=== PATIENT | male | born 1940 | race Caucasian/White ===

== ENCOUNTER 2018-04-01 15:32 | Outpatient (REF) | payer MEDICARE, OTHER, SELFPAY ==
[2018-04-01 19:31] LABS: Anion Gap 11.8 mmol/L (3-11); CO2 23.2 mmol/L (21.0-32.0); Chloride 108 mmol/L (98-107); Potassium 4.2 mmol/L (3.5-5.1); Sodium 143 mmol/L (136-145)
[2018-04-01 20:18] LABS: BUN 21 mg/dL (7-18); CREATININE 1.66 mg/dL (0.70-1.30); Calcium 8.5 mg/dL (8.5-10.1); Estimated GFR 40.48 (mL/min/1.73m2); Glucose 121 mg/dL (70-100); NT-proBNP 1569 pg/mL
== END 2018-04-01 15:52 ==
LOC: NCHCN 15:32
PROVIDERS: PCP Internal Medicine; Visit Provider Family Medicine
DX: I50.9 Heart failure, unspecified (principal); R05 Cough
CPT/HCPCS: 80048; 83880

== ENCOUNTER 2018-04-01 16:03 | Outpatient (CLI) | payer MEDICARE, OTHER, SELFPAY ==
--- NOTE | 2018-04-01 15:11 | DI.RAD_ITS ---
SYMPTOMS/DIAGNOSIS: COUGH, R05 PA AND LATERAL CHEST: Comparison is made with March,. The heart is enlarged, unchanged. The aorta is mildly tortuous. The lungs appear clear. No infiltrate, effusion or pulmonary edema is seen. Surgical clips are seen in the right upper quadrant. There are prominent osteophytes in the thoracic spine. IMPRESSION: Cardiomegaly. No acute abnormality.
== END 2018-04-01 16:23 ==
PROVIDERS: PCP Internal Medicine; Visit Provider Family Medicine
DX: R05 Cough (principal); I51.7 Cardiomegaly
CPT/HCPCS: 71046

== ENCOUNTER 2019-01-27 15:22 | Outpatient (CLI) | payer MEDICARE, OTHER, SELFPAY ==
--- NOTE | 2019-01-27 16:02 | PFT_ITS ---
PULMONARY FUNCTION TEST REPORT DATE OF SERVICE: January 27, 2019 REQUESTING PROVIDER: Tiera Phillip M.D. Spirometry shows no evidence of obstructive disease; no bronchodilator response. Lung volumes show mild restriction. Diffusion capacity mildly reduced, which is normal when corrected to alveolar volume, though it is somewhat suboptimal patient effort. Airways resistance normal. IMPRESSION: Suboptimal patient effort for spirometry. Lung volume measurements are consistent with mild restriction. This is associated with mild diffusion defect, though the diffusion capacity maneuver was also suboptimal. Therefore clinical correlation recommended. BEATRIZ/marcos D/
[2019-01-27] MEDS: Inhaler, Assist Device 1 EACH MC (16:46)
[2019-01-27] MEDS: Albuterol HFA 18 GM 200 PUFF INH IH (16:47)
== END 2019-01-27 15:42 ==
PROVIDERS: Visit Provider Family Medicine
DX: R05 Cough (principal); R06.09 Other forms of dyspnea
CPT/HCPCS: 94060; 94150; 94726; 94729

== ENCOUNTER 2019-02-03 01:16 | Outpatient (CLI) | payer MEDICARE, OTHER, SELFPAY ==
--- NOTE | 2019-02-03 12:00 | DI.CT_ITS ---
SYMPTOM/DIAGNOSIS: CHRONIC COUGH, R05 CHEST CT: CT scan of the chest was performed following the uneventful administration of intravenous contrast material. The visualized thyroid gland is unremarkable. There is atherosclerosis of the thoracic aorta but no aneurysm or dissection is seen. The heart is enlarged. No significant pericardial effusion is seen. Coronary artery calcifications are present. No thoracic adenopathy, pleural effusion or pneumothorax is identified. The tracheal air shadow is unremarkable. No pulmonary masses are seen. Mild apparent peripheral interstitial fibrotic changes are seen. No focal consolidating infiltrates are identified. Upper abdominal images show the patient is status post cholecystectomy. There is a small hiatal hernia. 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 IMPRESSION: 1. Cardiomegaly. 2. Findings most suggestive of pulmonary fibrosis. No acute pulmonary process. 3. No evidence of a thoracic mass or metastatic disease. 4. Cardiomegaly.
[2019-02-03 12:39] LABS: Estimated GFR 36.77 (mL/min/1.73m2)
[2019-02-03] MEDS: Omnipaque 350 MG/ML 100 ML BTL IJ (13:07)
== END 2019-02-03 01:36 ==
PROVIDERS: PCP Family Medicine; Visit Provider Family Medicine
DX: R05 Cough (principal); I51.7 Cardiomegaly; J84.10 Pulmonary fibrosis, unspecified; Z13.29 Encounter for screening for other suspected endocrine disorder
CPT/HCPCS: 71260; 82565; J3490

== ENCOUNTER 2019-02-13 16:54 | Outpatient (REF) | payer MEDICARE, OTHER, SELFPAY ==
[2019-02-13 16:06] LABS: Anion Gap 13.2 mmol/L (3-11); BUN 21 mg/dL (7-18); CO2 21.8 mmol/L (21.0-32.0); CREATININE 1.65 mg/dL (0.70-1.30); Calcium 8.6 mg/dL (8.5-10.1); Chloride 107 mmol/L (98-107); Estimated GFR 40.65 (mL/min/1.73m2); Glucose 115 mg/dL (70-100); Potassium 4.2 mmol/L (3.5-5.1); Sodium 142 mmol/L (136-145)
== END 2019-02-13 17:14 ==
LOC: NCHCN 16:54
PROVIDERS: PCP Family Medicine; Visit Provider Family Medicine
DX: N18.3 Chronic kidney disease, stage 3 (moderate) (principal)
CPT/HCPCS: 80048

== ENCOUNTER 2020-04-04 13:58 | Outpatient (REF) | payer MEDICARE, OTHER, SELFPAY ==
[2020-04-04 19:35] LABS: HCT 41.5 % (40.0-50.0); HGB 13.7 g/dL (13.5-17.5); MCH 33.7 pg (27.0-33.0); MCV 102.2 fL (80-95); MPV 10.5 fL (8.0-11.0); Platelet Count 232 10^3/uL (130-400); RBC 4.06 10^6/uL (4.36-5.78); RDW 13.1 % (11.8-14.1); RDW-SD 49.7 fL; WBC 5.34 10^3/uL (4.4-10.8)
[2020-04-04 19:40] LABS: ALT 22 U/L (16-63); AST 29 U/L (15-37); Albumin 3.3 g/dL (3.4-5.0); Alkaline Phosphatase 72 U/L (46-116); Anion Gap 12.1 mmol/L (3-11); BUN 16 mg/dL (7-18); Bilirubin, Total 1.4 mg/dL (0.2-1.0); CO2 22.9 mmol/L (21.0-32.0); CREATININE 1.42 mg/dL (0.70-1.30); Calcium 8.5 mg/dL (8.5-10.1); Chloride 105 mmol/L (98-107); Estimated GFR 48.22 (mL/min/1.73m2); Glucose 116 mg/dL (74-106); Sodium 140 mmol/L (136-145); TSH (W/Ref FT4) 1.38 uIU/mL (0.36-3.74); Total Protein 6.2 g/dL (6.4-8.2)
[2020-04-04 21:08] LABS: Hemoglobin A1C 5.8 % (<5.7)
== END 2020-04-04 14:18 ==
LOC: NCHCN 13:58
PROVIDERS: PCP Family Medicine; Visit Provider Family Medicine
DX: R73.03 Prediabetes (principal); I48.91 Unspecified atrial fibrillation; I10 Essential (primary) hypertension
CPT/HCPCS: 80053; 85027; 83036; 84443

== ENCOUNTER 2020-04-08 10:32 | Outpatient (REF) | payer MEDICARE, OTHER, SELFPAY ==
[2020-04-08 19:35] LABS: Folate 10.5 ng/mL (8.6-20.0); Vitamin B12 413 pg/mL (193-986)
== END 2020-04-08 10:52 ==
LOC: NCHCN 10:32
PROVIDERS: PCP Family Medicine; Visit Provider Family Medicine
DX: R53.83 Other fatigue (principal); E53.9 Vitamin B deficiency, unspecified
CPT/HCPCS: 82607; 82746

== ENCOUNTER 2021-01-09 13:20 | Outpatient (REF) | payer MEDICARE, OTHER, SELFPAY ==
[2021-01-09 19:33] LABS: HCT 39.1 % (40.0-50.0); HGB 12.9 g/dL (13.5-17.5); MCV 103.2 fL (80-95); MPV 10.1 fL (8.0-11.0); Platelet Count 216 10^3/uL (130-400); RBC 3.79 10^6/uL (4.36-5.78); RDW 13.2 % (11.8-14.1); RDW-SD 50.4 fL; WBC 6.88 10^3/uL (4.4-10.8)
[2021-01-10 12:01] LABS: Vitamin B12 > 2000 pg/mL (193-986)
== END 2021-01-09 13:21 | disposition home or self-care (01) ==
LOC: LBN 13:20
PROVIDERS: PCP Family Medicine; Visit Provider Family Medicine
DX: E53.9 Vitamin B deficiency, unspecified (principal); R53.83 Other fatigue
CPT/HCPCS: 85027; 82607

== ENCOUNTER 2021-03-19 11:42 | Outpatient (REF) | payer MEDICARE, OTHER, SELFPAY ==
[2021-03-19 14:34] LABS: HCT 42.2 % (40.0-50.0); MCH 33.3 pg (27.0-33.0); MCHC 33.2 % (32.0-36.0); MCV 100.5 fL (80-95); MPV 10.3 fL (8.0-11.0); Platelet Count 232 10^3/uL (130-400); RDW 13.1 % (11.8-14.1); RDW-SD 48.7 fL; WBC 6.35 10^3/uL (4.4-10.8)
[2021-03-19 15:38] LABS: Iron 110 ug/dL (65-175); Total Iron Binding Capacity 246 ug/dL (250-450); Transferrin Sat 45 % (20-55)
[2021-03-19 15:49] LABS: Ferritin 192 ng/mL (26-388); Folate 6.8 ng/mL (8.6-20.0)
== END 2021-03-19 11:43 | disposition home or self-care (01) ==
LOC: NCHCN 11:42
PROVIDERS: PCP Family Medicine; Visit Provider Family Medicine
DX: D64.9 Anemia, unspecified (principal)
CPT/HCPCS: 85027; 82728; 82746; 83540; 83550

== ENCOUNTER 2021-04-17 14:56 | Outpatient (REF) | payer MEDICARE, OTHER, SELFPAY ==
[2021-04-17 19:11] LABS: ALT 24 U/L (16-63); AST 32 U/L (15-37); Albumin 3.8 g/dL (3.4-5.0); Alkaline Phosphatase 89 U/L (46-116); Anion Gap 13.3 mmol/L (3-11); BUN 16 mg/dL (7-18); Bilirubin, Total 1.2 mg/dL (0.2-1.0); CO2 24.7 mmol/L (21.0-32.0); CREATININE 1.4 mg/dL (0.70-1.30); Calcium 8.9 mg/dL (8.5-10.1); Calculated LDL 74 mg/dL (<100); Chloride 105 mmol/L (98-107); Cholesterol 137 mg/dL (<200); Estimated GFR 48.89 (mL/min/1.73m2); Folate > 20.0 ng/mL (8.6-20.0); Glucose 133 mg/dL (74-106); HDL Cholesterol 45 mg/dL (40-60); Potassium 4.4 mmol/L (3.5-5.1); Sodium 143 mmol/L (136-145); Total Protein 7.1 g/dL (6.4-8.2); Triglyceride 91 mg/dL (<150); Vitamin B12 > 2000 pg/mL (193-986)
[2021-04-17 19:14] LABS: HCT 43.3 % (40.0-50.0); HGB 13.9 g/dL (13.5-17.5); MCH 33.3 pg (27.0-33.0); MCHC 32.1 % (32.0-36.0); MCV 103.8 fL (80-95); MPV 10.5 fL (8.0-11.0); Platelet Count 244 10^3/uL (130-400); RBC 4.17 10^6/uL (4.36-5.78); RDW 13.6 % (11.8-14.1); RDW-SD 51.8 fL; WBC 8.52 10^3/uL (4.4-10.8)
[2021-04-17 19:29] LABS: NT-proBNP 1070 pg/mL (<300)
[2021-04-17 20:13] LABS: Hemoglobin A1C 5.9 % (<5.7)
== END 2021-04-17 14:57 | disposition home or self-care (01) ==
LOC: NCHCN 14:56
PROVIDERS: PCP Family Medicine; Visit Provider Family Medicine
DX: I10 Essential (primary) hypertension (principal); I50.32 Chronic diastolic (congestive) heart failure; E78.5 Hyperlipidemia, unspecified; N18.30 Chronic kidney disease, stage 3 unspecified; D53.1 Other megaloblastic anemias, not elsewhere classified
CPT/HCPCS: 80053; 80061; 85027; 82607; 82746; 83036; 83880

== ENCOUNTER 2022-04-13 13:22 | Outpatient (REF) | payer MEDICARE, OTHER, SELFPAY ==
[2022-04-13 15:41] LABS: Hemoglobin A1C 5.8 % (<5.7)
[2022-04-13 16:01] LABS: Anion Gap 10.7 mmol/L (3-11); BUN 15 mg/dL (7-18); CO2 22.3 mmol/L (21.0-32.0); CREATININE 1.4 mg/dL (0.70-1.30); Calcium 9.1 mg/dL (8.5-10.1); Chloride 106 mmol/L (98-107); Estimated GFR 50.81 (mL/min/1.73m2); Glucose 118 mg/dL (74-106); NT-proBNP 950 pg/mL (<300); Potassium 4.2 mmol/L (3.5-5.1); Sodium 139 mmol/L (136-145)
--- OUTSIDE RECORDS SUMMARY | 2022-04-14 13:30 | XMS_ITS | Encounter Summary ---
:1940 Author Organization [facility] Address [address] [place] [address] Care Team Providers Name Role Phone Tiera Phillip MD Primary Care Provider Reason for Visit Reason Comments Procedure Encounter Details Date Type Department Care Team Description 03/17[facility]20[facility] palm[facility] carcinoma Kelly Bridges MD (BCC) of skin of [address] [facility] [place] [address] [address] [address] including shoulder [phone] [facility] [place], [place] [address] Social History Tobacco Use Types Packs/Day Years Used Date Never Smoker Smokeless Tobacco: Never Used Alcohol Use Standard Drinks/Week Comments No 0 (1 standard drink = 0.6 oz pure alcoho l) Sex Assigned at Date Recorded Not on file documented as of this encounter Patient Instructions Patient InstructionsJoy Zendejas RN - 03/17/2022 4:00 PM EDT ED&C Wound Care Instructions Your treatment today: You have had an Electrodesiccation and Curettage (ED&C) of your skin, which is a method to destroy skin cancer. This wound will heal without stitches. Allow 3-6 weeks for the wound to heal fully. If bleeding occurs, hold firm, constant pressure against the wound for 15-20 minutes (with no peeking). If bleeding continues, call the clinic or go to your local emergency department. Wound care instructions: Keep the bandage placed over the wound dry and intact for 24 hours. Afterwards, perform the following wound care daily: Wash your hands. Remove the bandage, clean the area with soap and water, and gently pat dry. Apply a small amount of Vaseline and cover with a Band-Aid. Repeat daily until the wound is healed fully. A small amount of yellow drainage is part of the normal healing process. The area might appear as a small depression with redness around the edge of the wound; this is normal. Please contact the clinicif you notice any of the following signs of infection: increased pain, tenderness, drainage, or redness that becomes hot or hard around the wound. Contact information: On weekdays (8 am to 5 pm), please call the clinic at [phone]. After 5 pm, and on weekends and holidays, please call the hospital at [phone] and ask for the Financial Retirement Plan Specialist Cold Rolling Machine Setter. documented in this encounter Progress Notes Blanca Feliciano MD - 03/17/2022 4:00 PM EDT Images from the original note were not included. DEPARTMENT OF DERMATOLOGY Medical Dermatology Clinic Provider: BLANCA FELICIANO MD Patient's preferred name Reinier Preferred contact method for results [x]Phone (Cell) []myD-H []Letter Detailed phone message OK? Yes Are there any other people with whom we may discuss your care? (Alexandra) Past Medical History Date, location, treatment Melanoma 08/2010??(outside path):??Right forearm,??melanoma??(s/p excision, negative SLNB) Dysplastic nevi No SCC 03/27/19: Right lateral canthus, SCC (s/p Mohs) 03/27/19: Right lateral eyebrow, SCC (s/p Mohs) BCC 07/04/12:??Right clavicle, BCC??(s/p ED&C) 04/14/16:??Left preauricular, nodular BCC??(s/p ED&C) 02/09/17:??Left nasal ala, nodular BCC??(s/p Mohs) 03/03/22: Right forearm, nodular BCC (s/p ED&C 03/17/22) AKs Numerous; s/p LN2 UV Exposure & Protection No Other relevant past medical history 02/17/12: Right forearm, HAK (LN2) ?? Xerosis Family History Details Melanoma No NMSC No Other relevant family history No Social History Occupation: Retired Served 26 years in the [employer] Marital status: [place] in [place] and [place] Pre-Procedure Questions Details Allergy to lidocaine, epinephrine, Dermabond, chlorhexidine, or adhesives No Bleeding disorder or blood thinners Yes: Xarelto Pacemaker, defibrillator, deep brain stimulator, cochlear implant No History of Present Illness: Reinier Ramirez is a 81 y.o. Patient returns to clinic today for treatment of a biopsy-proven nodular basal cell carcinoma on the right forearm. Last FSE 03/03/22 (waist-up exam) Medications: Reviewed in eD-H Allergies: Reviewed in eD-H Skin Examination: Focused skin examination of the right forearm was normal with the exception of the findings below. Assessment/Plan A. Biopsy-Proven BCC (nodular) - 0.7 cm healing biopsy site on the right forearm. - Reviewed pathology and ED&C procedure with patient. Rexford decision to proceed with ED&C today. - Patient denies allergies to lidocaine and epinephrine. - Patient denies having a pacemaker or defibrillator. Procedure: Destruction of lesion by electrodesiccation and curettage (ED&C) Location: As noted above. Discussed indications and expectations including risks and benefits. Verbal consent obtained. Skin prepped with alcohol. Local anesthesia with 1% xylocaine, 1/100,000 epinephrine. The entire lesion plus a small margin was treated. Post- curettage defect size: 1.5 cm. There were no complications; patient tolerated the procedure well. Wound dressed. Expectations (including discomfort management) and wound care reviewed. Other: ??? Reviewed and/or interpreted test results RTC: February 2023 for 1-yr FSE []Note routed to alumni secretary [x]Recall in scheduling system []Appointment scheduled at checkout Scribe attestation: Paradise Brar CMA and Joy Zendejas RN have performed the documentation for this encounter in the presence of and acting as a scribe for BLANCA FELICIANO MD. I performed the above scribed service and agree with the accuracy of the documentation in this encounter. Reviewed and signed by: BLANCA FELICIANO MD Dermatology [facility] documented in this encounter Plan of Treatment Not on filedocumented as of this encounter Visit Diagnoses Diagnosis Basal cell carcinoma (BCC) of skin of [facility] upper extremity including shoulder documented in this encounter Care Teams Meter And Regulator Shop Supervisor Relationship Specialty Start Date End Date Tiera Phillip MD PCP - General Family Medicine 02/09/19 [address] [place] [address] documented as of this encounter
--- OUTSIDE RECORDS SUMMARY | 2022-04-14 13:30 | XMS_ITS | Clinical Summary ---
:1940 Author Organization [facility] [place] [address] Care Team Providers Name Role Phone Tiera Phillip MD Primary Care Provider Allergies Active Allergy Reactions Severity Noted Date Comments Fpvjqkl-Acf-Qaq Reductase Inhibitors 12/2014 Swelling in joints Medications Medication Sig Dispensed Refills Start Date End Date Status finasteride (PROSCAR) Take 5 mg by mouth 0 Active 5 mg Tablet daily. furosemide (LASIX) 40 Take 10 mg by 0 Active mg Tablet mouth daily. potassium chloride Take 20 mEq by 0 Active (KLOR-CON) 20 mEq mouth daily. Packet triamcinolone Apply to affected 45 g 0 02/07/2019 Active (KENALOG) 0.1 % areas on underarms CreamIndications: 2x/day for 2 weeks Irritant contact then stop dermatitis, unspecified trigger Additional Information Patient not taking. Reported on 02/12/2020 atenolol (TENORMIN) 25 mg TAKE 1 TABLET DAILY 90 tablet 3 08/2018 Active TabletIndications: Chronic atrial fibrillation, Essential hypertension, Left ventricular hypertrophy simvastatin (ZOCOR) 10 mg TAKE 1 TABLET NIGHTLY 90 tablet 3 Active TabletIndications: ASCVD (arteriosclerotic cardiovascular disease) XARELTO 20 mg TabletIndications: TAKE 1 TABLET DAILY 90 tablet 3 04/19/2019 Active Chronic atrial fibrillation, Essential hypertension, Left ventricular hypertrophy Active Problems Problem Noted Date (HFpEF) heart failure with preserved ejection fraction 04/27/2019 Chronic cough 04/27/2019 Anemia of chronic renal failure, stage 3 (moderate) Rupture of right quadriceps tendon 04/14/2017 Rupture of left quadriceps tendon 04/14/2017 Primary osteoarthritis of both knees 04/14/2017 Chronic pain of both knees 04/14/2017 Possible ASCVD (arteriosclerotic cardiovascular diseas e) 04/07/2017 Overview: ?? Inferior wall motion abnormalities on echo's at [facility] 02/15/14 and 03/30/17 ?? Nuclear stress test at [facility] 10/26/16 showing normal perfusion ?? Kurta Edmund March 30, 2017 show ing normal left ventricular size, ejection fraction 60%, and wall motion abnormalities with inferior hypokinesia. ?? Regadenoson sestamibi [facility] April 22, 2017 showing normal perfusion; normal wall thickening MICK (obstructive sleep apnea) 02/19/2015 Morbid obesity 02/19/2015 Bilateral leg weakness 02/19/2015 Chronic atrial fibrillation 02/17/2014 Overview: ?? Diagnosed 11/2013, without symptoms du ring visit with pharmacist hospital, ?? Asymptomatic ?? [id number] score = 2 (age and HTN) Hypertension 02/17/2014 Diverticulosis 02/17/2014 Left ventricular hypertrophy 02/17/2014 Overview: -TTE 02/17/2014 shows eccentric left ventr icular enlargement (moderate LV dilation with LVEDD 6.3cm, normal LVEF 55%, no concentric LVH) AK (actinic keratosis) 02/01/2014 History of melanoma 04/28/2013 Resolved Problems Problem Noted Date Resolved Date Snoring 02/17/2014 02/19/2015 Encounters Date Type Specialty Care Team Description 03/17/2022 Office Visit Dermatology Sakshi Meek MD Basal cell carcinoma (BCC) of skin of righ t upper extremity inclu ding shoulder 03/03/2022 Office Visit Dermatology Sakshi Meek MD Neopl asm of unspecified behavior of bone, soft tissue, and skin; AK (actinic ker atosis); Kelly angioma; Xerosis of skin from Last 3 Months Social History Tobacco Use Types Packs/Day Years Used Date Never Smoker Smokeless Tobacco: Never Used Alcohol Use Standard Drinks/Week Comments No 0 (1 standard drink = 0.6 oz pure alcoho l) Sex Assigned at Date Recorded Not on file Last Filed Vital Signs Vital Sign Reading Time Taken Comments Blood Pressure 109/44 04/14/2019 10:41 AM EDT Pulse 76 04/14/2019 10:41 AM EDT Temperature - - Respiratory Rate 24 04/14/2019 10:41 AM EDT Oxygen Saturation 96% 04/14/2019 10:41 AM EDT Inhaled Oxygen Concentration - - Weight 122.5 kg (270 lb) 04/14/2019 10:41 AM EDT Height 180.3 cm (5' 11) 04/14/2019 10:41 AM EDT Body Mass Index 37.66 04/14/2019 10:41 AM EDT Plan of Treatment Health Maintenance Due Date Last Done Comments Covid-19 Vaccine (#1) 1945 Pneumoccocal Vaccine: 65+ (1 - PCV) 1946 Hepatitis C Screening 1959 Tdap adult 1960 Tetanus vaccine 1960 Zoster vaccine (1 of 2) 1991 Advance Directive 1996 Influenza (Flu) vaccine (1 of 1 - Influenza standard 03/19/2022 series) Procedures Procedure Name Priority Date/Time Associated Diagnosis Comme nts SPECIMEN TO Routine 03/03/2022 11:44 AM Neoplasm of Results for this PATHOLOGY EDT unspecified behavior procedu re are in of bone, soft the results tissue, and skin section. SURGICAL PATHOLOGY Routine 03/03/2022 11:38 AM Re sults for this REPORT EDT procedure are i n the results section. from Last 3 Months Results Specimen to Pathology (03/03/2022 11:44 AM EDT) Specimen Anatomical Collection Method Collection Time Receive d Time (Source) Location / / Volume Laterality AP Specimen 03/03/2022 11:44 03/03/2022 AM EDT 11:44 AM EDT Narrative [facility] - 03/03/2022 11:44 AM EDT Specimen requisition ordered. ??Separate Pathology report to follow Sakshi Meek MD PATHOLOGY/CYTOLOGY ORDERABLE S Performing Organization Address City/State/[place] [address] Surgical Pathology Report (03/03/2022 11:38 AM EDT) Component Value Ref Test Analysis Performed At [facility] Range Method Time Signature Surgical -[id number] ? Location: [facility] MIKE Report The signing pathologist has (i) examined the relevant preparation(s) for the [facility] specimen(s) and (ii) rendered or confirmed the diagnosis(es) . HOSPITAL LAB[facility]ORY . ?Surgic al Pathology DIAGNOSIS A. R ight forearm, skin shave biopsy: - ??Basal cell carcinoma, nodular type, transected Electronically signed by: ?Heidi SAUCEDO, Reinier Catalan Verified: ??03/05/2022 14:03 ??Dermatopathologist Performed at: ??-[facility] Dept. of Pathology, [place], [place] SPECIMEN(S) SUBMITTED A - right forearm, skin shave biopsy (1) CLINICAL INFORMATION Heme crusted plaque; SCC SPECIMEN PROCESSING A - Labeled/Fixative: Patient demographics, formalin. Quantity/Size: ??Single, 1.0 x 1.0 x 0.3 cm. Tissue Description: Shave of a pink-red, crusted skin plaque . Sections/Processing: Inked, trisected and entirely submitted in 1 cassette labele d A1. ??sns Specimen (Source) Anatomical Collection Method Collection Time Re ceived Time Location / / Volume Laterality 03/03/2022 11:38 AM EDT Sakshi Meek MD PATHOLOGY/CYTOLOGY ORDERABLE S Performing Organization Address City/State/ZIP Code [place] [address] [facility] [address] from Last 3 Months Insurance Payer Benefit Plan / Subscriber ID Effective Dates Phone Addre ss Type Group MEDICARE MEDICARE PART [id number] 2006-Prese [phone] [place] [phone] FOR FOR [id number] 2018-Prese [phone] [address] [place] [address] Care Teams Oral And Maxillofacial Surgeon Relationship Specialty Start Date End Date Tiera Phillip MD PCP - General Family Medicine 02/09/19 [address] [place] [address]
--- OUTSIDE RECORDS SUMMARY | 2022-04-14 13:30 | XMS_ITS | Encounter Summary ---
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 ey e canthus [address] [place] [facility] [id number] [facility] [phone] [place] [id number] Social History Tobacco Use Types Packs/Day Years Used Date Never Smoker Smokeless Tobacco: Never Used Alcohol Use Standard Drinks/Week Comments No 0 (1 standard drink = 0.6 oz pure alcoho l) Sex Assigned at Date Recorded Not on file documented as of this encounter Last Filed Vital Signs Vital Sign Reading Time Taken Comments Blood Pressure 117/77 04/07/2019 9:44 AM EDT Pulse 68 04/07/2019 9:44 AM EDT Temperature - - Respiratory Rate - - Oxygen Saturation - - Inhaled Oxygen Concentration - - Weight - - Height - - Body Mass Index - - documented in this encounter Patient Instructions Patient InstructionsToMariana nunez CMA - 04/07/2019 9:30 AM EDT Your staff surgeon today was [facility] Wong MD,PhD. Your wound(s) was repaired by [id number]-[id number] stitches called a primary repair. You do not need to come back for suture removal because only absorbablysutures were used today. If the absorbable sutures bother your skin or do not absorb after 2 weeks, you may call us to remove them for you. Instructions are as below. Please keep this as a reference: Wound Care For wounds closed with absorbable-only stitches: ??? Gently remove your initial bandage (after 48 hours from surgery) and begin wound care as below. ??? If your initial bandage only lasts 24 hours (for example, falls off sooner), this is okay. Resume your wound care and bandaging instructions as below. ??? Change your bandage once a day (and whenever it becomes wet or soaks through). DO WOUND CARE FORONE WEEK. ??? For bandage changes: o Wash hands with soap and water, or use gloves that you can purchase a local pharmacy or drug store. o Clean the surgical area with cotton-tipped swabs or gauze dipped in soapy water (recommend liquid soap in clean room temperature water). Do not scrub the area or put direct shower water pressure ontoyour wound. It is okay to allow soapy water to run over your wound in the shower. o If you cannot remove crusted areas, you may soak with wet gauze first for 15 to 20 minutes to helpsoften it o Pat the area dry with clean gauze or cotton swabs. Do not rub. o Use a cotton swab to apply a generous layer of petroleum jelly over the incision lines and any open-wound areas. o Cover with clean nonstick gauze or other nonstick dressing, such as Telfa. This may be purchased over the counter at a drug store. Secure with paper tape or bandage. Band-aids are okay, but typicallyhave more adhesive that can irritate the skin compared to paper tape. o Continue wound care daily until stitches are removed. o Discontinue wound care after 7 days. o Allow the absorbable stitches to heal. If the top stitches that are absorbable are irritating yourskin, you may call us to have them removed. Otherwise, they will be absorbed naturally in approximately 2 weeks. It may absorb as quickly as 4 days. After Surgery 1. Avoid tobacco, smoking/vapors, cigars, and cannabis (marijuana) for at least 3 weeks after your surgery. These prevent proper healing and lead to worse scarring. Cutting back on tobacco is helpful if you cannot abstain completely. 2. Do not drink alcohol for roughly 3 days as this can slow healing or cause bleeding. 3. Do not participate in athletic activities for 1 week, unless you were told a different timeline during your visit. Athletic activity is a relative term, but this is considered to be anything that could potentially raise your heartrate or blood pressure. Elevating your heart rate and blood pressure increases the risk of swelling, bleeding, wound opening, and it could lead to worse scarring. Walkingat a leisurely pace is fine for most people, but not if you are walking for the purpose of exercise.When in doubt, take it easy or call us. 4. Do not lift anything heavier than 10 pounds until your sutures are removed. 5. Some mechanical artist may need to be delayed or delegated such as vacuuming, mowing the lawn, snow shoveling, or caring for young children that need to be carried/lifted. Working any major muscle groups increases your heart rate and can increasing bleeding. 6. Avoid swimming, hot tubs, and direct water pressure for 3 weeks after surgery. You may shower, however, once your initial bandage comes off in 48 hours. 7. Avoid antibiotic ointments such as triple antibiotic creams. Stick with your wound care instructions, please. 8. Whenever possible, it is helpful to take photographs with your camera or cell phone of any problems or concerns you see with your wound. We often ask for photos when you call with questions. 9. Starting 2 months following surgery, you can begin firm massage to any areas of firm scar along your incision to soften the scar and reduce bumpiness. Do this 3 times per day, 3 minutes each time. Do not start massage before 2 months. 10. Your wound will appear almost completely healed soon after sutures are removed (about 1 week), but incisions can remain bright red for several weeks. Then the scarring and healing process continuesunder the skin for 6 months until to 2 years. The scar may become less red, less firm, and more subtle during this time; please note that the rate of improvement varies depending on the person. Most redness, discoloration, bumpiness resolves by 6 months, and most patients will look presentable within a few weeks after surgery. 11. Keep your follow-up appointments and make sure to continue to have your skin checked, as often as is recommended by your goods layer, for new skin cancers. This is once per year for most patients. 12. Your can expect your scar to be red for several weeks with gradual fading of the redness. Your scar will also be raised and lumpy until the dissolvable sutures under the skin get absorbed by your body which can take 3-4 months. The scar will flatten eventually. a. If you have a skin condition called rosacea, the redness can last long-term, or you can get an increased appearance of red vessels to the skin. The appearance of vessels slightly improves, but tendsto respond well to laser treatments. 13. Occasionally, about 20% of the time on the face, the stitches under the skin can spit out of the incision to the surface. It can start out looking like a pimple or blemish directly on your incision. Sometimes you can feel something poking through the incision. it can look also minic a small areaof infection, so please let us know before you go to another provider for antibiotics. This means that the suture may need to be trimmed or removed when you return for your wound check. This typically occurs a few weeks after surgery if it does occur. 14. To optimize your scar, and best cosmetic result, please avoid direct sunlight to your incision for the first 6 months following surgery. UV ray exposure to your incision may cause the redness to last longer, or to cause permanent darkening of your scar. You can avoid sun by covering your incision w ith a bandage when outdoors, wearing broad-rimmed hats, and wearing SPF 30 to 50 sunscreen (broad spectrum). 15. Sometimes after your sutures are removed, your incision may still be healing for 1 more week. Because of this, avoid make-up and sunscreen until approximately 2 weeks after surgery. You can begin sooner if your skin edges look completely sealed. 16. Any time you have skin surgery or any type of surgery, you can experience mild sensation loss (numbness) in the area of surgery. Massage starting at 8 weeks after surgery can help. 17. Swelling and bruising is common, and expected, especially if your surgery site was on the forehead, cheeks, temples, nose, or eyelids. . Sometimes it can be quite profound, where the eyelids swell shut, or getting black eyes. This is especially true if you are on blood thinners such as aspirin. Swelling and bruising will peak at about 48 hours after surgery. Bruising and swelling will graduallyresolve. You can use ice packs or a bag of frozen peas for 15-20 minutes, 20 minutes off, up to 3-4 times daily to areas of swelling on the face. Use caution not to put the icy item directly onto your incision, or directly in contact with your skin as this can damage skin. Avoid prolonged use more than 20 minutes. The best way to use ice packs is over the bandage, or using a light cloth/paper towel barrier between the ice pack and your skin. You can ice for as many days as needed until swelling has resolved. Eyelid and lip swelling is typically the last type of swelling to resolve. o Keep in mind that if you do not want to use a bandage at all due to difficulty, allergies, irritation of skin, cost, time, or inconvenience --- you can certainly avoid bandages altogether. However, itis imperative that you continue with topical petrolatum ointment or Aquaphor (plain, fragrance-free). This may need to be applied several times daily if it gets wiped off, washed off, or dries out. Things to purchase for wound care: -Nonstick gauze -A tube or tub of petrolatum jelly (fragrance-free, no dye, not lotion) -paper tape -cotton swabs -gloves (optional) -Dial or other antibacterial liquid soap If you have specific questions or instructions, it can be written/typed by your nurse or doctor here: Antibiotics: If you were given antibiotic prescription, it is important to start them the evening of your surgerydate. However, most patients do not need antibiotics after surgery. For pain: Most patients of different ages do not require pain medications. If you do feel soreness, throbbing or sharp pains, start by taking over the counter extra strength acetaminophen (up to 3000 mg in a 24 hour period). Generally, we like you to avoid NSAIDS (non-steroid anti-inflammatory drugs such as ibuprofen) for the first 48 hours after surgery as this can increase risk of bleeding. However, if acetaminophen is not helping with pain, you can alternate acetaminophen with iburpofen or other NSAID. Icepacks over your bandage without getting your bandage wet can also help with pain and swelling. Frozen peas work well as ice packs. THIS IS AN EXAMPLE OF A PAIN TREATMENT SCHEDULE: 1) You can take 500 mg acetaminophen one tablet by mouth at 6:00pm. This is over the counter. 2) You can take 400 mg of ibuprofen two hours later, at 8:00 pm, or other NSAID such as naproxen, aslong as it does not interact with your other medications and your other doctors have not told you toavoid this. This is over the counter. Check to see how many milligrams (mg) each of your ibuprofen tablets are. Most of the time, ibuprofen comes in 200 mg tablets, so 400 mg would mean taking two of these tablets or capsules. 3) You can take 500 mg of acetaminophen at 10:00 pm. Keep track of your total acetaminophen in a 24 hour period as your maximum should be 3000 mg total in a 24 hour period of this medication. 4) At midnight, you can take another 400 mg of ibuprofen. 5) you can continue on this schedule over the next 2 days, making sure to keep tabs of your total acetaminophen. If you are still in pain after trying the above, please call us. When to call your surgeon: ??? Fever of 100.4 degrees Fahrenheit or higher ??? Bleeding not controlled with direct firm pressure to your wound. Bleeding is most common in the first 48 hours. ??? Pain that is worsening and not relieved by over the counter medications such as acetaminophen (up to 3000 mg in a 24 hour period) ??? Wound reopening after stitching ??? Pus or bad odor from your wound ??? Worsening redness and warmth around your wound ??? If you think your surgery site is infected, please call us before seeking care or antibiotics from other providers ??? Please call us before seeking care in an emergency room or primary care. ??? If you do call, please leave your full name, phone number, date of , date of surgery, and medical record number if you have it. If after hours, please call the dinkey engine operator or [phone] and ask for the goods layer on-call. If you have any non-urgent questions or concerns, please feel free to call my office or contact me through our patient portal, [facility], at [email or web address] How to contact us during business hours Dermatology at [facility]: Mohs scheduling or Mohs follow-up appointments: [phone] documented in this encounter Progress Notes [facility] Wong MD - 04/07/2019 9:30 AM EDT Images from the original note were not included. Summary of Procedure(s): Site: right lateral eyebrow Tumor Type: Squamous Cell Carcinoma Stages to clear tumor: 1 Summary of Procedure(s): Site: right lateral canthus Tumor Type: Squamous Cell Carcinoma Stages to clear tumor: 1 Repair: transposition flap Images: The patient was asked to call with any issues and is aware that I am available 08/02 should questionsarise. Mohs consultation and preoperative note (H&P) Patient Name: Reinier Ramirez Age: 78 y.o. Date of : 1940 Today's Date: 04/07/2019 REFERRING PROVIDER: Sakshi Meek CC: Mohs micrographic surgery for treatment of a cutaneous tumor HPI: Reinier Ramirez is a 78 y.o. 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 Biopsy-proven invasive squamous cell carcinoma, moderately differentiated located on the right lateral canthus. The dermatologic preoperative information sheet was reviewed with pertinent positive and negative as below. DERMATOLOGIC PRE-OPERATIVE EVALUATION AND REVIEW OF SYSTEMS History of Mohs surgery? yes Pacemaker/Defibrillator? no Joint replacement or other implantable devices (e.g. Cochlear implant)? If yes then when? no Do you take a blood thinner? Yes Other: Xarelto History of organ transplant? no History of artificial valve or stroke? no History of liver disease or bleeding disorder? no Do you have any medical problems that may affect your upcoming surgery? no Do you have any concerns regarding your upcoming surgery? no We ask patients to discontinue Fish oil/Multivitamin/Vit E/?? supplements and natural medicines not prescribed by a physician 1 week prior to surgery. SOCIAL HISTORY: Makes Own Decisions Yes Hearing aid or other devices: No Relevant travel history or future plans: [place], [place] Tobacco use (amount per day, type of tobacco): no Do you have any physical limitations that may affect your surgery?: yes, wheelchair ALLERGIES: Allergies reviewed MEDICATIONS: Medications reviewed VITAL SIGNS: BP 117/77 (BP Location (NBP): Left arm, Patient Position: Sitting, BP Cuff Sizes: Large Adult (32-43cm)) Pulse 68 PHYSICAL EXAMINATION: General: patient is awake, alert, oriented and in no acute distress. Skin: Focused examination of surgical site(s) performed which shows an erythematous scar corresponding with recent biopsy site with surrounding erythema. PHYSICIAN REVIEW OF REPORTS, RECORDS, IMAGES: 1) The accompanying pathology report(s) associated with aforementioned biopsy slide(s) were/was alsoreviewed. Assessment: Reinier Ramirez is a 78 y.o. male presenting for: 1. Biopsy-proven squamous cell carcinoma, invasive, well-differentiated located on the right lateraleyebrow. 2. Biopsy-proven squamous cell carcinoma, invasive, moderately-differentiated located on the right lateral canthus. Plan: 1. Findings from the biopsy report, my independent review of the histopathology from the biopsy slides, today's clinical exam, and other pertinent details were reviewed with patient today. All questions were answered. 2. Discussed treatment options based on the above findings. We recommended Mohs micrographic surgeryfor treatment of this tumor. Mohs micrographic surgery was indicated due to patient, site and/or tumor characteristics (see operative report for specific indication). 3. We discussed risks, benefits, and alternative treatment options to the Mohs micrographic surgery procedure and pertinent information including but not limited to the following: ?? Risks include bleeding, infection, scar, recurrence, incomplete tumor removal or inability to cure with surgery alone if the tumor features are more aggressive than the initial pathology indicates. Occasionally, additional adjuvant treatments may be recommended. Additional risks include large wound, prolonged wound and healing, pain, swelling, bruising, increased appearance of vessels or worseningerythema of baseline skin; more rarely risks include damage to underlying structures such as nerves,cartilage, or muscle which could lead to temporary or permanent loss of sensation or motor function. ?? Benefit is precise tumor removal ?? If reconstruction is performed, it is specific to the patient and defect. ?? Discussed that the shape, size, depth of the wound is often not known until the tumor is cleared and thus the reconstruction options are sometimes not known until after tumor clearance. Occasionally, referrals to other providers may be recommended for reconstruction based on patient preference and need. ?? Reviewed the pros and cons of common reconstructions used for this tumor type, size, and location, and that reconstruction may lead to change in appearance. ?? Natural history of scar was discussed, including that the scar will continue to mature for 1-2 years. Recommended avoidance of special ointments or scar creams, and avoidance of direct sun exposure to the scar for optimal recovery. ?? Reviewed that there are some aspects of cosmesis that are dependent on patient's characteristics such as age, skin laxity/texture factors, inflammatory skin diseases such as rosacea, prior surgery/radiation, degree of actinic damage, smoking status, strength of the patient's immune system, diligentwound care, medications, and genetics. ?? Having Mohs surgery may lead to physical limitations for optimal healing, such as restricted physical activity and heavy lifting. 4. The nature of sun-induced photo-aging and skin cancers was discussed. Recommended sun avoidance when possible, especially peak hours of sun 10 am to 2pm, protective clothing such as wide-brimmed hats and long-sleeved clothing, and the use of SPF broad-spectrum sunscreen SPF 50 or higher. 5. Signs and symptoms of skin cancer reviewed. Patient to report any new, changing, or symptomatic lesions and follow up with his or her goods layer or other skin provider. 6. Discussed avoiding direct sun exposure to scars for best cosmetic result. Mason Wong MD PhD Mohs Micrographic Surgery and Dermatologic Oncology Section of Dermatology, Department of Surgery [facility] Wong MD - 04/07/2019 9:30 AM EDT Mohs micrographic Surgery Operative Report Patient name: Reinier Ramirez : 1940 Date: 04/07/2019 Staff Surgeon: Mason Wong MD PhD Nursing/Mri Supervisor(s): Yen Barahona LPN, Mariana Pandey CMA, Shameka Treviño LPN, Bettye Lincoln MA Panel Sewer (s): Kimberley Aguero, Lia Dos Santos Pre-operative diagnosis: Squamous Cell Carcinoma, invasive/ well differentiated Post-operative diagnosis: Squamous Cell Carcinoma, invasive/ well differentiated Location/Site: right lateral eyebrow Procedure: Mohs micrographic surgery Indication(s) for Mohs micrographic surgery: Anatomic location for tissue conservation Stages: 1 Preoperative size of tumor: 1.0 x 0.8 cm Stage I The nature and purpose of the procedure, associated risks, possible consequences and complications,and alternative forms of treatment were explained in detail. We reviewed the possible repairs based on the clinical appearance of tumor but discussed that often the repair options may not be known until the tumor has regine extirpated. Informed consent and permission to take photographs were obtained. The site was confirmed with the patient/authorized outside energy sales representatives/referring physician and/or a photograph form time of biopsy. A pre-operative time-out (procedural pause) was conducted with no unresolved d iscrepancies noted. Local anesthesia was obtained with 1% lidocaine with 1:100,000 epinephrine. The surgical site was prepped and draped in the usual sterile manner. With all visible gross tumor completely excised, the borders of the tumor and 2-3 mm margins were excised as a complete layer. Hemostasis was achieved by electrocoagulation. The excised tissue was oriented and divided into 2 sections, chromacoded, and submitted for frozen sections. The patient tolerated the procedure well and without complications. On microscopic evaluation of the frozen sections, no residual tumor was identified on the deep or outer border of the sections. The final size of the defect after complete tumor removal was 1.5 x 1.0 cm, extending to level of subcutaneous tissue. Mohs micrographic Surgery Operative Report Patient name: Reinier Ramirez : 1940 Date: 04/07/2019 Staff Surgeon: Mason Wong MD PhD Nursing/Mri Supervisor(s): Shreya Greene LPN, Odette Malone CMA, Ellen Blue RN, KarthikDoctors Medical CenterOpal WEEKS, Mariana Pandey CMA, Shameka Treviño LPN, Bettye Lincoln [facility] Panel Sewer (s): Lia Beckett Pre-operative diagnosis: Squamous Cell Carcinoma,invasive / moderately differentiated Post-operative diagnosis: Squamous Cell Carcinoma, invasive / moderately differentiated Location/Site: right lateral canthus Procedure: Mohs micrographic surgery Indication(s) for Mohs micrographic surgery: Anatomic location for tissue conservation Stages: 1 Preoperative size of tumor: 0.8 x 0.6 cm Stage I The nature and purpose of the procedure, associated risks, possible consequences and complications,and alternative forms of treatment were explained in detail. We reviewed the possible repairs based on the clinical appearance of tumor but discussed that often the repair options may not be known until the tumor has regine extirpated. Informed consent and permission to take photographs were obtained. The site was confirmed with the patient/authorized outside energy sales representatives/referring physician and/or a photograph form time of biopsy. A pre-operative time-out (procedural pause) was conducted with no unresolved d iscrepancies noted. Local anesthesia was obtained with 1% lidocaine with 1:100,000 epinephrine. The surgical site was prepped and draped in the usual sterile manner. With all visible gross tumor completely excised, the borders of the tumor and 2-3 mm margins were excised as a complete layer. Hemostasis was achieved by electrocoagulation. The excised tissue was oriented and divided into 2 sections, chromacoded, and submitted for frozen sections. The patient tolerated the procedure well and without complications. On microscopic evaluation of the frozen sections, no residual tumor was identified on the deep or outer border of the sections. The final size of the defect after complete tumor removal was 1.8 x 1.5 cm, extending to level of subcutaneous tissue. Repair Report (Flap) Patient name: Reinier Ramirez Staff Surgeon: Mason Wong MD PhD Production Expediter(s): same as above Hand Lens Polisher: Dr. Krystina Jackson MD Date: 04/07/2019 Clinical Diagnosis: skin and soft tissue defect status post Mohs micrographic surgery Location/Site: Right lateral eyebrow / right lateral canthus Indication: repair of wound with scientology of anatomy/function Defect size to be repaired: 1.5 X 1.0 cm, 1.8 X 1.5 cm Procedure: transposition flap repair Final flap size: 4 x 3 cm 2 Procedure Details: Due to the size and location of the defect resulting from the complete removal of the tumor, the postoperative risk of hemorrhage, infection, and the possibility of serious deformity from scarring, and in order to restore proper function and prevent loss of function, the defect was closed with an advancement flap. The nature and purpose of the procedure, associated risks, possible consequences, complications andalternative methods of treatment were explained to the patient in detail. An informed consent was obtained. Local anesthesia was obtained with a solution of 1-% lidocaine with 1:100,000 epinephrine. The surgical site was prepped and draped in the usual sterile manner. Any beveled edges of the defect were repaired with a scalpel blade. The flap was created by making incisions along right lateral canthus. The flap and the wound edges were undermined, and hemostasis was obtained with electrocoagulation. The flap was tranposed onto the defect. The skin edges were closed using 4.0 Monocryl, 5.0 Monocryl dermal/subcutaneous sutures and 5-0 fast absorbing gut skin sutures. Final flap size: 4x3 cm2. Estimated blood loss: Minimal. Complications: None. Wound care: Routine. Follow up as needed. The patient was discharged in good condition. Total local anesthesia with 1% lidocaine with 1:100,000 epinephrine used: 6 cc Total local with 0.25% bupivacaine with 1:100,000 epinephrine used: 3 cc Mason Wong MD PhD [facility] and Dermatologic Oncology Section of Dermatology, Department of Surgery documented in this encounter Plan of Treatment Not on filedocumented as of this encounter Visit Diagnoses Diagnosis Squamous cell carcinoma of skin of eyebr ow Squamous cell carcinoma of skin of other and unspecified parts of face Squamous cell cancer of skin of right ey e canthus documented in this encounter Care Teams Continuity Reader Relationship Specialty Start Date End Date Tiera Phillip MD PCP - General Family Medicine 02/09/19 [address] [place] [address] documented as of this encounter
--- OUTSIDE RECORDS SUMMARY | 2022-04-14 13:30 | XMS_ITS | Encounter Summary ---
:1940 Author Organization [facility] Address [facility] [place] [address] Care Team Providers Name Role Phone Tiera Phillip MD Primary Care Provider Encounter Details Date Type Department Care Team Description 02/23/2019 Office Visit Cardiology at [facility] Alexis Shook, Chronic atrial fibrillation; [facility] Left ventricular hypertrophy; Drive [facility] [place] (dyspnea on exertion); [place], [place] Pulmonary cystic fibrosis [address] CARDIOLOGY DEPT. [phone] [place], [place] [address] Social History Tobacco Use Types Packs/Day Years Used Date Never Smoker Smokeless Tobacco: Never Used Alcohol Use Standard Drinks/Week Comments No 0 (1 standard drink = 0.6 oz pure alcoho l) Sex Assigned at Date Recorded Not on file documented as of this encounter Last Filed Vital Signs Vital Sign Reading Time Taken Comments Blood Pressure 110/66 02/23/2019 10:40 AM EDT Pulse 70 02/23/2019 10:40 AM EDT Temperature - - Respiratory Rate - - Oxygen Saturation 96% 02/23/2019 10:40 AM EDT Inhaled Oxygen Concentration - - Weight 122.5 kg (270 lb) 02/23/2019 10:40 AM EDT Height 180.3 cm (5' 11) 02/23/2019 10:40 AM EDT Body Mass Index 37.66 02/23/2019 10:40 AM EDT documented in this encounter Progress Notes Alexis Shook MD - 02/23/2019 11:20 AM EDT Images from the original note were not included. [facility] [place] [address] CARDIOLOGY OUTPATIENT FOLLOW-UP NOTE Reinier Ramirez [id number] PCP: Tiera Phillip MD 02/23/2019 PRIMARY CARE PROVIDER: Tiera Phillip MD PROBLEM LIST: Patient Active Problem List Diagnosis ??? Rupture of right quadriceps tendon ??? Rupture of left quadriceps tendon ??? Primary osteoarthritis of both knees ??? Chronic pain of both knees ??? Possible ASCVD (arteriosclerotic cardiovascular disease) ?? Inferior wall motion abnormalities on echo's at [facility] 02/15/14 and 03/30/17 ?? Nuclear stress test at [facility] 10/26/16 showing normal perfusion ?? Cardia Edmund March 30, 2017 showing normal left ventricular size, ejection fraction 60%, andwall motion abnormalities with inferior hypokinesia. ?? Regadenoson sestamibi [facility] April 22, 2017 showing normal perfusion; normal wall thickening ??? MICK (obstructive sleep apnea) ??? Morbid obesity ??? Bilateral leg weakness ??? Chronic atrial fibrillation ?? Diagnosed 11/2013, without symptoms during visit with non emergency services ambulance driver, ?? Asymptomatic ?? [id number] score = 2 (age and HTN) ??? Hypertension ??? Diverticulosis ??? Left ventricular hypertrophy -TTE 02/17/2014 shows eccentric left ventricular enlargement (moderate LV dilation with LVEDD 6.3cm, normal LVEF 55%, no concentric LVH) ??? AK (actinic keratosis) ??? History of melanoma MEDICATIONS: Current Outpatient Medications Medication Sig Dispense Refill ??? triamcinolone (KENALOG) 0.1 % Cream Apply to affected areas on underarms 2x/day for 2 weeks thenstop 45 g 0 ??? losartan (COZAAR) 25 mg Tablet Take 1 tablet by mouth daily. 90 tablet 3 ??? furosemide (LASIX) 40 mg Tablet Take 10 mg by mouth daily. ??? atenolol (TENORMIN) 25 mg Tablet Take 1 tablet by mouth daily. 90 tablet 3 ??? simvastatin (ZOCOR) 10 mg Tablet Take 1 tablet by mouth nightly. 90 tablet 3 ??? rivaroxaban (XARELTO) 20 mg Tablet Take 1 tablet by mouth daily. 90 tablet 3 ??? finasteride (PROSCAR) 5 mg Tablet Take 5 mg by mouth daily. ??? potassium chloride (KLOR-CON) 20 mEq Packet Take 20 mEq by mouth daily. No current facility-administered medications for this visit. SUBJECTIVE: This 78-year-old man comes for follow-up visit. He has suspected coronary artery diseaseon the basis of some wall motion abnormalities on an echocardiogram but has never undergone formal heart catheterization. He has other medical problems including obstructive sleep apnea, obesity, and chronic atrial fibrillation. He has a [id number] score of 3 (2 points for age and 1.4 hypertension). He is managed with Xarelto and atenolol. He comes for routine visit today and indicates that he is doing okay. He has had a cough for a few months which is dry and somewhat incessant. He has been evaluated with a chest x-ray, CT scan of the chest, and pulmonary function test. Reportedly his CAT scan showed some mild pulmonary fibrosis. Formal outpatient pulmonary evaluation is scheduled. He says that he is stable from a cardiac perspective. He reports no chest pain, palpitations, or syncope. ROS: CardioVascular Pre Appointment Symptom Review 02/23/2019 Angina (chest discomfort) Frequency: None Shortness of breath: Only with moderate or strenous activity Palpitations (skipped beats): No Leg swelling: Yes Dizziness/light headedness: No Loss of consciousness: No Difficulty lying flat (because of breathing): No Chills: No Fatigue: No Fever: No Unintended weight change: No Nosebleeds: No Difficulty swallowing: No Visual disturbances: No Frequent cough: No Wheezing: Yes Snoring: Yes Abdominal pain: No Diarrhea: No Blood in bowel movement: No Black, tarry bowel movement: No Nausea/vomiting: No Heat/cold intolerance: No Problems urinating: Yes Joint pains: Yes Muscle pain: Yes Rash: No Weakness/numbness: No Speech problems: No Easy bruising/bleeding: No Depression: No Anxiety: No Poor sleep: No OBJECTIVE: Vital Signs: BP 110/66 Pulse 70 Ht 180.3 cm (5' 11) Wt 122.5 kg (270 lb) SpO2 96% BMI 37.66 kg/m?? Physical Exam: On exam he appeared in good health and spirits. Vital signs as documented. Skin warm and dry and without overt rashes. Neck without JVD. Lungs clear. Heart exam notable for regular rhythm, normal sounds and absence of murmurs, rubs or gallops. Abdomen unremarkable and without evidence of organomegally, masses, or abdominal aortic enlargement. Extremities non-edematous. Twelve-lead EKG: This revealed atrial fibrillation with a low voltage QRS. He had no clear evidence of prior heart attacks. ASSESSMENT: He seems fairly stable from a cardiac perspective. He is tolerating anticoagulation without problems. His bigger issue is his dyspnea and the possibility of pulmonary fibrosis which is under evaluation. Regarding his cough, his PCP has recommended that he try discontinuing the losartan. Heis on a very low dose and this is probably not impacting his blood pressure particularly so I encouraged him to follow through on this recommendation. PLAN: 1. Reasonable to discontinue losartan as a trial to see if this helps his cough 2. Outpatient pulmonary evaluation as scheduled 3. Routine cardiology follow-up in 1 year documented in this encounter Plan of Treatment Not on filedocumented as of this encounter Procedures Procedure Name Priority Date/Time Associated Diagnosis Comme nts EKG 12-LEAD Routine 02/23/2019 10:45 AM Chronic atrial Result s for this EDT fibrillation procedure are in Left ventricular the results hypertrophy section. documented in this encounter Results EKG 12 Lead (02/23/2019 10:45 AM EDT) Component Value Ref Range Test Analysis Performed Pathologis t Method Time At Signature Ventricular rate 70 BPM MUSE SYSTEM Atrial Rate 60 BPM MUSE SYSTEM QRS Duration 80 ms MUSE SYSTEM Q-T Interval 404 ms MUSE SYSTEM QTC Calculated 436 ms MUSE SYSTEM (Bezet) Calculated R Dysart -29 degrees MUSE SYSTEM Calculated T Dysart -6 degrees MUSE SYSTEM INTERPRETATION Atrial fibrillation MUSE SYSTEM Low voltage QRS Inferior infarct (cited on or before 30-MAR-2017) Abnormal ECG When compared with ECG of 23-FEB-2018 09:57, No significant change was found Confirmed by MD Shook Jon ([id number]) on 02/23/2019 4:26:37 PM Specimen Anatomical Collection Method Collection Time Receive d Time (Source) Location / / Volume Laterality 02/23/2019 10:45 02/23/2019 4:26 AM EDT PM EDT Alexis Shook MD ECG ORDERABLES Performing Organization Address City/State/ZIP Code Phon e Number MUSE SYSTEM documented in this encounter Visit Diagnoses Diagnosis Chronic atrial fibrillation Atrial fibrillation Left ventricular hypertrophy Cardiomegaly [place] (dyspnea on exertion) Other dyspnea and respiratory abnormalit y 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
--- OUTSIDE RECORDS SUMMARY | 2022-04-14 13:30 | XMS_ITS | Encounter Summary ---
:1940 Author Organization [facility] Address [address] [place] [address] Care Team Providers Name Role Phone Tiera Phillip MD Primary Care Provider Reason for Visit Reason Comments Skin Cancer Examination Encounter Details Date Type Department Care Team Description 02/12/2021 Office Visit Dermatology at [facility] tinic keratoses; Kelly Bridges MD Seborrheic keratoses; [address] [facility] [place] [place] History of melanoma; [place] [address] History of nonmelanoma skin cancer [phone] [facility] [place], [place] [address] Social History Tobacco Use Types Packs/Day Years Used Date Never Smoker Smokeless Tobacco: Never Used Alcohol Use Standard Drinks/Week Comments No 0 (1 standard drink = 0.6 oz pure alcoho l) Sex Assigned at Date Recorded Not on file documented as of this encounter Progress Notes Blanca Meek MD - 02/12/2021 11:30 AM EDT Images from the original note were not included. DEPARTMENT OF DERMATOLOGY Medical Dermatology Clinic Provider: BLANCA MEEK MD Preferred name Reinier Preferred contact method for results [x] Phone (cell) [] MyD-H [] Letter Permission to leave detailed message Yes Permission to discuss care with Alexandra Past Medical History Date, location, treatment Melanoma 08/2010 (outside path): Right forearm, melanoma (excision, negative SLNB) DN N SCC 09/09/19: Right lateral canthus, SCC (Mohs) 03/27/19: Right lateral eyebrow, SCC (Mohs) BCC 07/04/12: Right clavicle, BCC (ED&C) 04/14/16: Left preauricular, nBCC (ED&C) 02/09/17: Left nasal ala, nBCC (Mohs) AK Numerous, LN2 UV exposure & protection N Other relevant past medical history 02/17/12: Right forearm, HAK (LN2) ?? Xerosis Family History Details Melanoma N NMSC N Other relevant family history N Social History - Served 26 years in [employer] - - [place] in [place] and [place] Pre-Procedure Screening Details Allergy to lidocaine, epinephrine, Dermabond, chlorhexidine, or adhesives: N Bleeding disorder or blood thinners: Yes, Xarelto Pacemaker, defibrillator, deep brain stimulator N History of Present Illness: Reinier Ramirez is a 80 y.o. established patient who returns to the clinic today for a full skin examination with the following concerns: - Lesions on the chest that noticed in the past couple of months. The lesions are asymptomatic. Last FSE: 02/12/2020 Last visit at [facility] Derm: 02/12/2020 Last visit with this provider: 02/12/2020 Medications: Reviewed in eD-H Allergies: Reviewed in eD-H Skin Examination: Waist-up skin examination: Patient was asked to disrobe to the level of their comfort. Patient elected to remain clothed below the waist. Examination of the scalp, hair, face, ears, neck, back, chest, abdomen, and upper extremities was normal with the exception of the findings below. Assessment/Plan: A. Actinic Keratoses, some Hypertrophic - Ill-defined gritty papules on the left dorsal hand x 3, left forearm x 3, right forearm x 2, right dorsal hand x 2, chest x 1, right cheek x 2, right alevism x 3, left mid helical rim x 1. - Explained premalignant potential of these lesions. - Discussed treatment with cryotherapy. Patient elects to proceed with cryotherapy today. - Instructed patient to return to clinic for re-evaluation if lesion(s) does not resolve as expectedwith this treatment. Procedure: Destruction of lesion(s) with cryotherapy (LN2). Location(s): As noted above. Number: [id number] Discussed procedure and expectations, including risks and benefits. Verbal consent obtained. Treatedwith LN2. There were no complications; Patient tolerated the procedure well. Post-procedure expectations and wound care reviewed. B. Seborrheic Keratoses - Stuck on, waxy papules on the trunk and upper extremities. - Discussed benign nature of lesions and provided reassurance. No treatment necessary at this time. C. History of Melanoma and NMSC - Well-healed scars per skin history. - No evidence of recurrence; will continue to monitor. Other: - N/A RTC: 1 year for waist-up exam [] Note routed to typing secretary [x] Recall placed in scheduling system [] Appointment scheduled before exiting Vera Wu and Paradise Brar CMA have performed the documentation for this encounter in the presence of and acting as scribes for BLANCA EMEK MD. I performed the above scribed service and agree with the accuracy of the documentation in this encounter. Reviewed and signed by: BLANCA MEEK MD Dermatology [facility] documented in this encounter Plan of Treatment Not on filedocumented as of this encounter Visit Diagnoses Diagnosis Actinic keratoses Actinic keratosis Seborrheic keratoses History of melanoma Personal history of malignant melanoma o f skin History of nonmelanoma skin cancer Personal history of other malignant neop lasm of skin documented in this encounter Care Teams Tax Agent Relationship Specialty Start Date End Date Tiera Phillip MD PCP - General Family Medicine 02/09/19 [address] [place] [address] documented as of this encounter
--- OUTSIDE RECORDS SUMMARY | 2022-04-14 13:30 | XMS_ITS | Encounter Summary ---
:1940 Author Organization [facility] [place] [address] Care Team Providers Name Role Phone Tiera Phillip MD Primary Care Provider Reason for Visit Reason Onset Date Comments Results 04/21/2019 CT & PFT Encounter Details Date Type Department Care Team Description 04/21/2019 Telephone Pulmonology at [facility] Stephen, Hipolito (CT & PFT) [facility] [place] [address] RN [phone] Social History Tobacco Use Types Packs/Day Years Used Date Never Smoker Smokeless Tobacco: Never Used Alcohol Use Standard Drinks/Week Comments No 0 (1 standard drink = 0.6 oz pure alcoho l) Sex Assigned at Date Recorded Not on file documented as of this encounter Miscellaneous Notes Telephone Encounter - Roger Mitchell RN - 04/24/2019 3:30 PM EDT Rec'd secondary call from patient and , seeking to get call back with results. They would also like to discuss if they should consult with another gullet slitter when they are in [place], and what should be done in the patient's plan of care. They would also like to know if there is anything that could be done about his cough. Telephone Encounter - Roger Mitchell RN - 04/21/2019 5:34 PM EDT Rec'd call from patient, seeking to get results from Dr. Griffith of PFT and CT dated 04/17/2019 documented in this encounter Plan of Treatment Not on filedocumented as of this encounter Visit Diagnoses Not on filedocumented in this encounter Care Teams Lock Corner Machine Operator Relationship Specialty Start Date End Date Tiera Phillip MD PCP - General Family Medicine 02/09/[address] [facility] [address] [place] [address] documented as of this encounter
--- OUTSIDE RECORDS SUMMARY | 2022-04-14 13:30 | XMS_ITS | Encounter Summary ---
:1940 Author Organization [facility] [place] [address] Care Team Providers Name Role Phone Tiera Phillip MD Primary Care Provider Reason for Visit Reason Comments Medication Refill Encounter Details Date Type Department Care Team Description 04/18/2019 Refill Cardiology at [facility] Alexis Shook MD Medication Refill [facility] [place] [place] [address] CARDIOLOGY DEPT. [phone] [place], [place] [address] (Wo rk) Social History Tobacco Use Types Packs/Day Years Used Date Never Smoker Smokeless Tobacco: Never Used Alcohol Use Standard Drinks/Week Comments No 0 (1 standard drink = 0.6 oz pure alcoho l) Sex Assigned at Date Recorded Not on file documented as of this encounter Plan of Treatment Not on filedocumented as of this encounter Visit Diagnoses Diagnosis Chronic atrial fibrillation Atrial fibrillation Essential hypertension Unspecified essential hypertension Left ventricular hypertrophy Cardiomegaly Possible ASCVD (arteriosclerotic cardiov ascular disease) Unspecified cardiovascular disease documented in this encounter Care Teams Java Software Developer Relationship Specialty Start Date End Date Tiera Phillip MD PCP - General Family Medicine 02/09/19 [address] [place], [place] [id number] documented as of this encounter
--- OUTSIDE RECORDS SUMMARY | 2022-04-14 13:30 | XMS_ITS | Encounter Summary ---
:1940 Author Organization [facility] [place] [address] Care Team Providers Name Role Phone Tiera Phillip MD Primary Care Provider Reason for Visit Reason Comments Follow-up Focused Exam Encounter Details Date Type Department Care Team Description 03/27[facility]2019 [facility] of uncertain Kelly TMD behavior [address] [place] [address] [facility] [place], [place] [address] Social History Tobacco Use Types Packs/Day Years Used Date Never Smoker Smokeless Tobacco: Never Used Alcohol Use Standard Drinks/Week Comments No 0 (1 standard drink = 0.6 oz pure alcoho l) Sex Assigned at Date Recorded Not on file documented as of this encounter Patient Instructions Patient InstructionsElena Everett LPN - 03/27/2019 11:30 AM EDT Treatment and Wound Care Instructions Your treatment today: You have had a shave biopsy of your skin, which is a removal of tissue for examination under a microscope. This wound will heal without stitches. Allow 3-6 weeks for the wound to heal. If bleeding occurs, hold firm pressure against the wound for 15 minutes. If bleeding continues, calls the office or go to your local emergency room. Please allow 1-2 weeks for the biopsy results to return. Your physician or nurse will contact you with the results by phone or letter; follow-up will be discussed at that time. Wound Care Instructions: You will need to keep the dressing placed over the wound dry and intact for 24 hours. Afterwards, perform the following wound care daily: ?? Wash your hands before changing the dressing. ?? Remove the bandage and clean the area with mild soap and water, then gently pat the area dry. ?? Apply a small amount of Vaseline to the area, then cover the wound with a band-aid. Change your dressing daily until the wound is fully healed. ?? A small amount of yellow drainage is part of normal healing. The area might appear as a small depression with redness around the edge of the wound. This is normal. ?? Please contact the office you you notice any of the following signs of infection: increased tenderness, pain, drainage, or redness that becomes hot or hard around the wound. If you have further questions or concerns, please call the office at [phone]. If it is after 5PM, or a holiday or weekend, please call [phone] and ask for the Water Manager on-call. documented in this encounter Progress Notes Elena Everett LPN - 03/27/2019 11:30 AM EDT Images from the original note were not included. DERMATOLOGY ESTABLISHED PATIENT CLINIC NOTE Date of service: 03/27/2019 Reinier Ramirez : 1940 Provider: Sakshi Meek MD Chief Complaint Patient presents with ??? Follow-up Focused Exam SKIN HISTORY: 08/2010 (outside path) Right forearm, excision: Melanoma - s/p WLE, negative SNLB ?? 02/17/2012 Right forearm, shave biopsy: Hyperplastic actinic keratosis with dermal fibrosis. Comment: The dermal changes may represent prior treatment effect. ?? 07/04/2012 Right clavicle, shave biopsy: BCC - s/p ED&C 07/22/12 ?? 04/14/2016 Left preauricular: BCC, nodular type, transected - s/p ED&C 04/28/16 ?? 02/09/2017 Left nasal ala, shave biopsy: BCC, nodular and infiltrative (micronodular) type, present at the peripheral edge and base of the specimen. - s/p Mohs 04/27/17 ? Other: - Actinic keratoses - s/p LN2 - Seborrheic keratoses - Xerosis - Kelly angiomas - Nevi ?? Family Skin History: Skin cancer: No known Skin disease: No known ?? 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 in [place], [place] Allergy to Lidocaine or Epinephrine? No Pacemaker or Defibrillator? No On Xarelto Preferred name: Reinier Preferred method of contact for results: Cell Phone OK to leave detailed message including biopsy results?: Yes Are there any other people with whom we may discuss your care with? , Alexandra Preferred Pharmacy? [facility] Reinier Ramirez is a 78 y.o. year old male, established patient last seen by me on 02/07/19. Here today for a follow up of a hypertrophic actinic keratosis that was treated with cryotherapy, located onthe right lateral eyelid. Patient reports the area is still present. Denies any itching, bleeding orpain. MEDS: Current Outpatient Medications Medication Sig Dispense Refill ??? triamcinolone (KENALOG) 0.1 % Cream Apply to affected areas on underarms 2x/day for 2 weeks thenstop 45 g 0 ??? losartan (COZAAR) 25 mg Tablet Take 1 tablet by mouth daily. 90 tablet 3 ??? potassium chloride (KLOR-CON) 20 mEq Packet Take 20 mEq by mouth daily. ??? furosemide (LASIX) 40 mg Tablet Take [...] Tablet Take 5 mg by mouth daily. No current facility-administered medications for this visit. ADR: Allergies Allergen Reactions ??? Fqpkbwd-Fkr-Uno Reductase Inhibitors Swelling in joints ROS General: feeling well Skin: denies other skin complaints EXAM General: NAD, pleasant, cooperative Skin: a focused exam was performed to the right lateral eyebrow and the right lateral canthus. Significant skin findings: A. Right Lateral Eyebrow: 8 mm flesh colored papule, dome shaped with central crust [Figure 1, Specimen A,] B. Right Lateral Canthus: 8 mm flesh colored papule, dome shaped with central crust [Figure 1, Specimen B] Figure 1. A Right Lateral Eyebrow, B Right lateral canthus Photo(s) taken and charted with patient's verbal consent. ASSESSMENT/PLAN: A. SCC (KA type) vs BCC - Combined decision to perform a skin shave biopsy today. Procedure: Skin biopsy by shave technique Location: Right Lateral Eyebrow Time: 12:00PM Discussed indications for procedure and expectations including risks and benefits. Verbal consent obtained. Skin prep with alcohol. Local anesthesia with 1% xylocaine, 1/100,000 epinephrine. A sample of the lesion was removed by shave technique to the level of the dermis and submitted to Pathology. Hemostasis obtained (AlCl and/or electrocautery). There were no complications; the pt. tolerated the procedure well. The wound was dressed. Post-procedure expectations, wound care and activity restrictions were reviewed. Follow-up based on pathology results. B. SCC (KA type) vs BCC - Combined decision to perform a skin shave biopsy today. Procedure: Skin biopsy by shave technique Location: Right Lateral Canthus Time: 12:00PM Discussed indications for procedure and expectations including risks and benefits. Verbal consent obtained. Skin prep with alcohol. Local anesthesia with 1% xylocaine, 1/100,000 epinephrine. A sample of the lesion was removed by shave technique to the level of the dermis and submitted to Pathology. Hemostasis obtained (AlCl and/or electrocautery). There were no complications; the pt. tolerated the procedure well. The wound was dressed. Post-procedure expectations, wound care and activity restrictions were reviewed. Follow-up based on pathology results. Follow up: as scheduled for a FSE on 02/12/2020, sooner if needed. Instructed to call with questionsor concerns. I am documenting this encounter acting as the scribe for and in the presence of Dr. Meek: ELENA EVERETT LPN I performed the above scribed service and agree with the accuracy of the documentation in this encounter. Sakshi Meek MD Claims Service Representative of Dermatology, Department of Surgery [facility] Sakshi Meek MD - 03/27/2019 11:30 AM EDT Li, Both biopsies show SCCs, recommend Mohs for both. Please notify patient and refer for Mohs. Elena Everett LPN - 03/27/2019 11:30 AM EDT Spoke with patient regarding his recent biopsy results from the right lateral eyebrow, and the rightlateral canthus. Per Dr. Meek: Both biopsies show SCCs, recommend Mohs for both. Patient verbalized understanding, reports he has had this procedure in the past, and is in agreement with this plan. He reports he is healing well from both biopsies, and denies any questions or concerns at this time. He does mentions he will be leaving town mid April, and would like this procedure done as soon as possible. Message routed to to schedule Mohs. ELENA EVERETT LPN Elena Everett LPN - 03/27/2019 11:30 AM EDT Mohs scheduled with Dr. Bal on 04/07/19. Elena Everett LPN - 03/27/2019 11:30 AM EDT Mohs performed to both SCC (right lateral eyebrow, and the right lateral canthus) by Dr. Bal on 04/07/19. ELENA EVERETT LPN documented in this encounter Plan of Treatment Not on filedocumented as of this encounter Procedures Procedure Name Priority Date/Time Associated Diagnosis Comme nts SPECIMEN TO Routine 03/27/2019 1:16 PM Neoplasm of Results f or this PATHOLOGY EDT uncertain behavior procedure are in the results section. SURGICAL PATHOLOGY Routine 03/27/2019 12:00 PM Re sults for this REPORT EDT procedure are i n the results section. documented in this encounter Results Specimen to Pathology (03/27/2019 1:16 PM EDT) Specimen Anatomical Collection Method Collection Time Receive d Time (Source) Location / / Volume Laterality AP Specimen 03/27/2019 1:16 PM 9 5:08 EDT PM EDT Narrative [facility] - 03/27/2019 5:08 PM EDT Specimen requisition ordered. ??Separate Pathology report to follow Resulting Agency Comment Spec In Lab Sakshi Meek MD PATHOLOGY/CYTOLOGY ORDERABLE S Performing Organization Address City/State/[place] [address] Surgical Pathology Report (03/27/2019 12:00 PM EDT) Component Value Ref Test Analysis Performed At [facility] gist Range Method Time Signature Surgical [id number] ? Location: [facility] Report The signing pathologist has (i) examined the relevant preparation(s) for the [facility] specimen(s) and (ii) rendered or confirmed the diagnosis(es) . HOSPITAL LAB[facility]ORY . ?Surgic al Pathology DIAGNOSIS A. Skin, right lateral eyebrow, shave biopsy: - Invasive squamous cell car cinoma, well-differentiated, present at the peripheral and deep specimen edges B. Skin, right lateral canthus, shave biopsy: - ??Invasive squamous cell c arcinoma, moderately differentiated, present at the peripheral and deep specimen edges Electronically signed by: ??Heidi SAUCEDO, Reinier Catalan Verified: ??03/30/2019 ?Dermatopathologist Performed at: ??-[facility]. [facility], [place], [place] CLINICAL INFORMATION Specimen Submitted: A - Skin, right lateral eyebrow, shave biopsy (1) B - Skin, right lateral canthus, shave biopsy (1) Clinical History and Diagnosis: 8mm flesh colored papule, do me-shaped with central crust; SCC (KA type) versus BCC x2 SPECIMEN PROCESSING A - Labeled/Fixative: A right lateral eyebrow, formalin. Quantity/Size: ??Single, 1.0 x 0.6 x 0.2 cm. Tissue Description: Shave of a light pink to centrally stallworth-white and crusted papule. Sections/Processing: Inked, quadrisected and entirely submitted in 1 cassette lab eled A1. B - Labeled/Fixative: B right lateral canthus, formalin. Quantity/Size: ??Single, 0.7 x 0.6 x 0.2 cm. Tissue Description: Shave of a slightly firm, stallworth-white to centrally stallworth-brown and crusted papule. Sections/Processing: Inked, trisected and entirely submitted in 1 cassette labele d B1. ??apb Specimen (Source) Anatomical Collection Method Collection Time Re ceived Time Location / / Volume Laterality 03/27/2019 12:00 PM EDT Sakshi Meek MD PATHOLOGY/CYTOLOGY ORDERABLE S Performing Organization Address City/State/[place] [address] [facility] documented in this encounter Visit Diagnoses Diagnosis Neoplasm of uncertain behavior Neoplasm of uncertain behavior, site uns pecified documented in this encounter Care Teams Senior Service Aide Relationship Specialty Start Date End Date Tiera Phillip MD PCP - General Family Medicine 02/09/19 [address] [place] [address] documented as of this encounter
--- OUTSIDE RECORDS SUMMARY | 2022-04-14 13:30 | XMS_ITS | Encounter Summary ---
:1940 [address] Organization [facility] [place] [address] Care Team Providers Name Role Phone Tiera Phillip MD Primary Care Provider Reason for Referral Diagnostic Test (Routine) - Closed Specialty Diagnoses / Procedures Referred By Contact Refer red To Contact Radiology Diagnoses COTTON (dyspnea on exertion) Jeevan Griffith MD [facility] Rad Ct Scan Procedures CT Chest wo Contrast (Generic) [facility] [place] [address] [place] [address] Referral ID Status Reason Start Date Expiration Date Visits V isits Requested Authorized [id number] Closed Specialty 04/14/2019 04/13/2020 1 1 Service Requested Reason for Visit Reason Comments Referral Cough Consultation (Routine) - Specialty Diagnoses / Procedures Referred By Contact Refer red To Contact Pulmonology Diagnoses Cough Chronic diastolic (congestive) heart failure CHRONIC COUGH, DIASTOLIC HEART FAILURE Tiera Phillip MD [facility] Pulmonology [address] [place] [address] [id number] Referral ID Status Reason Start Date Expiration Date Visits V isits Requested Authorized [id number] Consult, Test 02/06/2019 05/09/2019 6 [facility] PCP Updated and/or Approved Encounter Details Date Type Department Care Team Description 04/14/2019 Office Visit Pulmonology at [facility] Jeevan Griffith DOE (dyspnea on [facility] MD exertion) [place] [address] PULMONARY MEDICI [place], [place] [address] Social History Tobacco Use Types [...] Mass Index 37.66 04/14/2019 10:41 AM EDT documented in this encounter Progress Notes Jeevan Griffith MD - 04/14/2019 10:00 AM EDT Images from the original note were not included. SECTION OF PULMONARY AND CRITICAL CARE?? Pulmonary [place] [address] Outpatient New Consultation Consulted by Tiera Phillip MD to evaluate this patient for chronic cough and dyspnea. I have personally interviewed and examined the patient on 04/27/2019, and reviewed the patient's radiographic studies and laboratory data. HPI: In brief, Reinier Ramirez is a 79 y.o. male with hx of cough, occasionally productive (usually after eating), also has coughing spells in the morning (dry). Sleeps in a room with a lot of mold (?)for about a year. Started on Lasix about a year ago for dyspnea, which helped somewhat. Carries diagnosis of diastolic heart failure. Hx of paroxysmal atrial fib, on anticoagulation. No hx of heartburn. He had a chest CT in [facility], the images of which are not available but the report notes mildpulmonary fibrosis. He had pulmonary function studies as well the interpretation of which was mild restriction (primary data not available). He song in [place], and underwent a cardiac evaluation there, with an unrevealing stress test, and echocardiogram showing borderline PAH as well as LVH and diastolic dysfunction. He had been referred for cardiac rehab in [place] but it is not clear that he completed this. He has never smoked. 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 No asbestosis exposure. No silica exposure. No birds. No constitutional symptoms. PAST MEDICAL HISTORY: Patient Active Problem List Diagnosis Code ??? History of melanoma Z85.820 ??? AK (actinic keratosis) L57.0 ??? Chronic atrial fibrillation I48.2 ??? Hypertension I10 ??? Diverticulosis K57.90 ??? Left ventricular hypertrophy I51.7 ??? MICK (obstructive sleep apnea) G47.33 ??? Morbid obesity E66.01 ??? Bilateral leg weakness R29.898 ??? Possible ASCVD (arteriosclerotic cardiovascular disease) I25.10 ??? Rupture of right quadriceps tendon S76.111A ??? Rupture of left quadriceps tendon S76.112A ??? Primary osteoarthritis of both knees M17.0 ??? Chronic pain of both knees M25.561, M25.562, G89.29 ??? (HFpEF) heart failure with preserved ejection fraction I50.30 ??? Chronic cough R05 ??? Anemia of chronic renal failure, stage 3 (moderate) N18.3, D63.1 Past Surgical History: Procedure Laterality Date ??? CHOLECYSTECTOMY ??? REVISION COLOSTOMY Previously reversed, 3 months after placement MEDICATIONS: Current Outpatient Medications Medication Sig Dispense Refill ??? triamcinolone (KENALOG) 0.1 % Cream Apply to affected areas on underarms 2x/day for 2 weeks thenstop 45 g 0 ??? furosemide (LASIX) 40 mg Tablet Take 10 mg by mouth daily. ??? finasteride (PROSCAR) 5 mg Tablet Take 5 mg by mouth daily. ??? atenolol (TENORMIN) 25 mg Tablet TAKE 1 TABLET DAILY 90 tablet 3 ??? simvastatin (ZOCOR) 10 mg Tablet TAKE 1 TABLET NIGHTLY 90 tablet 3 ??? XARELTO 20 mg Tablet TAKE 1 TABLET DAILY 90 tablet 3 ??? potassium chloride (KLOR-CON) 20 mEq Packet Take 20 mEq by mouth daily. No current facility-administered medications for this visit. ALLERGIES: Xycfvzq-gth-dlw reductase inhibitors FAMILY HISTORY: No FH of pulmonary fibrosis. Otherwise noncontributory. SOCIAL HISTORY: Social History Socioeconomic History ??? Marital status: Single Spouse name: Not on file ??? Number of children: Not on file ??? Years of education: Not on file ??? Highest education level: Not on file Occupational History ??? 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 Financial resource strain: Not on file ??? Food insecurity: Worry: Not on file Inability: Not on file ??? Transportation needs: Medical: Not on file Non-medical: Not on file Tobacco Use ??? Smoking status: Never Smoker ??? Smokeless tobacco: Never Used Substance and Sexual Activity ??? Alcohol use: No ??? Drug use: No ??? Sexual activity: Not on file Lifestyle ??? Physical activity: Days per week: Not on file Minutes per session: Not on file ??? Stress: Not on file Relationships ??? Social connections: Talks on phone: Not on file Gets together: Not on file Attends taoist service: Not on file Active member of club or organization: Not on file Attends meetings of clubs or organizations: Not on file Relationship status: Not on file ??? Intimate partner violence: Fear of current or ex partner: Not on file Emotionally abused: Not on file Physically abused: Not on file Forced sexual activity: Not on file Other Topics Concern ??? 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 Lives with his long-time girlfriend. Splits his time between [place], [place] and [place]. No pets. Review of Systems: Per HPI. Otherwise negative x 12. PHYSICAL EXAM Last value Range last 24 hrs Temperature Temp: -- Heart Rate Heart Rate: 76 Heart Rate: -- Blood Pressure BP: 109/44 BP: -- Respiratory Rate Resp: 24 Resp: -- SpO2 SpO2: 96 % SpO2: -- Overweight 79 y.o. male in wheelchair in [facility]. HEENT-NC/AT; unremarkable Neck-supple without masses or, nodes Chest- faint rales at bases bilaterally Heart-irreg rate and rhythm with faint systolic flow murmer Abdomen-benign without organomegaly or tenderness Extremities-no cyanosis, clubbing; 2-3+ edema Skin-multiple AK on both arms Musculoskeletal-pain on active movement of knees Neurologic-Nonfocal Lymphatics-unremarkable I have personally reviewed the PFTs, and my interpretation is as follows: FVC of 2.64 L (71% of predicted), FEV1 of 2.12 (76% of predicted), FEV1/FVC of 80%. Diffusing capacity of 73% of predicted. Normal inspiratory and expiratory mouth pressures. These studies show very slight decrement in his vital capacity consistent with mild restriction, with diffusing capacity within normal limits. No evidence of respiratory muscle weakness. I have personally reviewed the radiographic studies and my interpretation is as follows: CT of chestreveals cardiomegaly and minimal lower lobe dependent atelectasis without any evidence of reticulation or other signs of fibrosis. Lab results notable for pro-BNP of 1671. IMPRESSION: In summary, this is a 79 y.o. male with dyspnea and cough of uncertain etiology, though the cough is usually nonproductive except after he eats, suggesting the possibility of occult aspiration. This might be worthy of a modified barium swallow, but certainly not urgently. His very mild restriction on pulmonary function is likely due to his body habitus as there is no evidence on high-resolution CT scan of any interstitial/fibrotic lung disease. 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 Routine blood work shows his creatinine to be elevated but unchanged since 2013, and otherwise unremarkable except aimee elevated pro-BNP. I did suggest that the statistical likelihood of having silent reflux is high, and he might benefit empirically from elevation of the head of his bed (slightly, such as a brick under each head post). He may have an element of atypical bronchospasm but I did not immediately suggestan empiric bronchodilator since I would probably be inclined to see whether his symptoms improve with slightly more diuresis. I do not know what exactly to make of the moldy room in which he sleeps (in [place]) but if this were playing any role I would expect his symptoms to improve significantly when he goes to [place], in the next month. I would gladly see him back when he returns (and urged that he get medical records from his doctors in [place] for review in the spring). Greater than 50 min of this 60 minute visit was spent in face to face discussion with the patient and his regarding the curious and complex nature of the problems described above. documented in this encounter Plan of Treatment Not on filedocumented as of this encounter Results Pulmonary Function Testing (04/17/2019 11:59 PM EDT) Narrative Omar Egan MD - 04/17/2019 11:5 9 PM EDT Omar Egan MD ? 04/18/2019 ??4:00 PM A. SPIROMETRY Reveals a mild (79-60%) reduction in the FVC and a normal FEV1/FVC ratio. B. DIFFUSING CAPACITY: Is within normal limits. C. PULSE OXIMETRY: Resting oxyhemoglobin saturation is norm al. Resting oximetry was assessed while the patient was breathing room air. D. FINAL IMPRESSION: The normal DLCO in conjunction with RVD suggests that a ??Process not involving the lung parenchyma(chest wall/pleural disease or muscle weakness) is present. Jeevan Holt MD PFT ORDERABLES CT Chest wo Contrast (Generic) (04/17/2019 12:26 PM EDT) Anatomical Region Laterality Modality Chest Computed Tomography Specimen (Source) Anatomical Location Collection Method / Collectio n Time Received Time / Laterality Volume Impressions 04/17/2019 3:41 PM EDT 1. ??No evidence of fibrosing interstitial lung disorder or other significant pulmonary findings. 2. ??Cardiomegaly, similar to prior ches t radiograph. 3. ??Severe coronary artery calcificatio n. 4. ??Mild cortical thinning of the image d portions of the kidneys. Preliminary report signed by: Brandy Isaacs at 04/17/2019 3:29 PM I have personally reviewed the image(s) and the residents interpretation and agree with the findings, Marybel hoff 04/17/2019 3:41 PM Thank you for letting us participate in the care of this patient. For questions regarding this report, please contact e number below. ? Electronically signed by: Marybel Joiner [facility] ([phone]), at 04/17/2019 3:41 PM Narrative 04/17/2019 3:41 PM EDT EXAMINATION: CT CHEST WO CONTRAST (GENERIC) CLINICAL HISTORY: Cough, dyspnea, ?fibro tic disease TECHNIQUE: 3.75mm thick axial contiguous sections were obtained through the chest via helical acquisition without in travenous contrast administration. Thin-section reconstructions as well as coronal and sagittal reformatted images were generated. COMPARISON: Chest radiograph dated 2017 FINDINGS: Pulmonary parenchyma: Minimal bibasilar dependent atelectasis. No coarse reticulation, subpleural groundglass opa city, or cystic/honeycomb change. Airways: The central airways are patent. Pleura: No pleural effusion. Lymph nodes:No enlarged lymph nodes. Heart, pericardium, and great vessels: T he heart is enlarged, similar to prior chest radiograph. Severe coronary artery calcifications. No thoracic aortic aneurysm. No pericardial effusion. Other mediastinal structures: No signifi cant findings. Lower neck: No significant findings. Upper abdomen: Small hiatal hernia. Stat us post cholecystectomy. Bilateral renal cortical thinning of the imaged portions of the kidney. Body wall soft tissues: No significant f indings. Skeletal structures: No significant find ings. Procedure Note Marybel Joiner MD - 04/17/2019Formatt ing of this note might be different from the original. EXAMINATION: CT CHEST WO CONTRAST (GENER IC) CLINICAL HISTORY: Cough, dyspnea, ?fibro tic disease TECHNIQUE: 3.75mm thick axial contiguous sections were obtained through the chest via helical acquisition without in travenous contrast administration. Thin-section reconstructions as well as coronal and sagittal reformatted images were generated. COMPARISON: Chest radiograph dated 2017 FINDINGS: Pulmonary parenchyma: Minimal bibasilar dependent atelectasis. No coarse reticulation, subpleural groundglass opa city, or cystic/honeycomb change. Airways: The central airways are patent. Pleura: No pleural effusion. Lymph nodes:No enlarged lymph nodes. Heart, pericardium, and great vessels: T he heart is enlarged, similar to prior chest radiograph. Severe coronary artery calcifications. No thoracic aortic aneurysm. No pericardial effusion. Other mediastinal structures: No signifi cant findings. Lower neck: No significant findings. Upper abdomen: Small hiatal hernia. Stat us post cholecystectomy. Bilateral renal cortical thinning of the imaged portions of the kidney. Body wall soft tissues: No significant f indings. Skeletal structures: No significant find ings. IMPRESSION 1. No evidence of fibrosing interstitial lung disorder or other significant pulmonary findings. 2. Cardiomegaly, similar to prior chest radiograph. 3. Severe coronary artery calcification. 4. Mild cortical thinning of the imaged portions of the kidneys. Preliminary report signed by: Brandy Isaacs at 04/17/2019 3:29 PM I have personally reviewed the image(s) and the residents interpretation and agree with the findings, Marybel hoff 04/17/2019 3:41 PM Thank you for letting us participate in the care of this patient. For questions regarding this report, please contact e number below. Electronically signed by: Marybel Joiner [facility] ([phone]), at 04/17/2019 3:41 PM Jeevan Holt MD IMG CT ORDERABLES documented in this encounter Visit Diagnoses Diagnosis COTTON (dyspnea on exertion) Other dyspnea and respiratory abnormalit y COTTON (dyspnea on exertion) Other dyspnea and respiratory abnormalit y COTTON (dyspnea on exertion) Other dyspnea and respiratory abnormalit y documented in this encounter Care Teams Engineering Design Manager Relationship Specialty Start Date End Date Tiera Phillip MD PCP - General Family Medicine 02/09/19 [address] [place] [address] documented as of this encounter
--- OUTSIDE RECORDS SUMMARY | 2022-04-14 13:30 | XMS_ITS | Encounter Summary ---
:1940 Author Organization [facility] Address [facility] [place] [address] Care Team Providers Name Role Phone Tiera Phillip MD Primary Care Provider Reason for Visit Reason Comments Skin Cancer Examination Encounter Details Date Type Department Care Team Description 02/12/2020 [facility] Kelly Bridges MD SK (seborrheic keratosis); [address] [facility] History of melanoma; [place] [address] [address] [address] History of basal cell carcinoma [phone] [facility] [place], [place] [address] Social History Tobacco Use Types Packs/Day Years Used Date Never Smoker Smokeless Tobacco: Never Used Alcohol Use Standard Drinks/Week Comments No 0 (1 standard drink = 0.6 oz pure alcoho l) Sex Assigned at Date Recorded Not on file documented as of this encounter Patient Instructions [facility] Instructions[facility] - 02/12/2020 11:30 AM EDT Actinic Keratoses Diagnosis: You have been diagnosed today with an actinic keratosis. These dry, scaly patches are considered theearliest stage in the development of skin cancer. A significant percentage of actinic keratoses develop into squamous cell carcinoma skin cancer; estimates range from 10-20% over a 10-year period. Because of this risk, actinic keratoses are usually treated. Treatment: You were treated today with liquid nitrogen. This is the most common treatment for actinic keratoses. Liquid nitrogen is extremely cold and freezes the surface of the skin, causing the lesion to flake off. This treatment can be uncomfortable but discomfort should subside after a couple of hours. The area treated will look red and irritated, and it may blister up or turn dark, then fall off. This is normal. Wound care: You do not need any special treatment for the area, but you may find cold compresses and/or a light application of Vaseline soothing. For best results, do not rub or pick at the healing lesion. Expected healing time is 3-4 weeks. Please contact the clinic if the lesion has not fully resolved after 6 weeks. Prevention: Long-term exposure to the sun is the single most significant cause of actinic keratoses, so the bestdefense against them is a comprehensive sun protection program. This includes wearing protective clothing and a wide-brimmed hat, avoiding the sun at midday when ultraviolet rays are strongest, stayingin the shade as much as possible, and wearing a broad-spectrum sunscreen with a sun protection factor (SPF) of at least 30. Contact information: On weekdays (8am to 5pm), please call the clinic at [phone]. After 5pm, and on weekends and holidays, please call the hospital at [phone] and ask for the Bunch Maker Hand Meter Readers Supervisor. documented in this encounter Progress Notes Sakshi Meek MD - 02/12/2020 11:30 AM EDT DERMATOLOGY ESTABLISHED PATIENT CLINIC NOTE Date of Service: 02/12/2020 Reinier Ramirez : 1940 Provider: Sakshi Meek MD Chief Complaint Patient presents with ??? Skin Cancer Examination SKIN HX Personal History Y/N Date, location, treatment Melanoma Yes 08/2010 (outside path): Right forearm, melanoma (excision, negative SLNB) DN No SCC Yes 03/27/19: Right lateral canthus, SCC (Mohs) 03/27/19: Right lateral eyebrow, SCC (Mohs) BCC Yes 07/04/12: Right clavicle, BCC (ED&C) 04/14/16: Left preauricular, nBCC (ED&C) 02/09/17: Left nasal ala, nBCC (Mohs) AK or field cancerization therapy Yes Numerous; LN2 Immunosuppression or malignancy No Blistering sunburns or tanning bed use No Other (i.e., eczema, psoriasis) Yes 02/17/12: Right forearm, HAK (LN2) Xerosis Relevant social history Served 26 years in [employer] in [place] and [place] Family History Y/N Parents, siblings, children Melanoma No NMSC No Other No Patient Preferences Preferred name Reinier Preferred contact method [] Home [x] Cell [] myD-H [] Other: Permission to leave detailed message including results [x] Yes [] No Permission to discuss care with (Alexandra) Preferred pharmacy [facility] in [place], [place], or [facility] Procedure Screening Questions Y/N Allergies to lidocaine or epinephrine No Blood thinners Yes: Xarelto Pacemaker or defibrillator No HPI Reinier Ramirez is a 79 y.o. male, established patient last seen by me on 03/27/2019. Here today for a 1-year full skin exam with the following concerns: - Lesions on face and right AC fossa; describes all as asymptomatic Last FSE: 02/07/19 MEDS Current Outpatient Medications Medication Sig Dispense Refill ??? atenolol (TENORMIN) 25 mg Tablet TAKE 1 TABLET DAILY 90 tablet 3 ??? simvastatin (ZOCOR) 10 mg Tablet TAKE 1 TABLET NIGHTLY 90 tablet 3 ??? XARELTO 20 mg Tablet TAKE 1 TABLET DAILY 90 tablet 3 ??? triamcinolone (KENALOG) 0.1 % Cream Apply to affected areas on underarms 2x/day for 2 weeks thenstop 45 g 0 ??? potassium chloride (KLOR-CON) 20 mEq Packet Take 20 mEq by mouth daily. ??? furosemide (LASIX) 40 mg Tablet Take 10 mg by mouth daily. ??? finasteride (PROSCAR) 5 mg Tablet Take 5 mg by mouth daily. No current facility-administered medications for this visit. ADR Allergies Allergen Reactions ??? Yzuhscp-Qif-Swa Reductase Inhibitors Swelling in joints ROS General: Feeling well Skin: Denies other skin complaints EXAM General: NAD, pleasant, cooperative Skin: Patient was asked to undress to the level of his comfort. Verbalized that the provider will not examine areas covered by underwear/mucous membranes. Patient's decision was to keep underwear on and have the following examined: skin of the scalp, hair, face, ears, neck, chest, abdomen, back, axillae, upper and lower extremities, hands, and feet. Areas of face under mask examined (COVID-19): [x] Yes [] No Significant Skin Findings: A. Right lateral eyebrow x 1, right yarsani x 1, left lateral eyebrow x 1, left cheek x 1, left jawline x 1, right chest x 1, central chest x 1, right dorsal hand and right forearm x 3, left dorsal handand left forearm x 5: 0.2-0.3 cm scaly irregular pink papules. [Total: 15] B. Trunk and extremities (including the right AC fossa): Brown papules/plaques with waxy stuck-on appearance. C. Well-healed hypopigmented scars per skin history. ASSESSMENT/PLAN A. Actinic Keratoses - Explained etiology, natural history and premalignant potential of these lesions. - Discussed treatment with cryotherapy, including the risks and benefits. - Patient elects to proceed with cryotherapy today. Procedure: Destruction of lesions with cryotherapy (LN2). Locations: As noted above. Number: 15 Discussed procedure and expectations, including risks (especially hypopigmentation) and benefits. Verbal consent obtained. Frozen with LN2, 15-30 second thaw time, twice. There were no complications; patient tolerated the procedure well. Post-procedure expectations and wound care reviewed. - Instructed patient to return to clinic for re-evaluation if lesions do not resolve with this treatment. B. Seborrheic Keratoses - Etiology discussed. - Patient reassured that benign in nature. C. H/O Melanoma, BCC - NER, will continue to monitor. Follow Up: RTC in 6 months (# of AKs) for: [x] FSE [] Follow up [x] Reminder placed in system [] Appointment scheduled before exiting Note initiated by: OPAL Carrington I am documenting this encounter acting as the scribe for and in the presence of Dr. Meek: Phyllis Bridges I performed the above scribed service and agree with the accuracy of the documentation in this encounter. Sakshi Meek MD Gang Knife Fish Chopper of Dermatology Department of Dermatology [facility] cc: Tiera Phillip MD documented in this encounter Plan of Treatment Not on filedocumented as of this encounter Visit Diagnoses Diagnosis AK (actinic keratosis) Actinic keratosis SK (seborrheic keratosis) Other seborrheic keratosis History of melanoma Personal history of malignant melanoma o f skin History of basal cell carcinoma Personal history of other malignant neop lasm of skin documented in this encounter Care Teams Executive Administrative Assistant Relationship Specialty Start Date End Date Tiera Phillip MD PCP - General Family Medicine 02/09/19 [address] [place] [address] documented as of this encounter
--- OUTSIDE RECORDS SUMMARY | 2022-04-14 13:30 | XMS_ITS | Encounter Summary ---
:1940 Author Organization [facility] Address [facility] [place] [address] Care Team Providers Name Role Phone Tiera Phillip MD Primary Care Provider Reason for Visit Reason Comments Skin Cancer Examination Encounter Details Date Type Department Care Team Description 03/03/2022 Office Visit Dermatology at [facility] oplasm of unspecified behavior of bone, soft tissue, and skin; Kelly Bridges MD AK (actinic keratosis); [address] [facility] Kelly angioma; [place] [address] Xerosis of skin [phone] [facility] [place], [place] [address] Social History Tobacco Use Types Packs/Day Years Used Date Never Smoker Smokeless Tobacco: Never Used Alcohol Use Standard Drinks/Week Comments No 0 (1 standard drink = 0.6 oz pure alcoho l) Sex Assigned at Date Recorded Not on file documented as of this encounter Progress Notes Blanca Meek MD - 03/03/2022 11:15 AM EDT Images from the original note were not included. DEPARTMENT OF DERMATOLOGY Medical Dermatology Clinic Provider: BLANCA MEEK MD Preferred name Reinier Preferred contact method for results [x]? Phone (cell) []? MyD-H []? Letter Permission to leave detailed message Yes Permission to discuss care with , Alexandra ?? 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 Xerosis Family History Details Melanoma N NMSC N Other relevant family history N Social History - Served 26 years in [place] in [place] and [place] ?? Pre-Procedure Screening Details Allergy to lidocaine, epinephrine, Dermabond, chlorhexidine, or adhesives: N Bleeding disorder or blood thinners: Yes, Xarelto Pacemaker, defibrillator, deep brain stimulator N History of Present Illness: Reinier Abhinav Ramirez is a 81 y.o. Patient returns to clinic today for a waistup skin exam with the following concerns: - Lesion on the right arm that has been present for a while. Last visit at Dermatology: 02/12/2021 Last visit with this provider: 02/12/2021 Medications: Reviewed in eD-H Allergies: Reviewed in eD-H Skin Examination: Waist-up skin examination: Patient was asked to disrobe to the level of their comfort. Patient elected to remain clothed below the waist. Examination of the scalp, hair, face, ears, neck, back, chest, abdomen, and upper extremities was normal with the exception of the findings below. Assessment/Plan A. SCC vs Other- heme crusted plaque on the right forearm (Figure 1). - Recommended a skin biopsy to confirm/clarify the nature of the skin lesion. After discussion of potential risks (scarring, bleeding, infection) and recurrence, patient agreed to proceed. - Patient denies known allergies to lidocaine. Procedure: Skin shave biopsy Location: right forearm Time of procedure: 11:28 AM Discussed indications for procedure and expectations including risks and benefits. Verbal consent obtained. Time out performed. Skin prepped with alcohol. Local anesthesia with 0.5% xylocaine. A sampleof the lesion was removed by shave technique to the level of the dermis and submitted to Pathology. H emostasis obtained (AlCl). There were no complications; patient tolerated the procedure well. Wound dressed. Post-procedure expectations, wound care and activity restrictions reviewed. - Follow-up based on pathology results. B. Actinic Keratoses - Ill-defined gritty papules on the right dorsal hand, left cheek x3, right cheek x3, left forearm/dorsal hand x7, right forearm x7. - Explained premalignant potential of these lesions. - Discussed treatment with cryotherapy. Patient elects to proceed with cryotherapy today. - Instructed patient to return to clinic for re-evaluation if lesion(s) does not resolve as expectedwith this treatment. Procedure: Destruction of lesion(s) with cryotherapy (LN2). Location(s): As noted above. Number: 20 Discussed procedure and expectations, including risks and benefits. Verbal consent obtained. Treatedwith LN2. There were no complications; Patient tolerated the procedure well. Post-procedure expectations and wound care reviewed. C. Hypertrophic Actinic keratosis - Hyperkeratotic papule on the right dorsal hand - Explained premalignant potential of these lesions. - Discussed treatment with cryotherapy. Patient elects to proceed with cryotherapy today. - Instructed patient to return to clinic for re-evaluation if lesion(s) does not resolve as expectedwith this treatment. Procedure: Destruction of lesion(s) with cryotherapy (LN2). Location(s): As noted above. Number: 1 Discussed procedure and expectations, including risks and benefits. Verbal consent obtained. Treatedwith LN2. There were no complications; Patient tolerated the procedure well. Post-procedure expectations and wound care reviewed. D. Kelly Angiomas - Multiple bright red, well-demarcated papules on the trunk and extremities. - Discussed benign nature of lesions and provided reassurance. No treatment necessary at this time. E. Xerosis - Diffuse xerosis on the back - Recommended applying a bland moisturizer (such as CeraVe cream) daily immediately after bathing. Figure 1 Photo(s) taken and charted with patient's verbal consent. Other: ??? N/A RTC: Pending pathology otherwise, 1 year for FSE []Note routed to typing secretary [x]Recall placed in scheduling system []Appointment scheduled at checkout Scribe attestation: Kay Hayes and Paradise Brar CMA have performed the documentation for this encounter in the presence of and acting as a scribe for BLANCA MEEK MD. I performed the above scribed service and agree with the accuracy of the documentation in this encounter. Reviewed and signed by: BLANCA MEEK MD Dermatology [facility] Blanca Meek MD - 03/03/2022 11:15 AM EDT CD, The biopsy shows BCC. I recommend ED&C. Please notify the patient, review the procedure, and schedule office visit for ED&C. Thank you, DTB Joy Zendejas RN - 03/03/2022 11:15 AM EDT I was unable to reach the patient to review his biopsy results and Dr. Meek's recommended treatment plan. I left a message on his cell phone instructing him to return my call at his convenience at [phone] between the hours of 8AM- 5PM. I noted in my message that this is not urgent. Site: Right forearm Result: BCC, nodular Plan: ED&C Joy Zendejas RN - 03/03/2022 11:15 AM EDT Patient returned my call to review the following biopsy results and Dr. Meek's recommended treatment plan: Site: Right forearm Result: BCC, nodular Plan: ED&C Patient says he is familiar with this diagnosis and procedure, and agreed to proceed. I encouraged him to contact the clinic with questions. He denies problems or concerns since the biopsy and is healing well. Note routed to typing secretary to schedule. documented in this encounter Plan of Treatment [...] in this encounter Results Specimen to Pathology (03/03/2022 11:44 AM EDT) Specimen Anatomical Collection Method Collection Time Receive d Time (Source) Location / / Volume Laterality AP Specimen 03/03/2022 11:44 03/03/2022 AM EDT 11:44 AM EDT Narrative [facility] - 03/03/2022 11:44 AM EDT Specimen requisition ordered. ??Separate Pathology report to follow Blanca Meek MD PATHOLOGY/CYTOLOGY ORDERABLE S Performing Organization Address City/State/[place] [address] [facility] [address] Surgical Pathology Report (03/03/2022 11:38 AM EDT) Component Value Ref Test Analysis Performed At [facility] Range Method Time Signature Surgical [id number] ? Location: [facility] Report The signing pathologist has (i) examined the relevant preparation(s) for the [facility] specimen(s) and (ii) rendered or confirmed the diagnosis(es) . HOSPITAL LAB[facility] . ?Surgic al Pathology DIAGNOSIS A. R ight forearm, skin shave biopsy: - ??Basal cell carcinoma, nodular type, transected Electronically signed by: ?Heidi SAUCEDO, Reinier Catalan Verified: ??03/05/2022 14:03 ??Dermatopathologist Performed at: ??-[facility] Dept. of Pathology, [place], [place] SPECIMEN(S) SUBMITTED A - right forearm, [...] / Volume Laterality 03/03/2022 11:38 AM EDT Blanca Meek MD PATHOLOGY/CYTOLOGY ORDERABLE S Performing Organization Address City/State/[place] [address] documented in this encounter Visit Diagnoses Diagnosis Neoplasm of unspecified behavior of bone , soft tissue, and skin AK (actinic keratosis) Actinic keratosis Kelly angioma Nevus, non-neoplastic Xerosis of skin Other specified disease of sebaceous gla nds documented in this encounter Care Teams Ruby Software Developer Relationship Specialty Start Date End Date Tiera Phillip MD PCP - General Family Medicine 02/09/19 [address] [place] [address] documented as of this encounter
--- OUTSIDE RECORDS SUMMARY | 2022-04-14 13:30 | XMS_ITS | Encounter Summary ---
:1940 Author Organization [facility] [place] [address] Care Team Providers Name Role Phone Tiera Phillip MD Primary Care Provider Reason for Visit Reason Onset Date Comments Pre Procedure Call 04/03/2019 Encounter Details Date Type Department Care Team Description 04/03/2019 Telephone Dermatology at [facility] Shameka Treviño P Procedure [address] FAMILY CASEWORKER [address] [place] [address] Social History Tobacco Use Types Packs/Day Years Used Date Never Smoker Smokeless Tobacco: Never Used Alcohol Use Standard Drinks/Week Comments No 0 (1 standard drink = 0.6 oz pure alcoho l) Sex Assigned at Date Recorded Not on file documented as of this encounter Miscellaneous Notes Telephone Encounter - Shameka Treviño LPN - 04/03/2019 2:24 PM EDT Mohs consultation and preoperative note (H&P) Patient Name: Reinier Ramirez Age: 78 y.o. Date of : 1940 Today's Date: 04/03/2019 REFERRING PROVIDER: No ref. provider found CC: Mohs micrographic surgery for treatment of [...] wheelchair ALLERGIES: Allergies reviewed MEDICATIONS: Medications reviewed documented in this encounter Plan of Treatment Not on filedocumented as of this encounter Visit Diagnoses Not on filedocumented in this encounter Care Teams International Sales Representative Relationship Specialty Start Date End Date Tiera Phillip MD PCP - General Family Medicine 02/09/19 [address] [place] [address] documented as of this encounter
--- OUTSIDE RECORDS SUMMARY | 2022-04-14 13:30 | XMS_ITS | Encounter Summary ---
:1940 Author Organization [facility] [place] [address] Care Team Providers Name Role Phone Tiera Phillip MD Primary Care Provider Encounter Details Date Type Department Care Team Description 03/31/2019 Telephone Dermatology at [facility] Sakshi Rojo MD [address] [facility] [place] [address] [facility] [phone] [place], [place] [address] (Wo rk) Social History Tobacco Use Types Packs/Day Years Used Date Never Smoker Smokeless Tobacco: Never Used Alcohol Use Standard Drinks/Week Comments No 0 (1 standard drink = 0.6 oz pure alcoho l) Sex Assigned at Date Recorded Not on file documented as of this encounter Miscellaneous Notes Telephone Encounter - Elena Everett LPN - 03/31/2019 11:35 AM EDT I returned this patient's phone call and discussed his recent biopsy results. See recent result note. ELENA EVERETT LPN Telephone Encounter - Paradise Limon - 03/31/2019 10:39 AM EDT Patient requested call back at [phone] (returning Mariel's call). documented in this encounter Plan of Treatment Not on filedocumented as of this encounter Visit Diagnoses Not on filedocumented in this encounter Care Teams Environmental Aid Relationship Specialty Start Date End Date Tiera Phillip MD PCP - General Family Medicine 02/09/[address] [place] [address] documented as of this encounter
--- OUTSIDE RECORDS SUMMARY | 2022-04-14 13:30 | XMS_ITS | Encounter Summary ---
:1940 Author Organization [facility] [place] [address] Care Team Providers Name Role Phone Tiera Phillip MD Primary Care Provider Reason for Referral Diagnostic Test (Routine) - Closed Specialty Diagnoses / Procedures Referred By Contact Refer red To Contact Radiology Diagnoses COTTON (dyspnea on exertion) Jeevan Griffith MD [facility] Rad Ct Scan Procedures CT Chest wo Contrast (Generic) [facility] [place] [address] [place] [address] Referral ID Status Reason Start Date Expiration Date Visits V isits Requested Authorized [id number] Closed Specialty 04/14/2019 04/13/2020 1 1 Service Requested Reason for Visit Diagnostic Test (Routine) - Closed Specialty Diagnoses / Procedures Referred By Contact Refer red To Contact Radiology Diagnoses COTTON (dyspnea on exertion) Jeevan Griffith MD [facility] Rad Ct Scan Procedures CT Chest wo Contrast (Generic) [place] [address] [place] [address] Referral ID Status Reason Start Date Expiration Date Visits V isits Requested Authorized [id number] Closed Specialty 04/14/2019 04/13/2020 1 1 Service Requested Encounter Details Date Type Department Care Team Description 04/17/[address] Scan at [facility] Jeevan Griffith YURY (dyspnea on One [facility] MD Yanet exertion) Drive [facility] [address] PULMONARY [phone] [place] [address] Social History Tobacco Use Types Packs/Day Years Used Date Never Smoker Smokeless Tobacco: Never Used Alcohol Use Standard Drinks/Week Comments No 0 (1 standard drink = 0.6 oz pure alcoho l) Sex Assigned at Date Recorded Not on file documented as of this encounter Medications at Time of Discharge Medication Sig Dispensed Refills Start Date End Date triamcinolone (KENALOG) Apply to affected 45 g 0 02/07 0.1 % CreamIndications: areas on underarms Irritant contact 2x/day for 2 weeks dermatitis, unspecified then stop trigger potassium chloride Take 20 mEq by mouth 0 (KLOR-CON) 20 mEq Packet daily. furosemide (LASIX) 40 mg Take 10 mg by mouth 0 Tablet daily. finasteride (PROSCAR) 5 Take 5 mg by mouth 0 mg Tablet daily. atenolol (TENORMIN) 25 mg Take 1 tablet by 90 tablet 3 02/201804/18/2019 TabletIndications: mouth daily. Chronic atrial fibrillation, Essential hypertension, Left ventricular hypertrophy simvastatin (ZOCOR) 10 mg Take 1 tablet by 90 tablet 3 02/201804/18/2019 Tablet mouth nightly. rivaroxaban (XARELTO) 20 Take 1 tablet by 90 tablet 3 02/2304/18/2019 mg TabletIndications: mouth daily. Chronic atrial fibrillation, Essential hypertension, Left ventricular hypertrophy documented as of this encounter Plan of Treatment Not on filedocumented as of this encounter Procedures Procedure Name Priority Date/Time Associated Diagnosis Comme nts CT CHEST WO Routine 04/17/2019 12:26 PM COTTON (dyspnea on Resul ts for this CONTRAST (GENERIC) EDT exertion) procedure are in the results section. documented in this encounter Results CT Chest wo Contrast (Generic) (04/17/2019 12:26 PM EDT) Anatomical Region Laterality Modality Chest Computed Tomography Specimen (Source) Anatomical Location Collection Method / Collectio n Time Received Time / Laterality Volume Impressions 04/17/2019 3:41 PM EDT 1. ??No evidence of fibrosing interstitial lung disorder or other significant pulmonary findings. 2. ??Cardiomegaly, similar to prior [facility] t radiograph. 3. ??Severe coronary artery calcificatio [...] number below. ? Electronically signed by: Marybel Joiner, [facility] ([phone]), at 04/17/2019 3:41 PM Narrative 04/17/2019 3:41 [...] this report, please contact e number below. Jeevan Holt MD IMG CT ORDERABLES documented in this encounter Visit Diagnoses Diagnosis COTTON (dyspnea on exertion) Other dyspnea and respiratory abnormalit y documented in this encounter Care Teams Property Controller Relationship Specialty Start Date End Date Tiera Phillip MD PCP - General Family Medicine 02/09/19 [address] [place] [address] documented as of this encounter
--- OUTSIDE RECORDS SUMMARY | 2022-04-14 13:30 | XMS_ITS | Encounter Summary ---
:1940 Author Organization [facility] [place] [address] Care Team Providers Name Role Phone Tiera Phillip MD Primary Care Provider Reason for Visit Reason Comments Medication Refill Encounter Details Date Type Department Care Team Description 03/31/2019 Refill Cardiology at [facility] Alexis Shook MD Medication Refill [facility] [place] [address] CARDIOLOGY DEPT. [phone] [place], [place] [address] (Wo rk) Social History Tobacco [...] on filedocumented in this encounter Care Teams Computational Mathematician Relationship Specialty Start Date End Date Tiera Phillip MD PCP - General Family Medicine 02/09/19 [address] [place], [place] [id number] documented as of this encounter
--- OUTSIDE RECORDS SUMMARY | 2022-04-14 13:30 | XMS_ITS | Encounter Summary ---
:1940 Author Organization [facility] [place] [address] Care Team Providers Name Role Phone Tiera Phillip MD Primary Care Provider Encounter Details Date Type Department Care Team Description 04/17/2019 Hospital Encounter Pulmonology at [facility] COTTON (dyspnea on One [facility] exertion) [place] [address] Social History Tobacco Use Types Packs/Day Years [...] ventricular hypertrophy documented as of this encounter Procedure Notes Omar Egan MD - 04/17/2019 11:59 PM EDTAssociated Order(s): PULMONARY FUNCTION TEST A. SPIROMETRY Reveals a mild (79-60%) reduction in the FVC and a normal FEV1/FVC ratio. B. DIFFUSING CAPACITY: Is within normal limits. C. PULSE OXIMETRY: Resting oxyhemoglobin saturation is normal. Resting oximetry was assessed while the patient was breathing room air. D. FINAL IMPRESSION: The normal DLCO in conjunction with RVD suggests that a Process not involving the lung parenchyma(chest wall/pleural disease or muscle weakness) is present. documented in this encounter Plan of Treatment Not on filedocumented as of this encounter Procedures Procedure Name Priority Date/Time Associated Diagnosis Comme nts PULMONARY FUNCTION Routine 04/17/2019 11:59 PM COTTON (dyspnea on Results for this TEST EDT exertion) procedure are i n the results section. documented in this encounter Results Pulmonary Function Testing (04/17/2019 [...] is present. Jeevan Holt MD PFT ORDERABLES documented in this encounter Visit Diagnoses Diagnosis COTTON (dyspnea on exertion) Other dyspnea and respiratory abnormalit y documented in this encounter Care Teams Warehouse Checker Relationship Specialty Start Date End Date Tiera Phillip MD PCP - General Family Medicine 02/09/19 [address] [place] [address] documented as of this encounter
--- OUTSIDE RECORDS SUMMARY | 2022-04-14 13:31 | XMS_ITS | Encounter Summary ---
:1940 Author Organization [facility] [place] [address] Care Team Providers Name Role Phone Kb Nguyen MD Primary Care Provider Encounter Details Date Type Department Care Team Description 02/08/2017 Telephone Cardiology at [facility] Cherelle Shields, [place] [address] Social History Tobacco Use Types Packs/Day Years Used Date Never Smoker Smokeless Tobacco: Never Used Alcohol Use Standard Drinks/Week Comments No 0 (1 standard drink = 0.6 oz pure alcoho l) Sex Assigned at Date Recorded Not on file documented as of this encounter Miscellaneous Notes Telephone Encounter - Cherelle Shields, RN - 02/08/2017 10:28 AM EDT Called pt. To ask that pt. Have labs drawn per ACEi protocol. Pt. Requested to schedule appt., recall in system for 11/2016, schedule line busy when attempted to transfer pt. Explained that scheduling would call pt. Pt. Will get labs drawn tomorrow at [facility] [address] Location and await call from schedulers. documented in this encounter Plan of Treatment Not on filedocumented as of this encounter Visit Diagnoses Not on filedocumented in this encounter Care Teams Metal Wire Technician Relationship Specialty Start Date End Date Kb Nguyen MD PCP - General 12/01/16 03/29/17 [place] [id number] documented as of this encounter
--- OUTSIDE RECORDS SUMMARY | 2022-04-14 13:31 | XMS_ITS | Encounter Summary ---
:1940 Author Organization [facility] [place] [address] Care Team Providers Name Role Phone Matt Duncan MD Primary Care Provider Encounter Details Date Type Department Care Team Description 04/21/2016 Telephone Dermatology at [facility] Sakshi Rojo MD [address] [facility] [place] [address] [facility] [phone] [place], [place] [address] (Wo rk) Social History Tobacco Use Types Packs/Day Years Used Date Never Smoker Smokeless Tobacco: Never Used Alcohol Use Standard Drinks/Week Comments No 0 (1 standard drink = 0.6 oz pure alcoho l) Sex Assigned at Date Recorded Not on file documented as of this encounter Miscellaneous Notes Telephone Encounter - Elena Everett LPN - 04/21/2016 4:35 PM EDT I returned this patient's phone call, and spoke with the patient as well as his who was on speaker phone. I advised the patient as well as his that I have found a Mohs surgeon that his Vision Mixer in [place] recommend. Patient's reports they are now going to [place] for 2 months (still leaving 05/02/16) before they leave for [place]. Patient asked why Dr. Meek could not perform the surgery, I told her Dr. Meek does not specialize in Mohs. Patient's seemed upset stating this should be your top priority of this patient having Mohs before they leave out of state nextweek. Patient's reports she is nervous due to his history of Melanoma. I assured her the BCC i s a common, local, slow growing skin cancer, which does not need to be excised as soon as possible. I told this patient's I will notify Dr. Meek of the change in location plans and will return her phone call with how Dr. Meek would like to proceed. I advised her that Dr. Meek is out of clinic today and this week, but as soon as I hear from her I will return this phone call as soon as possible. Patient and patient's verbalized understanding and is happy with this plan. ELENA EVERETT LPN documented in this encounter Plan of Treatment Not on filedocumented as of this encounter Visit Diagnoses Not on filedocumented in this encounter Care Teams Medical Radiation Therapist Relationship Specialty Start Date End Date Matt Duncan MD PCP - General 04/28/13 11/30/16 [facility] [[email or web address] [address] [place] [address] documented as of this encounter
--- OUTSIDE RECORDS SUMMARY | 2022-04-14 13:31 | XMS_ITS | Encounter Summary ---
:1940 Author Organization [facility] Address [facility] [place] [address] Care Team Providers Name Role Phone IsidroAaliyah CHRISTELLE Primary Care Provider Encounter Details Date Type Department Care Team Description 04/22/2017 Hospital Encounter Non-Invasive YURY Shook (dys pnea on exertion); Cardiology Lab Mallory Espinoza MD Abnormal echocardiogram [facility] [place] [address] [phone] Social History Tobacco Use Types Packs/Day Years Used Date Never Smoker Smokeless Tobacco: Never Used Alcohol Use Standard Drinks/Week Comments No 0 (1 standard drink = 0.6 oz pure alcoho l) Sex Assigned at Date Recorded Not on file documented as of this encounter Medications at Time of Discharge Medication Sig Dispensed Refills Start Date End Date finasteride (PROSCAR) Take 5 mg by mouth 0 5 mg Tablet daily. XARELTO 20 mg TAKE 1 TABLET DAILY 90 tablet 3 02/08/2017 TabletIndications: Chronic atrial fibrillation, Essential hypertension, Left ventricular hypertrophy atenolol (TENORMIN) 25 TAKE 1 TABLET DAILY FOR 90 tablet 3 02/08/2017 02/23/2018 mg TabletIndications: ATRIAL FIBRILLATION Chronic atrial fibrillation, Essential hypertension, Left ventricular hypertrophy simvastatin (ZOCOR) 10 TAKE 1 TABLET NIGHTLY 90 tablet 3 02/23/2018 mg Tablet losartan (COZAAR) 50 TAKE 1 TABLET DAILY 90 tablet 3 201602/23/2018 mg TabletIndications: Chronic atrial fibrillation, Essential hypertension, Left ventricular hypertrophy documented as of this encounter Plan of Treatment Not on filedocumented as of this encounter Procedures Procedure Name Priority Date/Time Associated Diagnosis Comme nts NUCLEAR PHARMACOLOGIC Routine 04/22/2017 11:35 AM COTTON (dyspnea on STRESS CARDIOLOGY EDT exertion) Abnormal echocardiogram documented in this encounter Results Nuclear Pharmacologic Stress Cardiology (04/22/2017 11:35 AM EDT) Anatomical Region Laterality Modality Other Specimen (Source) Anatomical Location Collection Method / Collectio n Time Received Time / Laterality Volume Narrative This result has an attachment that is no t available. Alexis Shook MD CARDIAC SERVICES ORDERABLES documented in this encounter Visit Diagnoses Diagnosis COTTON (dyspnea on exertion) Other dyspnea and respiratory abnormalit y Abnormal echocardiogram Nonspecific (abnormal) findings on radio logical and other examination of other intrathoracic organs documented in this encounter Care Teams Pot Sander Relationship Specialty Start Date End Date Aaliyah Felix APRN PCP - General Family Medicine 03/30/17 02/08/[address] [place] [address] [place] [address] documented as of this encounter
--- OUTSIDE RECORDS SUMMARY | 2022-04-14 13:31 | XMS_ITS | Encounter Summary ---
:1940 Author Organization [facility] [address] Care Team Providers Name Role Phone Aaliyah Felix APRN Primary Care Provider Reason for Visit Reason Comments Wound Check Encounter Details Date Type Department Care Team Description 05/24/2017 Clinical Support Dermatology at [place], Status post Mohs surgery; Road MD Visit for wound check [address] [facility] [address] [place], [place] [phone] [id number] Social History Tobacco Use Types Packs/Day Years Used Date Never Smoker Smokeless Tobacco: Never Used Alcohol Use Standard Drinks/Week Comments No 0 (1 standard drink = 0.6 oz pure alcoho l) Sex Assigned at Date Recorded Not on file documented as of this encounter Progress Notes Dennis Kidd MD - 05/24/2017 1:15 PM EST Dermatologic Surgery Post-Operative Wound Check Patient: Reinier Ramirez Today's Date: 05/24/2017 Date of : 1940 Chief complaint: [x] Wound check [] Suture removal History of Present Illness: HPI: Patient is a 77 y.o. male with history of basal cell carcinoma, left nasal ala, s/p Mohs on 04/27/17 repaired by transposition flap who is presenting for wound check and possible intralesional Kenalog injection. Exam: Very mild hypertrophy of the distal aspect of flap. Focal area healing by second intention on the alar crease. Plan: 1. Spitting suture removed in alar crease. 2. The area granulating needs to continue to granulate so surrounding skin de- epithelialized with curette today. Continue vaseline until completely healed in this focal area that is granulating. 3. The distal aspect of flap was injected 0.4 cc (of 5mg/cc kenalog) at one site. 4. Patient is unable to follow up due to travel. Instructed to follow up as needed, possibly Spring 2017. Dennis Kidd MD Mohs Micrographic Surgery and Dermatologic Oncology Section of Dermatology, Department of Surgery documented in this encounter Plan of Treatment Not on filedocumented as of this encounter Visit Diagnoses Diagnosis Status post Mohs surgery Other postprocedural status Visit for wound check Encounter for other specified aftercare documented in this encounter Care Teams Zookeeper Relationship Specialty Start Date End Date Aaliyah Felix APRN PCP - General Family Medicine 03/30/17 02/08/[address] [place] [place] [address] documented as of this encounter
--- OUTSIDE RECORDS SUMMARY | 2022-04-14 13:31 | XMS_ITS | Encounter Summary ---
:1940 Author Organization [place] [address] Care Team Providers Name Role Phone Roseline Felixh CHRISTELLE Primary Care Provider Reason for Referral Diagnostic Test (Routine) - Closed Specialty Diagnoses / Procedures Referred By Contact Refer red To Contact Cardiology Diagnoses Chronic atrial fibrillation Cardiomyopathy, unspecified type Alexis Shook MD [facility] Non-Inv Card Lab Procedures Echocardiogram Transthoracic(Leb) [facility] CARDIOLOGY DEPT. [place], [place] [id number] [place] [phone] Fax: Referral ID Status Reason Start Date Expiration Date Visits V isits Requested Authorized [id number] Closed Specialty 03/30/2017 03/30/2018 1 1 Service Requested Reason for Visit Diagnostic Test (Routine) - Closed Specialty Diagnoses / Procedures Referred By Contact Refer red To Contact Cardiology Diagnoses Chronic atrial fibrillation Cardiomyopathy, unspecified type Alexis Shook MD [facility] Non-Inv Card Lab Procedures Echocardiogram Transthoracic(Leb) [facility] CARDIOLOGY DEPT. [place], [place] [id number] [place] [phone] Fax: Referral ID Status Reason Start Date Expiration Date Visits V isits Requested Authorized [id number] Closed Specialty 03/30/2017 03/30/2018 1 1 Service Requested Encounter Details Date Type Department Care Team Description 03/30/2017 Hospital Encounter Non-Invasive Kater, Chronic atrial fibrillation; Cardiology Lab Mallory Espinoza MD Cardiomyopathy, unspecified type [facility] CARDIOLOGY [address] [place], [place] [address] [phone] Social History Tobacco Use Types Packs/Day Years [...] atrial fibrillation, Essential hypertension, Left ventricular hypertrophy aspirin 81 mg chewable Take 81 mg by mouth 0 04/12/2017 tablet daily. documented as of this encounter Plan of Treatment Not on filedocumented as of this encounter Procedures Procedure Name Priority Date/Time Associated Comments Diagnosis ECHOCARDIOGRAM Routine 03/30/2017 6:10 Chronic atrial Results for this TRANSTHORACIC(LEB) PM EDT fibrillation procedure are in Cardiomyopathy, the results unspecified type section. documented in this encounter Results ECHOCARDIOGRAM NO CHARGE (03/30/2017 6:10 PM EDT) Anatomical Region Laterality Modality Other Specimen (Source) Anatomical Location Collection Method / Collectio n Time Received Time / Laterality Volume 03/31/2017 Narrative 03/31/2017 3:41 PM EDT Procedure: ?Transthoracic Echocardiogram Patient: ?BALAJI ACOSTA La ? (Age): 1940(76y) Med Rec#: ? [id number] ?Sex: ?M ? Site Loc: ? [facility] ?Ht / Wt: ??179(cm)/117(kg) Pt. Loc: ?Echo Lab ?BSA: ?2.34 Study Date: ?? 03/30/2017 ?Pt. Type: Outpatient Tape: ? Referring: Alexis Shook Reading: Orlando Allen ([id number]) Healthcare Administrative Assistant: Diego Apple Diagnosis: *ICD-10-PCS Chronic atrial fibrillation (I48.2) Rhythm: ? A-Fib BP: ? 112/70 SUMMARY: 1. The left ventricle is not well visual ized. ??The left ventricle is probably normal in size. ??There is norm al global left ventricular systolic function. ??The quantitative le ft ventricular ejection fraction by biplane Mckinley's method is 60%. ??Th ere are left ventricular segmental wall motion abnormalities pres ent, as shown in the diagram below. ??Left sided filling pressure cou ld not be assessed by Doppler. 2. The right ventricle is probably jackeline l in size. ??Right ventricular global systolic function is normal. ??Th e estimated pulmonary artery systolic pressure is 26 mmHg. ?? 3. The left atrium is severely dilated. ??The right atrium is moderately dilated. 4. There is no hemodynamically significa nt valve disease. 5. See remainder of report for additiona l findings. 6. Compared to the prior study on 7/31/2 014, there are no significant changes aside from enlargement of both a tria. Findings ? : Study Quality: ? Technically limited Left Ventricle: ? The left ventricle is not well visualized. ?The left ventricle is probably nor mal in size. ?There is normal global left ventri cular systolic function. ?The quantitative left ventricular ejection fraction by biplane Mckinley's method is 60%. ?There are left ventricular segment al wall motion abnormalities present, as shown in the diagram below. ?Left sided filling pressure could not be assessed by Doppler. ?The ??basal inferior, basal infero septal, mid inferolateral, and ??mid inferior wall segments are hypokinetic ( score 2). ?Overall wallmotion score index is ??1.25 Left Atrium: ? The left atrium is se verely dilated.60 ml/m2 Right Ventricle: ? The right ventric le is probably normal in size. ?Right ventricular global systolic function is normal. ?The estimated pulmonary artery sys tolic pressure is 26 mmHg. Right Atrium: ? The right atrium is moderately dilated. Aortic Valve: ? The aortic valve is trileaflet. The leaflets are thin with normal excursion. There is no aorti c stenosis or regurgitation present. Mitral Valve: ? The mitral valve katerina flets are mildly thickened. ?There is trace mitral regurgitatio n present. Tricuspid Valve: ? The tricuspid carlos enrique ve appears normal in structure and function. ?There is mild (1+/4+) tricuspid re gurgitation present. Pulmonic Valve: ? The pulmonic valve appears normal in structure and function. Pericardium: ? The pericardium appea rs normal and there is no evidence of a pericardial effusion. Aorta: ? The aortic root is normal i n size. ?The ascending aorta is normal in s ize. Pulmonary Artery: ? The main pulmona ry artery appears normal. Venous: ? The inferior vena cava is poorly visualized. Misc: ? There is no hemodynamically significant valve disease. ?See remainder of report for additi onal findings. ?Two-dimensional echo, spectral Dop pler and color Doppler performed. ?Definity contrast (one 1.5 ml vial )was used to enhance endocardial definition. Excess contrast was discarde d. Chambers 2D ?Value ?Units (Range) ? Ao root diameter (2D3 ?cm (2.1 - 3.6) ? Ascending Ao ?3.3 ?cm (2 - 3.5) ? Volumes/Mass ?Value ?Units (Range) ? LA ESV BP (A/L) inde60.5 ? ml/m2 ? LV ESV SP 4CH (MOD) 38.9 ? ml ? LV ESV SP 2CH (MOD) 43.2 ? ml ? LV EDV BP ? 103.7 ?ml ? LV ESV BP ? 41.2 ? ml ? LV EDV BP index ? 44.3 ? ml/m2 ? LV ESV BP index ? 17.6 ? ml/m2 ? BP EF (MOD) ? 60 ? % ? Diastolic/Systolic Function ?Value ?Units (Range) ? MV E-wave Vmax ?0.8 ?m/sec ? LV septal e' Vmax ?? 0.1 ?m/sec ? LV lateral e' Vmax ??0.1 ?m/sec ? LV average e' Vmax ??0.1 ?m/sec ? LV E:e' septal ratio11.3 ? ratio ? LV E:e' lateral rati7.9 ?ratio ? LV average E:e' rati9.9 ?ratio ? Tricuspid Valve ?Value ?Units (Range) ? TR Vmax ? 2.1 ?m/sec ? TR peak gradient ?18.3 ? mmHg ? RAP ? 8 ?mmHg ? RVSP ?26 ? mmHg ? Wall Motion: Segment Name ?Rest ? Base-Anteroseptal ?? Normal ? Base-Anterior ? Normal ? Base-Anterolateral ??Normal ? Base-Posterolateral Normal ? Base-Inferior ? Hypokinetic ? Base-Inferoseptal ?? Hypokinetic ? Mid-Anteroseptal ?Normal ? Mid-Anterior ?Normal ? Mid-Anterolateral ?? Normal ? Mid-Posterolateral ??Hypokinetic ? Mid-Inferior ?Hypokinetic ? Mid-Inferoseptal ?Normal ? [place]-Septal ? Normal ? [place]-Anterior ? Normal ? [place]-Lateral ?Normal ? [place]-Inferior ? Normal ? [place]-Tip ?Normal ? This report has been electronically sign ed by: _ Orlando Allen MD ? 03/31/2017 15:40:58 Images reviewed and interpretation verif ied [facility] Cardiac Ultrasound Laboratory Procedure Note Orlando Allen MD - 03/31/2017Form atting of this note might be different from the original. Procedure: Transthoracic Echocardiogram Patient: BALAJI CARLISLE(Age): [birth year](76y) Med Rec#: [id number] Sex: M Site Loc: [facility] Ht / Wt: 179(cm)/117(kg) Pt. Loc: Echo Lab BSA: 2.34 Study Date: 03/30/2017 Pt. Type: Outpati ent Tape: Referring: Alexis Shook Reading: Orlando Allen ([id number]) Healthcare Administrative Assistant: Diego Apple Diagnosis: *ICD-10-PCS Chronic atrial fibrillation (I48.2) Rhythm: A-Fib BP: 112/70 SUMMARY: 1. The left ventricle is not well visual ized. The left ventricle is probably normal in size. There is normal global left ventricular systolic function. The quantitative left ventricular ejection fraction by biplane Mckinley's method is 60%. Ther e are left ventricular segmental wall motion abnormalities pres ent, as shown in the diagram below. Left sided filling pressure could not be assessed by Doppler. 2. The right ventricle is probably jackeline l in size. Right ventricular global systolic function is normal. The estimated pulmonary artery systolic pressure is 26 mmHg. 3. The left atrium is severely dilated. The right atrium is moderately dilated. 4. There is no hemodynamically significa nt valve disease. 5. See remainder of report for additiona l findings. 6. Compared to the prior study on 014, there are no significant changes aside from enlargement of both a tria. Findings : Study Quality: Technically limited Left Ventricle: The left ventricle is no t well visualized. The left ventricle is probably normal i n size. There is normal global left ventricular systolic function. The quantitative left ventricular eject ion fraction by biplane Mckinley's method is 60%. There are left ventricular segmental wa ll motion abnormalities present, as shown in the diagram below. Left sided filling pressure could not b e assessed by Doppler. The basal inferior, basal inferoseptal, mid inferolateral, and mid inferior wall segments are hypokinetic ( score 2). Overall wallmotion score index is 1.25 Left Atrium: The left atrium is severely dilated.60 ml/m2 Right Ventricle: The right ventricle is probably normal in size. Right ventricular global systolic funct ion is normal. The estimated pulmonary artery systolic pressure is 26 mmHg. Right Atrium: The right atrium is modera tely dilated. Aortic Valve: The aortic valve is trilea flet. The leaflets are thin with normal excursion. There is no aorti c stenosis or regurgitation present. Mitral Valve: The mitral valve leaflets are mildly thickened. There is trace mitral regurgitation pre sent. Tricuspid Valve: The tricuspid valve makenzie ears normal in structure and function. There is mild (1+/4+) tricuspid regurgi tation present. Pulmonic Valve: The pulmonic valve appea rs normal in structure and function. Pericardium: The pericardium appears nor mal and there is no evidence of a pericardial effusion. Aorta: The aortic root is normal in size . The ascending aorta is normal in size. Pulmonary Artery: The main pulmonary art anastasiia appears normal. Venous: The inferior vena cava is poorly visualized. Misc: There is no hemodynamically signif icant valve disease. See remainder of report for additional findings. Two-dimensional echo, spectral Doppler and color Doppler performed. Definity contrast (one 1.5 ml vial)was used to enhance endocardial definition. Excess contrast was discarde d. Chambers 2D Value Units (Range) Ao root diameter (2D3 cm (2.1 - 3.6) Ascending Ao 3.3 cm (2 - 3.5) Volumes/Mass Value Units (Range) LA ESV BP (A/L) inde60.5 ml/m2 LV ESV SP 4CH (MOD) 38.9 ml LV ESV SP 2CH (MOD) 43.2 ml LV EDV BP 103.7 ml LV ESV BP 41.2 ml LV EDV BP index 44.3 ml/m2 LV ESV BP index 17.6 ml/m2 BP EF (MOD) 60 % Diastolic/Systolic Function Value Units (Range) MV E-wave Vmax 0.8 m/sec LV septal e' Vmax 0.1 m/sec LV lateral e' Vmax 0.1 m/sec LV average e' Vmax 0.1 m/sec LV E:e' septal ratio11.3 ratio LV E:e' lateral rati7.9 ratio LV average E:e' rati9.9 ratio Tricuspid Valve Value Units (Range) TR Vmax 2.1 m/sec TR peak gradient 18.3 mmHg RAP 8 mmHg RVSP 26 mmHg Wall Motion: Segment Name Rest Base-Anteroseptal Normal Base-Anterior Normal Base-Anterolateral Normal Base-Posterolateral Normal Base-Inferior Hypokinetic Base-Inferoseptal Hypokinetic Mid-Anteroseptal Normal Mid-Anterior Normal Mid-Anterolateral Normal Mid-Posterolateral Hypokinetic Mid-Inferior Hypokinetic Mid-Inferoseptal Normal [place]-Septal Normal [place]-Anterior Normal [place]-Lateral Normal [place]-Inferior Normal [place]-Tip Normal This report has been electronically sign ed by: _ Orlando Allen MD 03/31/2017 15:40: 58 Images reviewed and interpretation verif ied [facility] Cardiac Ultrasound Laboratory Alexis Shook MD ECHO ORDERABLES documented in this encounter Visit Diagnoses Diagnosis Chronic atrial fibrillation Atrial fibrillation Cardiomyopathy, unspecified type documented in this encounter Care Teams Patch Press Operator Relationship Specialty Start Date End Date Aaliyah Felix APRN PCP - General Family Medicine 03/30/17 02/08/19 [place] [address] documented as of this encounter
--- OUTSIDE RECORDS SUMMARY | 2022-04-14 13:31 | XMS_ITS | Encounter Summary ---
:1940 [place] [address] Care Team Providers Name Role Phone Aaliyah Felix APRN Primary Care Provider Reason for Visit Reason Onset Date Comments Medication Refill 05/25/2018 Encounter Details Date Type Department Care Team Description 05/25/2018 Refill Cardiology at [facility] Alexis Shook MD Medication Refill [facility] [place] [address] CARDIOLOGY DEPT. [phone] [place], [place] [address] (Wo rk) Social History Tobacco Use Types Packs/Day Years Used Date Never Smoker Smokeless Tobacco: Never Used Alcohol Use Standard Drinks/Week Comments No 0 (1 standard drink = 0.6 oz pure alcoho l) Sex Assigned at Date Recorded Not on file documented as of this encounter Plan of Treatment Not on filedocumented as of this encounter Visit Diagnoses Diagnosis Essential hypertension - Primary Unspecified essential hypertension Chronic atrial fibrillation Atrial fibrillation Left ventricular hypertrophy Cardiomegaly documented in this encounter Care Teams Bill Hiker Relationship Specialty Start Date End Date Aaliyah Felix APRN PCP - General Family Medicine 03/30/17 02/08/19 [place] [address] documented as of this encounter
--- OUTSIDE RECORDS SUMMARY | 2022-04-14 13:31 | XMS_ITS | Encounter Summary ---
:1940 Author Organization [facility] Address [address] [place] [address] Care Team Providers Name Role Phone KevinAaliyah soriano DATABASE DEVELOPMENT PROJECT MANAGER Primary Care Provider Reason for Visit Reason Comments Skin Check FSE Encounter Details Date Type Department Care Team Description 02[facility]07[facility] [place] [facility] Kelly Bridges MD Irritant contact dermatitis, unspecified trigger; [address] [facility] History of basal cell carcin gail; [place] [address] [address] [address] History of squamous cell carcinoma in si tu; [phone] [facility] History of [address] [place], [place] [address] Social History Tobacco Use Types Packs/Day Years Used Date Never Smoker Smokeless Tobacco: Never Used Alcohol Use Standard Drinks/Week Comments No 0 (1 standard drink = 0.6 oz pure alcoho l) Sex Assigned at Date Recorded Not on file documented as of this encounter Patient Instructions Patient InstructionsPlace, Phyllis Yu - 02/07/2019 9:30 AM EDT Actinic Keratoses Diagnosis: You have [...] to flake off. This treatment can be uncomfortable, but discomfort should subside after a couple [...] to 5pm), please call the clinic at [phone]. After 5pm, and on weekends and holidays, please call the hospital at [phone] and ask for the [employer] Paper Latcher. documented in this encounter Progress Notes Sakshi Meek MD - 02/07/2019 9:30 AM EDT DERMATOLOGY ESTABLISHED PATIENT CLINIC NOTE Date of service: 02/07/2019 Reinier Ramirez : 1940 Provider: Sakshi Meek MD Chief Complaint Patient presents with ??? Skin Check FSE SKIN HX: 08/2010 (outside path) Right forearm, excision: Melanoma - s/p WLE, negative SNLB 02/17/2012 Right forearm, shave biopsy: Hyperplastic actinic keratosis with dermal fibrosis. Comment: The dermal changes may represent prior treatment effect. 07/04/2012 Right clavicle, shave biopsy: BCC - s/p ED&C 07/22/12 04/14/2016 Left preauricular: BCC, nodular type, transected - s/p ED&C 04/28/16 02/09/2017 Left nasal ala, shave biopsy: BCC, nodular and infiltrative (micronodular) type, present at the peripheral edge and base of the specimen. - s/p Mohs 04/27/17 ? 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 male, established patient last seen by me on 04/05/18. Here today for a full skin exam (history of melanoma, NMSC). Denies any significant changes in health since last appointment. Concerned today about a non-healing, heme-crusted lesion on his right lateral brow, present for several weeks. Patient also notes a rash on the bilateral axillae, which he has not treated. MEDS: Current Outpatient Medications Medication Sig Dispense Refill ??? losartan (COZAAR) 25 mg Tablet Take [...] this visit. ADR: Allergies Allergen Reactions ??? Zyypjzr-Rnu-Mdg Reductase Inhibitors Swelling in joints ROS: General: feeling well Skin: denies other skin complaints EXAM: General: NAD, pleasant, cooperative Skin: Patient was asked to undress to the level of his comfort. Verbalized that the provider's preference is for the patient to remove all clothing and that the provider will not examine areas patient elects to keep covered. Patient's decision was to keep underwear on and have the following examined: skin of the scalp, hair, face, ears, neck, chest, abdomen, back, axillae, upper and lower extremities, hands, and feet. Buttocks and genitalia were not examined. Significant Skin Findings: A. Right lateral eyelid: 0.2-0.3cm hypertrophic scaly irregular pink papule. [Total: 1] B. Right orthodox x 1, right neck x 1, right forearm x 3, right dorsal hand x 4, left dorsal hand x 4,left forearm x 4, left helix x 2, left cheek x 4: 0.2-0.3cm scaly irregular pink papules. [Total: 23] C. Bilateral axillae: [place] mildly scaly patches. D. Well-healed hypopigmented scars as per skin history. ASSESSMENT/PLAN: A. Hypertrophic Actinic Keratosis - Explained etiology, natural history and premalignent potential of these lesions. - Discussed treatment with cryotherapy, including risks and benefits. - Patient elects to proceed with cryotherapy today. Procedure: Destruction of lesion(s) with cryotherapy. Number: 1 Location: as above Discussed procedure and expectations including risks (including risk of hypopigmentation) and benefits. Verbal consent obtained. Frozen with LN2, 15-30 second thaw time, TWICE. There were no complications; the patient tolerated the procedure well. Post-procedure expectations and wound care were reviewed. - Patient will RTC in 6 weeks for re-evaluation. Will plan to biopsy if lesion has not resolved. B. Actinic Keratoses - Explained etiology, natural history and premalignent potential of these lesions. - Discussed treatment with cryotherapy, including risks and benefits. - Patient elects to proceed with cryotherapy today. ?? Procedure: Destruction of lesions with cryotherapy (LN2). Location(s): As noted above. Number: 23 Discussed procedure and expectations, including risks (especially hypopigmentation) and benefits. Verbal consent obtained. Frozen with LN2, 15-30 second thaw time, twice. There were no complications; patient tolerated the procedure well. Post-procedure expectations and wound care reviewed. - Instructed patient to return to clinic for re-evaluation if lesions do not resolve with this treatment. C. Irritant Contact Dermatitis - Start Rx: triamcinolone 0.1% cream: Apply topically to affected areas on the axillae twice daily for up to 2 weeks. If rash recurs, use OTC hydrocortisone cream such as [id number]. D. H/O Melanoma, NMSC - NER; will continue to monitor. Follow up: RTC in 6 weeks for HAK (A above) follow up; sooner if needed. Appointment scheduled before exiting. Instructed patient to call with questions or concerns. I am documenting this encounter acting as the scribe for and in the presence of Dr. Meek: Phyllis Bridges and Joy Zendejas CMA I performed the above scribed service and agree with the accuracy of the documentation in this encounter. Sakshi Meek MD Physical Therapy Assistant of Dermatology Department of Surgery [facility] documented in this encounter Plan of Treatment Not on filedocumented as of this encounter Visit Diagnoses Diagnosis AK (actinic keratosis) Actinic keratosis Irritant contact dermatitis, unspecified trigger History of basal cell carcinoma Personal history of other malignant neop lasm of skin History of squamous cell carcinoma in si tu History of melanoma Personal history of malignant melanoma o f skin documented in this encounter Care Teams Relationship Management Lead Relationship Specialty Start Date End Date Aaliyah Felix APRN PCP - General Family Medicine 03/30/17 02/08/19 [facility] [place] [address] documented as of this encounter
--- OUTSIDE RECORDS SUMMARY | 2022-04-14 13:31 | XMS_ITS | Encounter Summary ---
:1940 Author Organization [facility] [place] [address] Care Team Providers Name Role Phone Aaliyah Felix APRN Primary Care Provider Encounter Details Date Type Department Care Team Description 04/12/2017 Telephone Cardiology at [facility] [place] [address] Social History Tobacco Use Types Packs/Day Years Used Date Never Smoker Smokeless Tobacco: Never Used Alcohol Use Standard Drinks/Week Comments No 0 (1 standard drink = 0.6 oz pure alcoho l) Sex Assigned at Date Recorded Not on file documented as of this encounter Miscellaneous Notes Telephone Encounter - Maki Whitlock - 04/12/2017 11:[address] Shook, I reached out to Mr. Ramirez regarding his nuclear test and follow up. I primarily spoke with his significant other, Alexandra. Reinier was present and identified himself with his date of . According to Alexandra, Reinier is going to Ortho today and should learn whether or not surgery will occur. If it is, she fears that the clinic date we were able to schedule with you is too far out. They will keep the date if it is appropriate, but ask for you to give verbal clearance if necessary. Pharmacological Nuclear Test 04-22-17 Dr. Shook follow up 05-04-17 Thank You, Maki documented in this encounter Plan of Treatment Not on filedocumented as of this encounter Visit Diagnoses Not on filedocumented in this encounter Care Teams Senior Software Systems Engineer Relationship Specialty Start Date End Date Aaliyah Felix APRN PCP - General Family Medicine 03/30/17 02/08/19 [address] [place] [address] documented as of this encounter
--- OUTSIDE RECORDS SUMMARY | 2022-04-14 13:31 | XMS_ITS | Encounter Summary ---
:1940 [place] [address] Care Team Providers Name Role Phone Kb Nguyen MD Primary Care Provider Reason for Visit Reason Comments Medication Refill Encounter Details Date Type Department Care Team Description 02/08/2017 Refill Cardiology at [facility] Alexis Shook MD Medication Refill [facility] [place] [address] CARDIOLOGY DEPT. [phone] [place], [place] [address] (Wo rk) Social History Tobacco Use Types Packs/Day Years Used Date Never Smoker Smokeless Tobacco: Never Used Alcohol Use Standard Drinks/Week Comments No 0 (1 standard drink = 0.6 oz pure alcoho l) Sex Assigned at Date Recorded Not on file documented as of this encounter Plan of Treatment Not on filedocumented as of this encounter Results (ABNORMAL) Basic Metabolic Panel (non-fasting) (03/30/2017 9:27 AM EDT) athologist Signature Glucose Lvl 134 65 - 199 [facility] mg/dL [facility] Comment: Diabetes: >=200 mg/dL plus symp toms BUN 26 (H) 10 - 20 mg/dL [facility] Creatinine 1.62 (H) 0.80 - 1.50 mg/dL [facility] Comment: Please note that the pediatric reference intervals supplied above were not validated at [facility]. Results from pediatri c patients should be interpreted in conjunction to the patient's age, height and muscle mass. Sodium 140 135 - 145 mmol/L [facility] Potassium 4.3 3.5 - 5.0 mmol/L [facility] Comment: Please note: ??Patients with WBC >100,00 0 may have falsely elevated Potassium levels. ??For accurate Potassium quantif ication in these patients send serum separator tube (gold top) for subsequent determinations. ??Contact the Clinical Chemistry Laboratory if there are any qu estions. Chloride 105 98 - 107 mmol/L [facility] CO2 21 (L) 22 - 31 mmol/L [facility] Anion Gap 14 5 - 15 mmol/L [facility] Calcium 9.0 8.5 - 10.5 mg/dL [facility] Estimated GFR 42 (L) >=60 [facility] Comment: This estimated GFR (eGFR) value was calc ulated using the MDRD equation which has been validated on patients between t he ages of 18 and 70. The MDRD should not be used to assess kidney function in patients < 18 years of age or in patients with extremes of body mass, or in patients with acute kidney failure. This value should be multiplied by 1.2 f or patients. For further information please copy and past e the following links into your internet browser. [email or web address] [email or web address] Specimen Anatomical Collection Method Collection Time Receive d Time (Source) Location / / Volume Laterality Blood specimen 03/30/2017 9:27 AM 017 9:34 (specimen) EDT AM EDT Resulting Agency Comment Spec In Lab Alexis Shook MD CHEMISTRY ORDERABLES Performing Organization Address City/State/[place] [address] documented in this encounter Visit Diagnoses Diagnosis Chronic atrial fibrillation Atrial fibrillation Essential hypertension Unspecified essential hypertension Left ventricular hypertrophy Cardiomegaly documented in this encounter Care Teams Music Publisher Relationship Specialty Start Date End Date Kb Nguyen MD PCP - General 12/01/16 03/29/17 [address] [place] [address] documented as of this encounter
--- OUTSIDE RECORDS SUMMARY | 2022-04-14 13:31 | XMS_ITS | Encounter Summary ---
:1940 Author Organization [facility] Address [facility] [place] [address] Care Team Providers Name Role Phone Aaliyah Felix APRN Primary Care Provider Encounter Details Date Type Department Care Team Description 05/06/2017 Office Visit Cardiology at [facility] Bouchra, Rigoberto ASCVD [facility] MD Alexis (arteriosclerotic [facility] cardiovascular disease) [place], [place] CENTER [address] CARDIOLOGY DEPT. [phone] [place] [id number] Social History Tobacco Use Types Packs/Day Years Used Date Never Smoker Smokeless Tobacco: Never Used Alcohol Use Standard Drinks/Week Comments No 0 (1 standard drink = 0.6 oz pure alcoho l) Sex Assigned at Date Recorded Not on file documented as of this encounter Last Filed Vital Signs Vital Sign Reading Time Taken Comments Blood Pressure 112/69 05/06/2017 8:02 AM EDT Pulse 64 05/06/2017 8:02 AM EDT Temperature - - Respiratory Rate - - Oxygen Saturation 95% 05/06/2017 8:02 AM EDT Inhaled Oxygen Concentration - - Weight 106.6 kg (235 lb) 05/06/2017 8:02 AM EDT Height 179.1 cm (5' 10.5) 05/06/2017 8:02 AM EDT Body Mass Index 33.24 05/06/2017 8:02 AM EDT documented in this encounter Progress Notes Alexis Shook MD - 05/06/2017 8:20 AM EDT Images from the original note were not included. [facility] [address] [place], [place] [address] CARDIOLOGY OUTPATIENT FOLLOW-UP NOTE Reinier Ramirez [id number] PCP: Aaliyah Felix APRN 05/06/2017 PRIMARY CARE PROVIDER: Aaliyah Felix APRN PROBLEM LIST: Patient Active Problem List Diagnosis ??? Rupture of right quadriceps tendon ??? Rupture of left quadriceps tendon ??? Primary osteoarthritis of both knees ??? Chronic pain of both knees ??? Possible ASCVD (arteriosclerotic cardiovascular disease) ?? Inferior wall motion abnormalities on echo's at [facility] 02/15/14 and 03/30/17 ?? Nuclear stress test at [place] [facility] 10/26/16 showing normal perfusion ?? Cardia Edmund March 30, 2017 showing normal left ventricular size, ejection fraction 60%, andwall motion abnormalities with inferior hypokinesia. ?? Regadenoson sestamibi [facility] April 22, 2017 showing normal perfusion; normal wall thickening ??? MICK (obstructive sleep apnea) ??? Morbid obesity ??? Bilateral leg weakness ??? Chronic atrial fibrillation ?? Diagnosed 11/2013, without symptoms during visit with teaching young, ?? Asymptomatic ?? [id number] score = 2 (age and HTN) ??? Hypertension ??? Diverticulosis ??? Left ventricular hypertrophy -TTE 02/17/2014 shows eccentric left ventricular enlargement (moderate LV dilation with LVEDD 6.3cm, normal LVEF 55%, no concentric LVH) ??? AK (actinic keratosis) ??? History of melanoma MEDICATIONS: Current Outpatient Prescriptions Medication Sig Dispense Refill ??? finasteride (PROSCAR) 5 mg Tablet Take 5 mg by mouth daily. ??? XARELTO 20 mg Tablet TAKE 1 TABLET DAILY 90 tablet 3 ??? atenolol (TENORMIN) 25 mg Tablet TAKE 1 TABLET DAILY FOR ATRIAL FIBRILLATION 90 tablet 3 ??? simvastatin (ZOCOR) 10 mg Tablet TAKE 1 TABLET NIGHTLY 90 tablet 3 ??? losartan (COZAAR) 50 mg Tablet TAKE 1 TABLET DAILY 90 tablet 3 No current facility-administered medications for this visit. SUBJECTIVE: 77-year-old man comes for follow-up visit. He has chronic atrial fibrillation. He has had some unexplained inferior hypokinesia on an echocardiogram including one associated with his last visit. He was contemplating some orthopedic surgery. Accordingly, I recommended a nuclear stress test to explore for underlying coronary artery disease. In fact, he has not had typical symptoms of any cardiac ischemia but the possibility of underlying coronary artery disease was nevertheless a concern. He comes today indicating that he continues to feel okay from the perspective of his heart. He has no awareness of his atrial fibrillation. He is reporting no bleeding problems. OBJECTIVE: Vital Signs: BP 112/69 Pulse 64 Ht 179.1 cm (5' 10.5) Wt (!) 106.6 kg (235 lb) SpO2 95% BMI 33.24 kg/m2 Physical Exam: On exam he appeared in no acute distress. He was somewhat slow moving. His vital signs are documented above. He had no JVD. His lungs were clear. His heart exam revealed an irregularly irregular rhythm at a controlled rate. He had no murmurs, rubs, or gallops. His abdomen was soft and nontender. Nuclear stress test: Performed April 22, 2017, this showed normal perfusion. ASSESSMENT: 1. Unexplained inferior hypokinesia on multiple echocardiograms 2. Chronic atrial fibrillation: He is doing well in this regard. PLAN: 1. Continue current medications 2. Cardiology follow-up upon his return from [place] next December documented in this encounter Plan of Treatment Not on filedocumented as of this encounter Visit Diagnoses Diagnosis Possible ASCVD (arteriosclerotic cardiov ascular disease) Unspecified cardiovascular disease documented in this encounter Care Teams Review Consultant Relationship Specialty Start Date End Date Aaliyah Felix APRN PCP - General Family Medicine 03/30/17 02/08/19 [place] [address] documented as of this encounter
--- OUTSIDE RECORDS SUMMARY | 2022-04-14 13:31 | XMS_ITS | Encounter Summary ---
:1940 Author Organization [facility] Address [address] [place] [address] Care Team Providers Name Role Phone Aaliyah Felix APRN Primary Care Provider Encounter Details Date Type Department Care Team Description 04/01/2018 Telephone Cardiology at [facility] Syed Garcia MD [facility] [place] [address] CARDIOLOGY DEPT [phone] [place], [place] [address] (Wo rk) Social History Tobacco Use Types Packs/Day Years Used Date Never Smoker Smokeless Tobacco: Never Used Alcohol Use Standard Drinks/Week Comments No 0 (1 standard drink = 0.6 oz pure alcoho l) Sex Assigned at Date Recorded Not on file documented as of this encounter Miscellaneous Notes Telephone Encounter - Syed Garcia - 04/01/2018 5:46 PM EDT Spoke with patient's . She states that he saw his PCP for a cough and phlegm production. They sent off labs and sent him for a CXR. They prescribed him furosemide. Patient's was calling to askif furosemide was contraindicated in a patient with atrial fibrillation. I informed her that we often have patients in atrial fibrillation who are on furosemide for volume overload. I could not commenton the need for lasix since I had no data on his condition, but stated there was certainly no contraindication to the lasix. Can we set him up for follow-up with Dr. Shook. Syed Garcia MD [employer] [id number] documented in this encounter Plan of Treatment Not on filedocumented as of this encounter Visit Diagnoses Not on filedocumented in this encounter Care Teams Risk Consultant Relationship Specialty Start Date End Date Aaliyah Felix APRN PCP - General Family Medicine 03/30/17 02/08/19 [place] [address] documented as of this encounter
--- OUTSIDE RECORDS SUMMARY | 2022-04-14 13:31 | XMS_ITS | Encounter Summary ---
:1940 Author Organization [facility] Address [facility] [address] [place] [address] Care Team Providers Name Role Phone Aaliyah Felix APRN Primary Care Provider Reason for Visit Reason Comments Follow-up AKs Encounter Details Date Type Department Care Team Description 04/05/2018 Office Visit Dermatology at Sakshi Jewell [place] (actinic keratosis); Kelly Bridges MD [place] (seborrheic keratosis); [address] [place] [address] [phone] [facility] [place], [place] [address] Social History Tobacco Use Types Packs/Day Years Used Date Never Smoker Smokeless Tobacco: Never Used Alcohol Use Standard Drinks/Week Comments No 0 (1 standard drink = 0.6 oz pure alcoho l) Sex Assigned at Date Recorded Not on file documented as of this encounter Progress Notes Sakshi Meek MD - 04/05/2018 11:15 AM EDT DERMATOLOGY ESTABLISHED PATIENT CLINIC NOTE Date of service: 04/05/2018 Reinier Ramirez : 1940 Provider: Sakshi Meek MD Chief Complaint Patient presents with ??? Follow-up AKs SKIN HISTORY: MELANOMA PATHOLOGY REPORT: 1. ??Melanoma-right forearm-2010, negative lymph nodes. - Pt brought path report from re-excision of lesion on right forearm, but no original biopsy: Moderately atypical junctional Melanocytic proliferation residual. No evidence of Melanoma Margins are free ? 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 04/14/2016-??left preauricular-BCC, NODULAR TYPE, transected -ED&C HPI Reinier Ramirez is a 77 y.o. year old male, established patient last seen by me on 02/18/2018. Here today for an AK follow up on his face and hands. Most of the thicker lesions have resolved. No tender papules. MEDS: Current Outpatient Prescriptions Medication Sig Dispense Refill ??? atenolol (TENORMIN) 25 mg Tablet Take 1 tablet by mouth daily. 90 tablet 3 ??? losartan (COZAAR) 50 mg Tablet Take 1 tablet by mouth [...] this visit. ADR: Allergies Allergen Reactions ??? Nphlpnl-Osi-Oww Reductase Inhibitors Swelling in joints ROS General: feeling well Skin: denies other skin complaints EXAM General: NAD, pleasant, cooperative Skin: Patient was asked to disrobe to the level of their comfort. Examination of skin from the waistup was performed. This includes examination of the skin of the face, ears, neck, chest, axillae, left and right upper extremities, hands, back, and abdomen. Significant skin findings: A. Right forehead x 1, left cheek x 1, right lateral brow x 2, right forearm x 1 , right dorsal handx 3: 0.2-0.3cm scaly irregular pink papules B. Trunk: Multiple 0.4-0.6cm brown papules with waxy, stuck-on appearance. Milia-like cysts, comedone-like openings and/or fissuring on dermoscopy. C. Right forearm: well healed scar s/p excision. No LAD ASSESSMENT/PLAN: A. Actinic Keratosis - I discussed this condition with the patient and explored therapeutic options. I recommended this be treated with LN2, patient is in agreement to this treatment plan. Instructed to call if areas do not resolve as expected or if problems arise. If lesions fail to resolve, further work-up may be needed. Procedure Note: Procedure: Destruction of lesion(s) with cryotherapy. Number: 8 Location: as above Discussed procedure and expectations including risks (including risk of hypopigmentation) and benefits. Verbal consent obtained. Frozen with LN2, 15-30 second thaw time, TWICE. There were no complications; the patient tolerated the procedure well. Post-procedure expectations and wound care were reviewed. B. Seborrheic Keratosis - Etiology discussed - Patient reassured lesions are benign in nature C. History of melanoma -??No cervical, supraclavicular or axillary lymphadenopathy noted. -??No evidence??of recurrence.?? -??Continue to monitor.?? He will follow up in [place] in 3 months, and again here in the summer Follow up: Summer 2018 for a full skin exam, sooner if needed. Instructed to call with questions or concerns. I am documenting this encounter acting as the scribe for and in the presence of Dr. Meek: ELENA EVERETT LPN and Mayuri Carpenter I performed the above scribed service and agree with the accuracy of the documentation in this encounter. Sakshi Meek MD Tube Knitter of Dermatology, Department of Surgery [facility] documented in this encounter Plan of Treatment Not on filedocumented as of this encounter Visit Diagnoses Diagnosis [place] (actinic keratosis) Actinic keratosis [place] (seborrheic keratosis) Other seborrheic keratosis History of melanoma Personal history of malignant melanoma o f skin documented in this encounter Care Teams Ski Patrol Relationship Specialty Start Date End Date Aaliyah Felix APRN PCP - General Family Medicine 03/30/17 02/08/19 [place] [id number] documented as of this encounter
--- OUTSIDE RECORDS SUMMARY | 2022-04-14 13:31 | XMS_ITS | Encounter Summary ---
:1940 Author Organization [facility] [place] [address] Care Team Providers Name Role Phone IsidroAaliyah CHRISTELLE Primary Care Provider Reason for Referral Diagnostic Test (Routine) - Closed Specialty Diagnoses / Procedures Referred By Contact Refer red To Contact Radiology Diagnoses COTTON (dyspnea on exertion) Abnormal echocardiogram Alexis Shook MD [facility] Rad Nuclear Med Procedures NM Myocardial Perfusion Scan Pharmacologic [facility] CARDIOLOGY DEPT. [place], [place] [id number] [place] [phone] Fax: Referral ID Status Reason Start Date Expiration Date Visits V isits Requested Authorized [id number] Closed Specialty 04/07/2017 04/07/2018 1 1 Service Requested Reason for Visit Diagnostic Test (Routine) - Closed Specialty Diagnoses / Procedures Referred By Contact Refer red To Contact Radiology Diagnoses COTTON (dyspnea on exertion) Abnormal echocardiogram Alexis Shook MD [facility] Rad Nuclear Med Procedures NM Myocardial Perfusion Scan Pharmacologic [facility] [place] [address] [place] [address] Fax: Referral ID Status Reason Start Date Expiration Date Visits V isits Requested Authorized [id number] Closed Specialty 04/07/2017 04/07/2018 1 1 Service Requested Encounter Details Date Type Department Care Team Description 04/22/2017 Hospital Encounter Nuclear Medicine at [facility] (dyspnea on exertion); Mallory Espinoza MD Abnormal echocardiogram [facility] [place] C[place]IOLOG[place] [address] DEPT. [phone] [place] [address] Social History Tobacco Use Types Packs/Day Years [...] Name Priority Date/Time Associated Diagnosis Comme nts NM PHARMACOLOGIC Routine 04/22/2017 12:50 COTTON (dyspnea on Resu lts for this STRESS AND REST PM EDT exertion) procedure are in MYOCARDIAL PERFUSION Abnormal the res ults echocardiogram section. documented in this encounter Results NM Myocardial Perfusion Scan Pharmacologic (04/22/2017 12:50 PM EDT) Anatomical Region Laterality Modality Nuclear Medicine Specimen (Source) Anatomical Location Collection Method / Collectio n Time Received Time / Laterality Volume Impressions 04/22/2017 4:21 PM EDT No ischemia or scar and normal LV function. I have personally reviewed the image(s) and the residents interpretation and agree with the findings, Tez Valentin at 04/22/2017 4:21 PM Narrative 04/22/2017 4:21 PM EDT EXAMINATION: NM MYOCARDIAL PERFUSION SCAN PHARMACOLOGIC CLINICAL HISTORY: Pre-op for orthopedic surgery; echo showing mid and basilar inferior hypokinesia; ? Cardiac ischemia TECHNIQUE: During rest, 8.2 mCi of techn etium-99m sestamibi was administered intravenously. Approximately 20 minutes later, SPECT images of the heart were obtained with reconstruction in the shor t, vertical long and horizontal long axis. The patient then received regadenoson in travenously at a dose of 0.4 mg. 20 seconds later, 25.8 mCi of technetium-99 m sestamibi was administered intravenously. Images of the heart were then again obtained with SPECT reconstruction. A low-dose CT scan was acquired for the purpose of attenuation correction COMPARISON: None FINDINGS: No fixed or reversible perfusion defects are present. Functional analysis: Myocardial function: There is normal wal l thickening and wall motion. Left ventricular ejection fraction: 59 % (normal greater than than 50%). Incidental CT findings: Coronary calcifi cations Procedure Note Tez Valentin MD - 04/22/2017Formatti ng of this note might be different from the original. EXAMINATION: NM MYOCARDIAL PERFUSION SCA N PHARMACOLOGIC CLINICAL HISTORY: Pre-op for orthopedic surgery; echo showing mid and basilar inferior hypokinesia; ? Cardiac ischemia TECHNIQUE: During rest, 8.2 mCi of techn etium-99m sestamibi was administered intravenously. Approximately 20 minutes later, SPECT images of the heart were obtained with reconstruction in the shor t, vertical long and horizontal long axis. The patient then received regadenoson in travenously at a dose of 0.4 mg. 20 seconds later, 25.8 mCi of technetium-99 m sestamibi was administered intravenously. Images of the heart were then again obtained with SPECT reconstruction. A low-dose CT scan was acquired for the purpose of attenuation correction COMPARISON: None FINDINGS: No fixed or reversible perfusion defects are present. Functional analysis: Myocardial function: There is normal wal l thickening and wall motion. Left ventricular ejection fraction: 59 % (normal greater than than 50%). Incidental CT findings: Coronary calcifi cations IMPRESSION No ischemia or scar and normal LV functi on. I have personally reviewed the image(s) and the residents interpretation and agree with the findings, Tez Valentin at 04/22/2017 4:21 PM Alexis Shook MD IMG NM ORDERABLES documented in this encounter Visit Diagnoses Diagnosis COTTON (dyspnea on exertion) Other dyspnea and respiratory abnormalit y Abnormal echocardiogram Nonspecific (abnormal) findings on radio logical and other examination of other intrathoracic organs documented in this encounter Administered Medications Inactive Administered Medications - up to 3 most recent administrations Medication Order MAR Action Action Date Dose Rate Site technetium (Tc-99m) sestamibi Given 04/22/2017 9:50 AM EDT 8.2 m Ci injection 8.2 mCi 8.2 mCi, Intravenous, ONCE PRN, 1 dose, Starting on Diane 04/22/17 at 0950, Until Diane 04/22/17 at 0950, Per Protocol, RACF, Routine documented in this encounter Care Teams Chiropractic Neurologist Relationship Specialty Start Date End Date Aaliyah Felix APRN PCP - General Family Medicine 03/30/17 02/08/19 [address] [facility] [place] [address] documented as of this encounter
--- OUTSIDE RECORDS SUMMARY | 2022-04-14 13:31 | XMS_ITS | Encounter Summary ---
:1940 Author Organization [facility] [place] [address] Care Team Providers Name Role Phone Kb Nguyen MD Primary Care Provider Encounter Details Date Type Department Care Team Description 03/01/2017 Hospital Encounter Radiology Library at [facility], Marry Noguera MD Pain [facility] [place] [address] [place] [address] [phone] (Wo rk) Social History Tobacco Use Types Packs/Day Years Used Date Never Smoker Smokeless Tobacco: Never Used Alcohol Use Standard Drinks/Week Comments No 0 (1 standard drink = 0.6 oz pure alcoho l) Sex Assigned at Date Recorded Not on file documented as of this encounter Medications at Time of Discharge Medication Sig Dispensed Refills Start Date End Date XARELTO 20 mg TAKE 1 TABLET DAILY [...] atrial fibrillation, Essential hypertension, Left ventricular hypertrophy meclizine (ANTIVERT) Take 25 mg by mouth 0 03/30/2017 25 mg Tablet daily. aspirin 81 mg chewable Take 81 mg by mouth 0 04/12/2017 tablet daily. documented as of this encounter Plan of Treatment Not on filedocumented as of this encounter Procedures Procedure Name Priority Date/Time Associated Diagnosis Comme nts FILM LIBRARY Routine 03/01/2017 12:00 AM Pain Results for this STORAGE ONLY DX EDT procedure ar e in KNEE the results section. documented in this encounter Results Film Library- Storage Only DX Knee (03/01/2017 12:00 AM EDT) Specimen (Source) Anatomical Location Collection Method / Collectio n Time Received Time / Laterality Volume Narrative [facility] - 03/02/2017 4:33 PM EDT This exam is for storage only and is aut o-finalizing. Bola Angeles MD IMG FILM LIBRARY ORDERABLES Performing Organization Address City/State/ZIP Code Phon e Number [place], [place] documented in this encounter Visit Diagnoses Diagnosis Pain Generalized pain documented in this encounter Care Teams Burlap Bag Sewer Relationship Specialty Start Date End Date Kb Nguyen MD PCP - General 12/01/16 03/29/[address] [place] [address] documented as of this encounter
--- OUTSIDE RECORDS SUMMARY | 2022-04-14 13:31 | XMS_ITS | Encounter Summary ---
:1940 Author Organization [facility] Address [facility] [place] [address] Care Team Providers Name Role Phone IsidroAaliyah CHRISTELLE Primary Care Provider Reason for Visit Reason Comments Skin Check Encounter Details Date Type Department Care Team Description 05/04/2017 Office Visit Dermatology at [facility] story of melanoma; Kelly Bridges MD History of basal cell carcinoma; [address] [place] History of squamous cell car cinoma in situ; [place] [address] [place] (actinic keratosis) [phone] [facility] [place], [place] [address] Social History Tobacco Use Types Packs/Day Years Used Date Never Smoker Smokeless Tobacco: Never Used Alcohol Use Standard Drinks/Week Comments No 0 (1 standard drink = 0.6 oz pure alcoho l) Sex Assigned at Date Recorded Not on file documented as of this encounter Patient Instructions Patient InstructionsElena Everett LPN - 05/04/2017 11:30 AM EDT Actinic Keratoses You have been diagnosed today with Actinic Keratosis (AK). These dry, scaly patches are considered the earliest stage in the development of skin cancer. In rare cases, an AK can progress to skin cancer. Because of this risk, AKs are usually treated. You were treated today with Liquid Nitrogen. This is the most common treatment for AKs. Liquid nitrogen is extremely cold, and freezes the surface of the skin, causing the lesion to flake off. Treatment with liquid nitrogen can be uncomfortable, but discomfort should subside after a couple of hours. The area treated will look red and irritated, and it may blister up or turn dark, then fall off. This is normal! You do not need any special treatment for the area, but you may find cold compresses and/or a light application of Vaseline soothing. For best results, do not rub or pick at the healing lesion. Expected healing time is 3-4 weeks. Please contact the Dermatology clinic at [phone] if the lesion has not fully resolved after 6 weeks. documented in this encounter Progress Notes Sakshi Meek MD - 05/04/2017 11:30 AM EDT DERMATOLOGY ESTABLISHED PATIENT CLINIC NOTE Date of service: 05/04/2017 Reinier Ramirez : 1940 Provider: Sakshi Meek MD Chief Complaint Patient presents with ??? Skin Check SKIN HISTORY: MELANOMA PATHOLOGY REPORT: 1. ??Melanoma-right forearm-2010, negative lymph nodes. - Pt brought path report from re-excision of lesion on right forearm, but no original biopsy: Moderately atypical junctional Melanocytic proliferation residual. No evidence of Melanoma Margins are free ? 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 04/14/2016- left preauricular-BCC, NODULAR TYPE, transected -ED&C 02/09/17 Skin, left nasal ala, shave biopsy: - Basal cell carcinoma, nodular and infiltrative (micronodular) type, present at the ??peripheral edge and base of the specimen -Mohs with Dr. Kidd on 04/27/17 HPI Reinier Ramirez is a 77 y.o. year old male, established patient last seen by me on 02/09/2017. Here today for a full skin examination. Tolerated Mohs well from on the left nasal ala. Patient reports a rough area on his left lateral neck, unsure when first noticed, asymptomatic. MEDS: Current Outpatient Prescriptions Medication Sig Dispense [...] 1 TABLET DAILY 90 tablet 3 ??? cefadroxil (DURICEF) 500 mg Capsule Take 1 capsule by mouth 2 times daily for 7 days. (Patient not taking: Reported on 05/04/2017) 14 capsule 0 No current facility-administered medications for this visit. ADR: Allergies Allergen Reactions ??? Tyodaro-Pky-Owy Reductase Inhibitors Swelling in joints ROS General: feeling well Skin: denies other skin complaints EXAM General: NAD, pleasant, cooperative Skin: A full skin examination was performed. This includes the head, neck, face and scalp including behind the ears, chest, abdomen, back, and axillae, as well as the arms, hands, palms, fingers, legs,feet, toes and soles. Buttocks and breasts were also examined with patient consent. Genitalia were not examined. Significant skin findings: A. Right forearm: well healed scar s/p excision. B. Left nasal ala, right clavicle and left preauricular: healing surgical site s/p Mohs and ED&C. C. Right forearm: well healed scar s/p biopsy. D. Left neck x1, right cheek x3, right cheondoism x1, left forearm x5, left dorsal hand x1, right dorsalhand x3, right forearm x4: 0.2-0.3cm scaly irregular pink papules. ASSESSMENT/PLAN: A. History of melanoma - No cervical, supraclavicular or axillary lymphadenopathy noted. - No evidence of recurrence. - Continue to monitor. B. History of BCC - s/p recent Mohs, suture removal planned for later today on ala, other sites show no evidence of recurrence. - Continue to monitor. C. History of SCC in situ - No evidence of recurrence. - Continue to monitor. D. Actinic keratosis - Discussed premalignent potential of these lesions. - Discussed that a surgical procedure would likely be needed if these were to progress to skin cancer. - Shared decision to proceed with LN2 treatment at this time: Procedure Note: Procedure: Destruction of lesions with cryotherapy. Number: 18 Location: as above Discussed procedure and expectations including risks (including risk of hypopigmentation) and benefits. Verbal consent obtained. Frozen with LN2, 15-30 second thaw time, TWICE. There were no complications; the patient tolerated the procedure well. Post-procedure expectations and wound care were reviewed. RTC in 6 months for a full skin exam, sooner if needed. Note sent to scheduling executive secretary to call and schedule patient. Instructed to call if problems arise. I am documenting this encounter acting as the scribe for and in the presence of Dr. Meek: ELENA EVERETT LPN and Mena Pack, Clinical Scribe I performed the above scribed service and agree with the accuracy of the documentation in this encounter. Sakshi Meek MD Linotype Operator of Dermatology, Department of Real Estate OfficerLinotype Operatorhospitality workers (Dermatopathology) [facility] documented in this encounter Plan of Treatment Not on filedocumented as of this encounter Visit Diagnoses Diagnosis History of melanoma Personal history of malignant melanoma o f skin History of basal cell carcinoma Personal history of other malignant neop lasm of skin History of squamous cell carcinoma [place] (actinic keratosis) Actinic keratosis documented in this encounter Care Teams Shipper Receiver Relationship Specialty Start Date End Date Aaliyah Felix APRN PCP - General Family Medicine 03/30/17 02/08/19 [place] [address] documented as of this encounter
--- OUTSIDE RECORDS SUMMARY | 2022-04-14 13:31 | XMS_ITS | Encounter Summary ---
:1940 [place] [address] Care Team Providers Name Role Phone Aaliyah Felix APRN Primary Care Provider Reason for Visit Reason Onset Date Comments Medication Refill 06/01/2018 Encounter Details Date Type Department Care Team Description 06/01/2018 Refill Cardiology at [facility] Alexis Shook MD Medication Refill [facility] [place] [address] CARDIOLOGY DEPT. [phone] [place], [place] [address] (Wo rk) Social History Tobacco [...] Cardiomegaly documented in this encounter Care Teams Brake Assembler Relationship Specialty Start Date End Date Aaliyah Felix APRN PCP - General Family Medicine 03/30/17 02/08/19 [place] [address] documented as of this encounter
--- OUTSIDE RECORDS SUMMARY | 2022-04-14 13:31 | XMS_ITS | Encounter Summary ---
:1940 Author Organization [facility] Address [address] [place] [address] Care Team Providers Name Role Phone Aaliyah Felix APRN Primary Care Provider Reason for Visit Reason Comments Bilateral Knee Pain Bilateral quad tendon repair s Consultation (Routine) - Closed Specialty Diagnoses / Procedures Referred By Contact Refer red To Contact Orthopaedics Diagnoses LEFT KNEE ? bilat quad tendon reconstructons Mason Mcconnell MD Moschetti, Wayne E, MD Procedures [address] [place], [place] [address] [place] [address] Phone: Fax: Referral ID Status Reason Start Date Expiration Date Visits V isits Requested Authorized [id number] Closed Consult, 03/09/2017 03/09/2018 1 1 Test & Treat Encounter Details Date Type Department Care Team Description 04/12/2017 Office Visit Orthopaedics at [facility] [place] Devan Leonard Quadriceps tendon rupture, l eft, initial encounter; [facility] MD Alayna Debility; [facility] Pain of left lower extremity ; [place] [address] [address] Rupture of right quadriceps tendon, sequ scott; [phone] ORTHOPAEDIC Rupture of left quadriceps tendon, sequela; SURGERY Primary osteoarthritis of both knees; [place], [place] Chronic pain of both knees; [id number] Bilateral leg weakness Social History Tobacco Use Types Packs/Day Years Used Date Never Smoker Smokeless Tobacco: Never Used Alcohol Use Standard Drinks/Week Comments No 0 (1 standard drink = 0.6 oz pure alcoho l) Sex Assigned at Date Recorded Not on file documented as of this encounter Last Filed Vital Signs Vital Sign Reading Time Taken Comments Blood Pressure 105/62 04/12/2017 2:07 PM EDT Pulse 89 04/12/2017 2:07 PM EDT Temperature - - Respiratory Rate - - Oxygen Saturation - - Inhaled Oxygen Concentration - - Weight 117 kg (258 lb) 04/12/2017 2:07 PM EDT verbal Height 179.1 cm (5' 10.5) 04/12/2017 2:07 PM EDT verba l Body Mass Index 36.5 04/12/2017 2:07 PM EDT documented in this encounter Progress Notes Devan Leonard MD - 04/12/2017 2:20 PM EDT Images from the original note were not included. Department of Orthopaedics Division of Adult Joint Reconstructive Surgery April 12, 2017 I had the pleasure of evaluating Reinier Ramirez in clinic in conjunction with one of my associate providers. In brief this pleasant 76-year-old gentleman has a complicated history in regards to his bilateral knees. He has had quadriceps ruptures bilaterally. Rm sometime in 2001. At that point he was treatedwith primary repair I believe in [place]. He then several years later re-ruptured and had them re-repaired. He recently saw Dr. Mcconnell in [facility] who discussed intervention with him and dueto the complexity of the patient's case he essentially referred the patient to me. The patient also has severe bilateral knee arthritis and is undergone injections in the past with limited relief. His predominant complaint is difficulty weightbearing and weakness. He uses a cane to ambulate. On the rig ht side his range of motion is about 10-120. He has a 10?? extensor lag and weakness with quad function. His left knee is markedly worse. He is approximately a 50?? extensor lag and can flex to 120. Hestates he fell about a month ago and since then the left is been much worse. He's got a large palpable defect on the superior pole of his patella. His x-rays demonstrate chronic changes consistent withhis quad tendon ruptures. On the left he's got patella Baha and tilting consistent with a quad rupture. We will lengthy discussion about the various treatment options. At this point he's failed to primary quad tendon repairs. I think the only viable option would be allograft reconstruction. Using calcaneus bone block with an Achilles tendon to try to reinforce the quad tendon likely through drill holes in the patella. I outlined the risks associated with infection using allograft tendon. I also explained I would not consider doing a total knee replacement at the same time to the higher risk of infection and potential stiffness due to the need for immobilization postoperatively. I would start on the left side due to the more limiting function of this knee and consider the right side depending on how the left side went. The patient like to think things over. I emphasized it probably makes sense todo this sooner than later because of continuing quad atrophy as the patient was contemplating going to [place] for the winter and potentially doing this sometime in the spring. I expressed concern thatif there is significant quad atrophy there may be nothing to attached the allograft tendon two. This point he would like to think things over and if he like to proceed with surgery he'll be in contact with my surgical instrument maker. All questions were answered Devan Leonard MD, MS Chief, Division of Adult Reconstructive [employer] of Orthopaedics Department of Orthopaedics [facility] [place] [id number] Socrates Roy PA - 04/12/2017 2:20 PM EDT Images from the original note were not included. Department of Orthopaedics Division of Adult Joint Reconstructive Surgery CHIEF COMPLAINT: Chief Complaint Patient presents with ??? Bilateral Knee Pain Bilateral quad tendon repairs ARTHROPLASTY HISTORY/PREVIOUS KNEE SURGERY: 1. Bilateral quad tendon repair 2001 [facility] 2. Bilateral re-repair quad tendon approximately 2012 [facility] Reinier was referred from Mason Mcconnell MD [address] [place] [address] I.D.: Reinier Ramirez is a 76 y.o. year old male being seen today to discuss his bilateral knee pain. he notes the left knee is more symptomatic. His history and physical exam were reviewed in detail. He states the knee has been symptomatic for years. The pain is predominantly global. There was inciting trauma/injury. He does not describe hip pain. He feels that his knee pain is keeping him from walking with our assistive devices and he is falling due to the legs giving out. Aggravating factors include getting up from a chair. Alleviating factors include avoiding painful activities. Reinier has pain at night.. He can weight bear on both legs and does use assistive devices. He has tried physical therapy. Previous treatments tried: - Injections into the joint: No - NSAIDs/Pain meds: medication not used - Brace treatment: No Mr. Ramirez denies fevers/chills/headache/chest pain/shortness of breath/abdominal pain/nausea or vomiting/weight changes He does not endorse a history of DVT/PE or clotting disorder. QUESTIONNAIRE RESPONSES: General Health, Prior Treatments, PreExisting Condition, Health Habits, About You 04/12/2017 PROMIS-10 General Health Good PROMIS-10 Quality of Life Excellent PROMIS-10 Physical Health Good PROMIS-10 Mental Health Excellent PROMIS-10 Social Activity Excellent PROMIS-10 Everyday Activities A little PROMIS-10 Pain 5 PROMIS-10 Fatigue Moderate PROMIS-10 Social Roles Excellent PROMIS-10 Anxious or Depressed Never PROMIS PHYSICAL SCORE (range 16-68) 37.4 PROMIS MENTAL SCORE (range 21-68) 67.6 Treatments Tried Walking aids (e.g.cane, walker) Prior Surgery quads 12 1999 [facility] Scores 50.01 TKA Grade 4 Alzheimers or dementia No Cirrohosis or liver disease No HIV/AIDS No Pain in more than one joint in legs Yes Back or neck pain Yes Heart attack No Heart failure No Unclog/bypass leg arteries No Stroke, blood clot, TIA No Asthma No Emphysema, chronic bronchities, or COPD No Stomach ulcers/peptic ulcer disease No Diabetes No Poor kidney function No Rheumatic condtions No Cancer Yes Cancer spread No Leukemia or polycythemia vera No Lymphoma No Weight (lbs) 235 Height (feet) 5 feet Height (Inches) 10 BMI 33.71 (Obese) Ever used tobacco products No Ever used alcoholic beverages No Live Alone No Marital situation Schooling More than 4 - year college Combined Household Income $15,000 to less than $20,000 # People Supported 2 Iranian, , No, not Iranian// Race White Health Literacy Extremely Currently working No Not working because: Retired Orthopeadics [facility] [place] Response 04/12/2017 KOOS JR Scores 50.01 Spine [facility] [place] Response 04/12/2017 KO[facility] JR Scores 50.01 ALLERGIES Allergies Allergen Reactions ??? Monjfne-Rkr-Sjd Reductase Inhibitors Swelling in joints Allergies to metals: no. SOCIAL HISTORY: reports that he has never smoked. He has never used smokeless tobacco. He reports that he does not drink alcohol or use illicit drugs. SIGNIFICANT MEDICAL COMORBIDITIES: Patient Active Problem List Diagnosis Code ??? [...] pain of both knees M25.561, M25.562, G89.29 VITALS: BP Readings from Last 1 Encounters: 04/12/17 105/62 Pulse Readings from Last 1 Encounters: 04/12/17 89 Height: 179.1 cm (5' 10.5) (verbal) Weight - Scale: (!) 117 kg (258 lb) (verbal) Body mass index is 36.5 kg/(m^2). PHYSICAL EXAM: Constitution: Reinier Ramirez sits in the clinic today alert, appears stated age and cooperative. Heis alert and oriented. I have made the following determinations: Knee Exam: Right Prior surgery on this joint: Yes Knee ROM: Extension:0 Flexion: 115 Alignment: 0-4 degrees Varus Stability: A/P Translation <5mm. Varus (lateral stability) <5mm Valgus (medial stability) <5mm Extension La degrees or greater Radiographic evidence of joint damage: [0= normal; 1=minimal ; 2= some osteophytes , some narrowing ; 3= moderate osteophytes, significant narrowing, mild deformity; 4= large osteophytes, marked narrowing, obvious deformity]: 4= large osteophytes, marked narrowing, obvious deformity Patella Tracking: Normal Skin Integrity: Normal Pulses Palpable: Right PT: Yes Right DP:Yes Motor/Sensory: Distal Motor: Normal Distal Sensory: Normal Quadriceps Strength: 4 Knee Effusion: 1+ Ecchymosis: none Patella: Patellar apprehension test: negative Patellar compression test: positive Tenderness: Palpable defect of the quad tendon I have made the following determinations: Knee Exam: Left Prior surgery on this joint: Yes Knee ROM: Extension:0 Flexion: 115 Alignment: 0-4 degrees Varus Stability: A/P Translation <5mm Varus (lateral stability) <5mm Valgus (medial stability) <5mm Extension La Radiographic evidence of joint damage: [0= normal; 1=minimal ; 2= some osteophytes , some narrowing ; 3= moderate osteophytes, significant narrowing, mild deformity; 4= large osteophytes, marked narrowing, obvious deformity]: 4= large osteophytes, marked narrowing, obvious deformity Patella Tracking: Normal Skin Integrity: Normal Pulses Palpable: Left PT:Yes Left DP:Yes Motor/Sensory: Distal Motor:Normal Distal Sensory: Normal Quadriceps Strength:4 Knee Effusion: 1+ Ecchymosis: none Patella: Patellar apprehension test: negative Patellar compression test: positive Tenderness: Palpable defect of the quad tendon IMAGING: X-rays of the bilateral knees demonstrate shows DJD changes, likely chronic. ASSESSMENT AND PLAN: Mr. Ramirez is a 76 y.o. year old male with severe osteoarthritis of his bilateral knees. With bilateral quad tendon ruptures chronic Questions solicited and answered. We reviewed the multiple treatment options available to him for this condition and the hurtful but non-harmful nature of arthritis and the chronic auad ruptures. Both operative and nonoperative optionswere discussed as well as the pure elective nature of each. I reviewed the concept of the arthritis ladder with its step-niño approach, rising in invasiveness based on either previous response or symptom severity/impact on lifestyle. Considering the apparent impact on his lifestyle and having explored non- operative treatment options, I indicated that in my opinion a quad tendon repair with a tendon graft would be a reasonable option to attempt to restore a more normal, pain-free level of function. I discussed how the procedure is performed and all of their questions were answered. I discussed the risks of the procedure and the potentially devastating consequences of complications. Mr. Ramirez expressed a desire to pursue total knee arthroplasty. Potential barriers to total joint arthroplasty: -BMI > 40: No -Active Tobacco use: No -Diabetes with hemoglobin A1C > 7.5: No Chronic anticoagulation for A fib He will seek out the needed medical clearance and undergo the needed testing to ensure medical suitability for the proposed surgical intervention. I will plan to meet him again in the weeks prior to ananticipated potential surgical date, to review his medical consult and testing, answer any and all questions, and formulate our definitive decisions regarding proceeding with surgery (or not) at that time only. Patient was seen and evaluate with PATY Alcala documented in this encounter Plan of Treatment Not on filedocumented as of this encounter Visit Diagnoses Diagnosis Rupture of right quadriceps tendon, sequ scott Debility Debility, unspecified Pain of left lower extremity Rupture of left quadriceps tendon, seque la Primary osteoarthritis of both knees Primary localized osteoarthrosis, lower leg Chronic pain of both knees Bilateral leg weakness Other musculoskeletal symptoms referable to limbs documented in this encounter Care Teams Dynamometer Repairer Relationship Specialty Start Date End Date Aaliyah Felix APRN PCP - General Family Medicine 03/30/17 02/08/19 [place] [address] documented as of this encounter
--- OUTSIDE RECORDS SUMMARY | 2022-04-14 13:31 | XMS_ITS | Encounter Summary ---
:1940 Author Organization [facility] [place] [address] Care Team Providers Name Role Phone Aaliyah Felix APRN Primary Care Provider Reason for Visit Reason Comments Basal Cell Carcinoma Encounter Details Date Type Department Care Team Description 04/27/2017 Procedure visit Dermatology at [facility], Dennis Y, Basal cell carcinoma Road MD of left ala nasi [address] [facility] [address] [place] [address] [phone] Social History Tobacco Use Types Packs/Day Years Used Date Never Smoker Smokeless Tobacco: Never Used Alcohol Use Standard Drinks/Week Comments No 0 (1 standard drink = 0.6 oz pure alcoho l) Sex Assigned at Date Recorded Not on file documented as of this encounter Last Filed Vital Signs Vital Sign Reading Time Taken Comments Blood Pressure 121/75 04/27/2017 7:59 AM EDT Pulse 74 04/27/2017 7:59 AM EDT Temperature - - Respiratory Rate - - Oxygen Saturation - - Inhaled Oxygen Concentration - - Weight - - Height - - Body Mass Index - - documented in this encounter Patient Instructions Patient InstructionsOdette Malone CMA - 04/27/2017 8:00 AM EDT General Post-Operative Instructions Do not drink alcohol or take any medications containing aspirin, ibuprofen, or Vitamin E for the first two days after surgery unless it has been prescribed by a physician. These may increase the changeof bleeding. Do not smoke for a minimum of 5 days after surgery. Do not get your bandage wet. Avoid public pools and hot tubs As a rule, no exercise is permitted for 7 days. Avoid heavy lifting or any activity that will pull or strain the wound for 3 weeks minimum. Certain surgeries will require longer periods off from exercise as instructed by your doctor. Potential Complications Pain: Most patients have little or no pain. If your wound hurts, apply an ice pack for 15 minutes out of every hour until bedtime. Ice compresses should be done OVER the pressure bandage. Do not apply ice directly on the skin. Ice should be placed in a plastic bag, then wrapped in a towel and applied to the bandaged wound. A bag of frozen peas wrapped in a towel also works well. If your wound still hurts, you can take Tylenol 500 mg every 4-6 hours. Increasing pain, or pain notrelieved by Tylenol, should be reported to our office. Infection: Infection is not common when the wound is well cared for. [place] drainage or slight yellow film on your bandage or open wound is normal and is not an infection. It is also normal for the edgesof the wound to be pink or red, but redness should not spread out beyond the wound edges. If you notice any of these signs of infections, please call the clinic. ??? Increased pain or swelling around the wound ??? Redness spreading out from the wound ??? Green, thick, or foul smelling wound drainage ??? Fever or chills Bleeding: It is normal to see a small amount of blood on the pressure bandage when you remove it. Ifblood leaks out of the bandage within the first 48 hours, hold firm pressure directly over the top of the bandage without removing it for 15 minutes. If bleeding does not stop, hold pressure for another 15 minutes. If bleeding continues, call our office immediately or go to your local urgent care or emergency room. If blood accumulates under the sutured area, this is called a hematoma. Your wound will become swollen and very hard to the touch. You may experience increasing amounts of pain. This requires attention, and our office should be notified. Swelling and Bruising: These side effects are fairly common, but usually resolve in 2-3 weeks. Areasof the mouth and eye can last longer. Swelling and bruising can be reduced by applying an ice pack over the dressing for 15 minutes out of every hour for the rest of the day of surgery. Swelling around the eyes and neck are normal if you have had surgery to the forehead, eye area, nose, or cheeks. In fact, one or both eyes may swell shut. Swelling will be worse in the morning and improve during the day. If your wound is on your face, head or neck: ??? Sleep with your head raised on 2 pillows to reduce swelling ??? Do no bend over with your head lower then the level of your heart. Bend at the knees and not thewaist. If your wound is on your arm or leg: ??? Keep your arm or leg raised above your heart as much as you can, such as putting your leg on a pillow then lying down, particularly for the first 48 hours. This will help prevent swelling and promote healing. Wounds on the arm or leg may heal more slowly than other areas. ??? Use compression stocking or minnie wrap if instructed to do so. Scarring: There is always some scarring from any wound. Some people may have thickened scars, but these often flatten out in 3-6 months. Occasionally injections are used to help flatten thick scars. Time improves most scars. Wound healing actually takes 1-2 years before it is completely finished. Cover-up makeup may be used after the wound is healed. Other questions or concerns? Please do not hesitate to contact us. During regular business hours youcan call the clinic at . After 5PM and on weekends, please call the hospital number and ask for the School Janitor operations intelligence superintendent. Wound Care for Sutured Wounds You should start wound care on . Keep your dressing clean and dry until then. Clean your wound once a day until the sutures are removed. Supplies you will need: ??? Clean cotton swabs (Q-tips) ??? Vaseline or white petrolatum ??? Non-stick gauze (telfa pads) or band aids ??? Tape Care of the Wound 1. Assemble all supplies prior to dressing change 2. Wash your hands well with soap and water 3. Take off the old dressing. If it sticks, wet the edges of the dressing with water, or remove it in the shower. 4. Re-wash hands 5. Shower once a day with the bandage off, or clean the area under running tap water. Lather gently with soap and water, then rinse and blot dry. 6. Apply Vaseline (white petrolatum) or Aquaphor in a thin layer over the suture line. You may use aclean cotton swab to apply the ointment, rolling the swab gently over the wound. 7. Cover with a non-stick gauze thick enough to absorb any drainage and protect the wound. Skin near the surgery site may appear and feel tight. This relaxes in time. A scar is strong at 30 days, but not mature for 12 or more months. Stitches below the skin will be absorbed by the body within 2-3 months. Sometimes a stitch works itsway up through the skin. This is not necessarily a problem. If you have any questions about this, please call. If you need any help or have any questions, please call our clinic at [phone]. After 5PM and on weekends, please call the hospital number and ask for the School Janitor operations intelligence superintendent. documented in this encounter Progress Notes Dennis Kidd MD - 04/27/2017 8:00 AM EDT Mohs consultation/preoperative note Patient Name: Reinier Ramirez Age: 77 y.o. Date of : 1940 REFERRING PROVIDER: Sakshi Meek CC: Mohs micrographic surgery for treatment of a cutaneous tumor HPI: Reinier Ramirez is a 77 y.o. male presenting for biopsy-proven basal cell carcinoma location on the left nasal ala. The dermatologic preoperative information sheet was reviewed with pertinent positive and negative as below. DERMATOLOGIC PRE-OPERATIVE EVALUATION AND REVIEW OF SYSTEMS (Check those that apply) Yes No Yes No [x] [] Prior skin cancer(s)? History of Melanoma, right forearm [] [x] Organ transplant (type/year)? [x] [] History of melanoma? [] [x] History of radiation to head/neck areas for skin cancer [x] [] Heart disease? Atrial fibrillation [] [x] Cardiac stents? [] [x] Valve replacement (which valves and year)? [] [x] Pacemaker? [] [x] Defibrillator? [] [x] Joint replacement or scheduled for one soon? [] [x] Hearing aids? [] [x] Cochlear, cosmetic, or other implants? [] [x] Hypertension (controlled/not controlled)? [] [x] Lung Disease/COPD/asthma? And If yes, do youhave difficulty lying flat due to breathing? [] [x] Dementia/stroke? [] [x] Liver disease? [] [x] Other cancers? [] [x] Hepatitis or HIV? [] [x] Diabetes? [] [x] Bleeding disorder? [] [x] History of reaction to suture or glue [] [x] Fibromyalgia or extreme sensitivity to pain? [] [x] Personal history of addiction to alcohol, drugs, or prescription medications? [] [x] Basal cell nevus syndrome (ie genetic syndromes that predispose to skin cancer) [x] [] Other: Diverticulitis BLOOD THINNERS: Xarelto Yes No [] [x] NSAIDS [] [x] Fish oil/Multivitamin/Vit E/?? supplements?? (discontinue 1 week before and after surgery) [] [x]???natural?? 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 spouse, children, fci/senior care)? Alexandra and four dogs Relevant travel history or future plans: [place] and [place], here in [place] from December-Apr Prior bed tanning use: No Does patient need any assistive devices: Walker Sunscreen use: Yes, doesn't go out in the sun Tobacco use (amount per day, type of tobacco. If no tobacco, former smoker?): Never Alcohol use (type and amount per day - daily, occasional, never): None Marital status: PAST MEDICAL HISTORY Past Medical History: Diagnosis Date ??? Diverticulitis ??? Diverticulosis ??? Hypertension ??? Knee joint disorder ??? Melanoma ??? Paroxysmal atrial fibrillation PAST SURGICAL HISTORY Past Surgical History: Procedure Laterality Date ??? CHOLECYSTECTOMY ??? REVISION COLOSTOMY Previously reversed, 3 months after placement ALLERGIES: Allergies Allergen Reactions ??? Ahvnixo-Xmf-Fvn Reductase Inhibitors Swelling in joints MEDICATIONS: Current Outpatient Prescriptions on File Prior to Visit Medication Sig Dispense Refill ??? finasteride (PROSCAR) [...] 90 tablet 3 No current facility-administered medications on file prior to visit. VITAL SIGNS: BP 121/75 (BP Location (NBP): Left arm, Patient Position: Sitting, BP Cuff Sizes: Adult (25-34 cm)) Pulse 74 PHYSICAL EXAMINATION: General: patient is awake, alert, oriented and in no acute distress. Skin: Located on the left nasal ala is an erythematous scar corresponding with recent biopsy site. PHYSICIAN REVIEW OF REPORTS, RECORDS, IMAGES: 1) Biopsy slide(s) was/were requested and reviewed today by the Mohs surgeon prior to surgery and I agree with diagnosis in the associated pathology report. 2) The accompanying pathology report(s) associated with aforementioned biopsy slide(s) were/was alsoreviewed. Assessment: Reinier Ramirez is a 77 y.o. male presenting for: 1. Biopsy-proven basal cell carcinoma located on the left nasal ala. Plan: 1. Findings from the biopsy report, my independent review of the histopathology from his biopsy slides, today's clinical exam, and other pertinent details were reviewed with patient today. All questions were answered. 2. Discussed treatment options based on the above findings. We recommended Mohs micrographic surgeryfor treatment of this tumor. Mohs micrographic surgery was indicated due to: [] Anatomic location where tissue conservation is critical [] Immunocompromised (HIV, organ transplant, hematologic malignancy such as CLL, or pharmacologic Immunosuppression) [] Genetic syndromes (basal cell nevus syndrome, xeroderma pigmentosum, other) [] Aggressive histopathology (For BCC: morpheaform/fibrosing/sclerosing, Infiltrating, Perineural, metatypical/keratotic, Micronodular) (For SCC: Sclerosing, Basosquamous, Small cell, Poorly or undifferentiated, Perineural/perivascular, Spindle cell, Pagetoid, KA type on central face, Single cell, Clear cell, Lymphoepithelial, Sarcomatoid, or Breslow depth 2 mm or more) [] Incomplete tumor extirpation from prior treatment (i.e. Positive margins) [] Tumor size > 2 cm [] Recurrence of tumor [] Ill-defined clinical borders [] History of radiation at the surgical site 3. We discussed risks, benefits, and alternative treatment options to the Mohs micrographic surgery procedure as below: ?? Risks include bleeding, infection, scar, recurrence, large wound, prolonged wound, pain, swelling, bruising, and more rarely damage to underlying structures such as nerves, cartilage, or muscle which could lead to temporary [...] sometimes not known until after tumor clearance. ?? Reviewed the pros and cons of common reconstructions used for this tumor type, size, and location, and that reconstruction may lead to change in appearance. ?? Reviewed that there are some aspects of cosmesis that are dependent on patient's characteristics such as age, skin laxity/texture factors, inflammatory skin diseases such as rosacea, prior surgery/radiation, degree of actinic damage, smoking status, strength of the patient's immune system, diligentwound care, medications, and genetics. 4. The nature of sun-induced photo-aging and [...] symptomatic lesions and follow up with his haunted history tour guide or other skin provider. 6. Discussed avoiding direct sun exposure to scars for best cosmetic result. Summary of Procedure(s): 1. Please see operative report for complete details. Briefly, the tumor cleared in 2 stage(s). The final defect was repaired by single staged transposition flap. Suture removal in 5-7 days. Dennis Kidd MD Mohs Micrographic Surgery and Dermatologic Oncology Section of Dermatology, Department of Surgery Dennis Kidd MD - 04/27/2017 8:00 AM EDT Mohs micrographic Surgery Operative Report Patient name: Reinier Ramirez : 1940 Date: 04/27/2017 Staff Surgeon: Dennis Kidd MD Nursing/Manager Treasury(s): Teresa Mcmullen, Shreya Greene, Alysha Quiroga Flame Channeler (s): Kimberley Augero Pre-operative diagnosis: Basal cell carcinoma, nodular and infiltrative Post-operative diagnosis: Basal cell carcinoma, nodular and infiltrative Location/Site: Left nasal ala Procedure: Mohs micrographic surgery Indication(s) for Mohs micrographic surgery: Anatomic location and histology Stages: 2 Preoperative size of tumor: 0.8 x 0.6 cm Final defect size: 1.1 x 1.3 cm Stage I The nature and purpose [...] The site was confirmed with the patient/authorized medical sales representative/referring physician and/or a photograph form time of biopsy. A pre-operative time-out (procedural pause) was conducted with no unresolved d iscrepancies noted. Local anesthesia was obtained with 0.5% lidocaine with 1:200,000 epinephrine. The surgical site was prepped and draped in the usual sterile manner. Clinically apparent tumor was removed by curette. With all visible gross tumor completely excised, the borders of the tumor and 2-3 mm margins were excised as a complete layer. Hemostasis was achieved by electrocoagulation. The excised tissue was oriented and divided into 2 sections, chromacoded, and submitted for frozen sections. The patient tolerated the procedure well and without complications. On microscopic evaluation of the frozen sections, residual tumor was identified as basal cell carcinoma, nodular and infilatrative on section A1 and A2. Stage II The surgical site was re-anesthetized with 0.5% lidocaine with 1:200,000 epinephrine, re-prepped and redraped in a sterile manner. The residual tumor was re-excised as a complete layer 2-3mm in thickness using the Mohs map to delineate area of residual tumor. Hemostasis was achieved with electrocoagul ation. The tissue was oriented and divided into 1 sections, chromacoded, and submitted for frozen sections. The patient tolerated the procedure well and without complications. On microscopic evaluation of the frozen sections, no residual tumor was identified on the deep or outer border of the sections. The final size of the defect after complete tumor removal was 1.1 x 1.3 cm, extending to muscle. Dennis Kidd MD Repair Report (Flap) Patient name: Reinier La Ashley Staff Surgeon: Dennis Kidd MD Tool Repair Technician(s): same as above Date: 04/27/2017 Clinical Diagnosis: skin and soft tissue defect status post Mohs micrographic surgery Location/Site: Left nasal ala Indication: repair of wound with religious of anatomy/function Defect size to be repaired: 1.1 x 1.3 cm Procedure: Transposition flap repair (tissue rearrangement) Final flap size: 6 x 3 cm 2 Procedure Details: Due [...] anesthesia was obtained with a solution of 0.5% lidocaine with 1:200,000 epinephrine. The surgical site was prepped and draped in the usual sterile manner. Any beveled edges of the defect were repaired with a scalpel blade. The flap was created by making incisions along left nasolabial fold and left nasal sidewall. The flap and the wound edges were undermined, and hemostasis was obtained with electrocoagulation. The flap was transposed onto the defect. The skin edges were closed using 4-0 Vicryl and 5-0 Monocryl subcutaneous sutures and 6-0 Prolene skin sutures. Final flap size: 6x3 cm2. Estimated blood loss: Minimal. Complications: None. Wound care: Routine. Follow up for suture removal in 7 days. The patient was discharged in good condition. Total anesthesia used today of 0.5% lidocaine with 1:200,000 epinephrine: 13 cc Preoperative Medications: None Post-operative medications: Duricef 500 mg by mouth twice daily x 7 days Dennis Kidd MD Mohs Micrographic Surgery and Dermatologic Oncology Section of Dermatology, Department of Surgery documented in this encounter Plan of Treatment Not on filedocumented as of this encounter Visit Diagnoses Diagnosis Basal cell carcinoma of left ala nasi Basal cell carcinoma of skin of other an d unspecified parts of face documented in this encounter Care Teams Real Estate Development Manager Relationship Specialty Start Date End Date Aaliyah Felix APRN PCP - General Family Medicine 03/30/17 02/08/19 [facility] [place] [id number] documented as of this encounter
--- OUTSIDE RECORDS SUMMARY | 2022-04-14 13:31 | XMS_ITS | Encounter Summary ---
:1940 Author Organization [facility] [place] [address] Care Team Providers Name Role Phone Tiera Phillip MD Primary Care Provider Encounter Details Date Type Department Care Team Description 02/21/2019 Orders Only Cardiology at [facility] Alexis Shook, Chronic atrial fibrillation (Primary Dx); [facility] Left [place] [address] CARDIOLOGY DEPT. [phone] [place], [place] [address] Social History Tobacco Use Types Packs/Day Years Used Date Never Smoker Smokeless Tobacco: Never Used Alcohol Use Standard Drinks/Week Comments No 0 (1 standard drink = 0.6 oz pure alcoho l) Sex Assigned at Date Recorded Not on file documented as of this encounter Plan of Treatment Not on filedocumented as of this encounter Results EKG 12 Lead (02/23/2019 10:45 AM EDT) Component Value Ref Range Test Analysis Performed Pathologis t Method Time At Signature Ventricular rate 70 BPM MUSE SYSTEM Atrial Rate 60 BPM MUSE SYSTEM QRS Duration 80 ms MUSE SYSTEM Q-T Interval 404 ms MUSE SYSTEM QTC Calculated 436 ms MUSE SYSTEM (Bezet) Calculated R Sheldon -29 degrees MUSE SYSTEM Calculated T [place] -6 degrees MUSE SYSTEM INTERPRETATION Atrial fibrillation [...] encounter Visit Diagnoses Diagnosis Chronic atrial fibrillation - Primary Atrial fibrillation Left ventricular hypertrophy Cardiomegaly documented in this encounter Care Teams Watchmaker Apprentice Relationship Specialty Start Date End Date Tiera Phillip MD PCP - General Family Medicine 02/09/19 Lary [address] [place] [address] documented as of this encounter
--- OUTSIDE RECORDS SUMMARY | 2022-04-14 13:31 | XMS_ITS | Encounter Summary ---
:1940 Author Organization [facility] [place] [address] Care Team Providers Name Role Phone KevinAaliyah soriano APRN Primary Care Provider Encounter Details Date Type Department Care Team Description 02/23/2018 Office Visit Cardiology at [facility] Alexis Shook, Chronic atrial fibrillation; [facility] Essential hypertension; [facility] [place] [address] CARDIOLOGY DEPT. [phone] [place], [place] [address] Social History Tobacco Use Types Packs/Day Years Used Date Never Smoker Smokeless Tobacco: Never Used Alcohol Use Standard Drinks/Week Comments No 0 (1 standard drink = 0.6 oz pure alcoho l) Sex Assigned at Date Recorded Not on file documented as of this encounter Last Filed Vital Signs Vital Sign Reading Time Taken Comments Blood Pressure 124/75 02/23/2018 10:01 AM EDT Pulse 70 02/23/2018 10:01 AM EDT irreg Temperature - - Respiratory Rate - - Oxygen Saturation 97% 02/23/2018 10:01 AM EDT Inhaled Oxygen Concentration - - Weight 117.5 kg (259 lb) 02/23/2018 10:01 AM EDT Height 180.3 cm (5' 11) 02/23/2018 10:01 AM EDT Body Mass Index 36.12 02/23/2018 10:01 AM EDT documented in this encounter Progress Notes Alexis Shook MD - 02/23/2018 10:20 AM EDT Images from the original note were not included. [facility] [address] [place], [place] [address] CARDIOLOGY OUTPATIENT FOLLOW-UP NOTE Reinier Ramirez [id number] PCP: Aaliyah Felix APRN 02/23/2018 PRIMARY CARE PROVIDER: Aaliyah Felix APRN PROBLEM LIST: Patient Active Problem List Diagnosis ??? Rupture of right quadriceps tendon ??? Rupture of left quadriceps tendon ??? Primary osteoarthritis of both knees ??? Chronic pain of both knees ??? Possible ASCVD (arteriosclerotic cardiovascular disease) ?? Inferior wall motion abnormalities on echo's at [facility] 02/15/14 and 03/30/17 ?? Nuclear stress test at [place] [facility] 10/26/16 showing normal perfusion ?? Cardia Edmund March 30, 2017 showing normal left ventricular size, ejection fraction 60%, andwall motion abnormalities with inferior hypokinesia. ?? Regadenoson sestamibi [facility] April 22, 2017 showing normal perfusion; normal wall thickening ??? MICK (obstructive sleep apnea) ??? Morbid obesity ??? Bilateral leg weakness ??? Chronic atrial fibrillation ?? Diagnosed 11/2013, without symptoms during visit with siebel consultant, ?? Asymptomatic ?? [id number] score = 2 (age and HTN) ??? [...] facility-administered medications for this visit. SUBJECTIVE: This 77-year-old man comes for follow-up visit. He has chronic atrial fibrillation whichis been present since November 2013 and essentially asymptomatic all along. He has an elevated QWCQK1Vctoylgae of 3 (not to points for age and 1 for hypertension). He is managed with Xarelto. He has suspected coronary artery disease on the basis of some inferior wall motion abnormalities on an echo 4 years ago but separate stress test both in [place] and at [facility] have shown normal perfusion. He also has obstructive sleep apnea which is currently untreated. He comes today indicating that he is doing reasonably well. He is having problems with knee pain. Surgery has been recommended but has been declined. He has no awareness of his heart rhythm. He has mild exertional dyspnea which his feels is gradually worsening. He is highly inactive. When in [place] he enjoys swimming but has even up [place] this [place]. He is free of chest pain, lightheadedness, or syncope. OBJECTIVE: Vital Signs: BP 124/75 Pulse 70 Comment: irreg Ht 180.3 cm (5' 11) Wt 117.5 kg (259 lb) SpO2 97% BMI 36.12 kg/m2 Physical Exam: His exam today is notable for flat neck veins, clear lungs, and an irregularly irregular rhythm. He has a trace to 1+ lower extremity edema. His abdomen is benign. ASSESSMENT: This elderly gentleman has chronic atrial fibrillation which remains asymptomatic. He istolerating anticoagulation. His dyspnea is likely multifactorial and I think there is a strong component of deconditioning given his reported fairly profound inactivity. We talked about this and I strongly urged him to get moving more and consider aquatic exercise other water related activity since heseems to be much easier for him. PLAN: 1. Best efforts at increasing activities 2. Continue current medications 3. Cardiology follow-up in 1 year documented in this encounter Plan of Treatment Not on filedocumented as of this encounter Procedures Procedure Name Priority Date/Time Associated Diagnosis Comme nts EKG 12-LEAD Routine 02/23/2018 9:57 AM Chronic atrial Results for this EDT fibrillation procedure are i n the results section. documented in this encounter Results EKG 12 Lead (02/23/2018 9:57 AM EDT) Component Value Ref Range Test Analysis Performed Pathologis t Method Time At Signature Ventricular rate 72 BPM MUSE SYSTEM Atrial Rate 32 BPM MUSE SYSTEM QRS Duration 76 ms MUSE SYSTEM Q-T Interval 408 ms MUSE SYSTEM QTC Calculated 446 ms MUSE SYSTEM (Bezet) Calculated R [place] -30 degrees MUSE SYSTEM Calculated T [place] -8 degrees MUSE SYSTEM INTERPRETATION Atrial fibrillation with pre mature ventricular or aberrantly conducted complexes MUSE SYSTEM Left axis deviation Inferior infarct , age undetermined Abnormal ECG When compared with ECG of 22-APR-2017 11:24, QRS axis Shifted left Criteria for Anteroseptal infarct are no longer Present Inferior infarct is now Present Nonspecific T wave abnormality now evident in Inferior leads Nonspecific T wave abnormality, worse in Anterior leads Confirmed by MD Bouchra, Alexis ([id number]) on 02/23/2018 5:33:00 PM Specimen Anatomical Collection Method Collection Time Receive d Time (Source) Location / / Volume Laterality 02/23/2018 9:57 AM 8 5:33 EDT PM EDT Alexis Shook MD ECG ORDERABLES Performing Organization Address City/State/ZIP Code Phon e Number MUSE SYSTEM documented in this encounter Visit Diagnoses Diagnosis Chronic atrial fibrillation Atrial fibrillation Essential hypertension Unspecified essential hypertension Left ventricular hypertrophy Cardiomegaly documented in this encounter Care Teams Childcare Administrator Relationship Specialty Start Date End Date Aaliyah Felix APRN PCP - General Family Medicine 03/30/17 02/08/19 [place] [address] documented as of this encounter
--- OUTSIDE RECORDS SUMMARY | 2022-04-14 13:31 | XMS_ITS | Encounter Summary ---
:1940 Author Organization [facility] [place] [address] Care Team Providers Name Role Phone Isidro Aaliyah CHRISTELLE Primary Care Provider Reason for Referral Diagnostic Test (Routine) - Closed Specialty Diagnoses / Procedures Referred By Contact Refer red To Contact Cardiology Diagnoses Chronic atrial fibrillation Cardiomyopathy, unspecified type Alexis Shook MD [facility] Non-Inv Card Lab Procedures Echocardiogram Transthoracic(Leb) [facility] [place] [address] [place] [address] Fax: Referral ID Status Reason Start Date Expiration Date Visits V isits Requested Authorized [id number] Closed Specialty 03/30/2017 03/30/2018 1 1 Service Requested Encounter Details Date Type Department Care Team Description 03/30/2017 Office Visit Cardiology at [facility] Alexis Shook, Chronic atrial fibrillation; [facility] Cardiomyopathy, [place] [address] CARDIOLOGY DEPT. [phone] [place], [place] [address] Social History Tobacco Use Types Packs/Day Years Used Date Never Smoker Smokeless Tobacco: Never Used Alcohol Use Standard Drinks/Week Comments No 0 (1 standard drink = 0.6 oz pure alcoho l) Sex Assigned at Date Recorded Not on file documented as of this encounter Last Filed Vital Signs Vital Sign Reading Time Taken Comments Blood Pressure 112/70 03/30/2017 10:41 AM EDT Pulse 68 03/30/2017 10:41 AM EDT Temperature - - Respiratory Rate - - Oxygen Saturation 96% 03/30/2017 10:41 AM EDT Inhaled Oxygen Concentration - - Weight 117 kg (258 lb) 03/30/2017 10:41 AM EDT Height 179.1 cm (5' 10.5) 03/30/2017 10:41 AM EDT Body Mass Index 36.5 03/30/2017 10:41 AM EDT documented in this encounter Patient Instructions Patient InstructionsAlexis Shook MD - 03/30/2017 11:20 AM EDT 1. Discontinue baby aspirin 2. Echocardiogram to be scheduled 3. Final recommendations regarding surgical clearance after echo results available 4. Routine follow-up in one year documented in this encounter Progress Notes Alexis Shook MD - 03/30/2017 11:20 AM EDT Images from the original note were not included. [facility] [place] [place] [address] CARDIOLOGY OUTPATIENT FOLLOW-UP NOTE Acosta Ramirez [id number] PCP: Aaliyah Felix APRN 03/30/2017 PRIMARY CARE PROVIDER: Aaliyah Felix APRN PROBLEM LIST: Patient Active Problem List Diagnosis ??? MICK (obstructive sleep apnea) ??? Morbid obesity ??? Bilateral leg weakness ??? Chronic atrial fibrillation ?? Diagnosed 11/2013, without symptoms during visit with stucco plasterer, ?? Asymptomatic ?? XATPQ9Madn score = 2 (age and HTN) ??? [...] 1 TABLET DAILY 90 tablet 3 ??? aspirin 81 mg chewable tablet Take 81 mg by mouth daily. No current facility-administered medications for this visit. SUBJECTIVE: This 76-year-old man comes for follow-up visit. He has chronic atrial fibrillation, hypertension, and bilateral leg weakness. He comes today indicating that he is relatively stable. He has ongoing leg issues and apparently has some problems with his left quadriceps tendon. He is being ronaldo mplated for surgery and has been referred to orthopedics at [facility]. He says he is reasonably stable from a cardiac perspective. He describes mild exertional dyspnea. He denies palpitations, lightheadedness, orthopnea, PND, or edema. He is on Xarelto and describes no bleeding problems. He remains free of chest pain and has no history of coronary artery disease although in the past has hada dilated left ventricle. A prior nuclear stress test showed no ischemia. OBJECTIVE: Vital Signs: BP 112/70 (BP Location (NBP): Left arm, Patient Position: Sitting, BP Cuff Sizes: Adult(25-34 cm)) Pulse 68 Ht 179.1 cm (5' 10.5) Wt (!) 117 kg (258 lb) SpO2 96% BMI 36.5 kg/m2 Physical Exam: On physical examination he appeared in no acute distress. His vital signs are summarized above. He had no JVD. His lungs were clear. His heart exam revealed an irregularly irregular rhythm at a controlled rate. He had no peripheral edema. ASSESSMENT: 1. Severe physical deconditioning 2. Chronic atrial fibrillation: This remains stable. He has no awareness of his heart rhythm and is tolerating anticoagulation. 3. Mild cardiomyopathy: He has shown a dilated left ventricle in the past. I recommended a follow-upechocardiogram which will happen today before formally clearing him for orthopedic surgery. PLAN: 1. Continue current medications 2. Okay to hold Xarelto for 2-3 days prior to orthopedic surgery if surgery happens 3. Echocardiogram today 4. Further recommendations following echocardiogram documented in this encounter Plan of Treatment Not on filedocumented as of this encounter Procedures Procedure Name Priority Date/Time Associated Diagnosis Comme nts EKG 12-LEAD Routine 03/30/2017 10:42 AM Chronic atrial Result s for this EDT fibrillation procedure are i n the results section. documented in this encounter Results ECHOCARDIOGRAM NO CHARGE (03/30/2017 6:10 PM EDT) Anatomical Region Laterality Modality Other Specimen (Source) Anatomical Location Collection Method / Collectio n Time Received Time / Laterality Volume 03/31/2017 Narrative 03/31/2017 3:41 PM EDT Procedure: ?Transthoracic Echocardiogram Patient: ?BALAJI ACOSTA La ? (Age): 1940(76y) Med Rec#: ? [id number] ?Sex: ?M ? Site Loc: ? [facility] ?Ht / Wt: ??179(cm)/117(kg) Pt. Loc: ?Echo Lab ?BSA: ?2.34 Study Date: ?? 03/30/2017 ?Pt. Type: Outpatient Tape: ? Referring: Alexis Shook Reading: Orlando Allen ([id number]) Surveyor Geodetic: Diego Apple Diagnosis: *ICD-10-PCS Chronic atrial fibrillation [...] ? Mid-Inferior ?Hypokinetic ? Mid-Inferoseptal ?Normal ? [place]-Septal ? Normal ? [place]-Anterior ? Normal ? [place]-Lateral ?Normal ? [place]-Inferior ? Normal ? [place]-Tip ?Normal ? This report has been electronically sign ed by: _ Orlando Allen MD ? 03/31/2017 15:40:58 Images reviewed and interpretation verif ied [facility] Cardiac Ultrasound Laboratory Procedure Note Orlando Allen MD - 03/31/2017Form atting of this note might be different from the original. Procedure: Transthoracic Echocardiogram Patient: BALAJI CARLISLE(Age): [birth year](76y) Med Rec#: [id number] Sex: M Site Loc: [facility] Ht / Wt: 179(cm)/117(kg) Pt. Loc: Echo Lab BSA: 2.34 Study Date: 03/30/2017 Pt. Type: Outpati ent Tape: Referring: Alexis Shook Reading: Orlando Allen ([id number]) Surveyor Geodetic: Diego Apple Diagnosis: *ICD-10-PCS Chronic atrial fibrillation [...] Normal Mid-Posterolateral Hypokinetic Mid-Inferior Hypokinetic Mid-Inferoseptal Normal [place]-Septal Normal [place]-Anterior Normal [place]-Lateral Normal [place]-Inferior Normal [place]-Tip Normal This report has been electronically sign ed by: _ Orlando Allen MD 03/31/2017 15:40: 58 Images reviewed and interpretation verif ied [facility] Cardiac Ultrasound Laboratory Alexis Shook MD ECHO ORDERABLES EKG 12 Lead (03/30/2017 10:42 AM EDT) Component Value Ref Range Test Analysis Performed Pathologis t Method Time At Signature Ventricular rate 69 BPM MUSE SYSTEM Atrial Rate 58 BPM MUSE SYSTEM QRS Duration 92 ms MUSE SYSTEM Q-T Interval 376 ms MUSE SYSTEM QTC Calculated 402 ms MUSE SYSTEM (Bezet) Calculated R [place] -38 degrees MUSE SYSTEM Calculated T [place] -35 degrees MUSE SYSTEM INTERPRETATION Atrial fibrillation MUSE SYSTEM Left axis deviation Inferior infarct (cited on or before 30-MAR-2017) Abnormal ECG When compared with ECG of 03-DEC-2015 11:00, Nonspecific T wave abnormality, worse in Anterolateral leads Confirmed by MD Alejandro, Orlando Garcia ([id number]) on 03/31/2017 1 0:17:37 AM Specimen Anatomical Collection Method Collection Time Receive d Time (Source) Location / / Volume Laterality 03/30/2017 10:42 03/31/2017 AM EDT 10:17 AM EDT Alexis Shook MD ECG ORDERABLES Performing Organization Address City/State/ZIP Code Phon e Number MUSE SYSTEM documented in this encounter Visit Diagnoses Diagnosis Chronic atrial fibrillation Atrial fibrillation Cardiomyopathy, unspecified type Chronic atrial fibrillation Atrial fibrillation Cardiomyopathy, unspecified type documented in this encounter Care Teams Back Shoe Operator Relationship Specialty Start Date End Date Aaliyah Felix APRN PCP - General Family Medicine 03/30/17 02/08/19 [place] [address] documented as of this encounter
--- OUTSIDE RECORDS SUMMARY | 2022-04-14 13:31 | XMS_ITS | Encounter Summary ---
:1940 Author Organization [place] [address] Care Team Providers Name Role Phone IsidroAaliyah CHRISTELLE Primary Care Provider Reason for Visit Diagnostic Test (Routine) - Closed Specialty Diagnoses / Procedures Referred By Contact Refer red To Contact Radiology Diagnoses COTTON (dyspnea on exertion) Abnormal echocardiogram Alexis Shook MD [facility] Rad Nuclear Med Procedures NM Myocardial Perfusion Scan Pharmacologic [facility] [place] [address] [place] [address] Fax: Referral ID Status Reason Start Date Expiration Date Visits V isits Requested Authorized [id number] Closed Specialty 04/07/2017 04/07/2018 1 1 Service Requested Encounter Details Date Type Department Care Team Description 04/22/2017 Hospital Encounter Nuclear Medicine at [facility]hin[facility] Shook on, Mallory Brooke [place] [address] CARDIOLOGY DEPT. [phone] [place], [place] [address] (Wo rk) Social History Tobacco [...] procedure are in MYOCARDIAL PERFUSION Abnormal the [facility] ults echocardiogram section. documented in this encounter [...] at 04/22/2017 4:21 PM Alexis Shook MD [facility] [place] ORDERABLES documented in this encounter Visit Diagnoses Not on filedocumented in this encounter Care Teams Electrical And Instrument Engineer Relationship Specialty Start Date End Date Aaliyah Felix APRN PCP - General Family Medicine 03/30/17 02/08/19 [place] [address] documented as of this encounter
--- OUTSIDE RECORDS SUMMARY | 2022-04-14 13:31 | XMS_ITS | Encounter Summary ---
:1940 Author Organization [facility] [address] [address] Care Team Providers Name Role Phone Kb Nguyen MD Primary Care Provider Reason for Visit Reason Comments Skin Check Encounter Details Date Type Department Care Team Description 02/09/2017 Office Visit Dermatology at [facility] story of basal cell cancer; Kelly Bridges MD History of SCC (squamous cell carcinoma) of skin; [address] [facility] [place] (actinic keratosis); [place] [address] Skin lesion; [phone] [facility] History of [address], [place] [address] Social History Tobacco Use Types Packs/Day Years Used Date Never Smoker Smokeless Tobacco: Never Used Alcohol Use Standard Drinks/Week Comments No 0 (1 standard drink = 0.6 oz pure alcoho l) Sex Assigned at Date Recorded Not on file documented as of this encounter Patient Instructions Patient InstructionsKelly Donnelly Verónica - 02/09/2017 10:15 AM EDT Treatment and Wound Care Instructions [...] or concerns, please call the office at [phone]. If it is after 5PM, or a holiday or weekend, please call [phone] and ask for the Fleece Tier on-call. Actinic Keratoses You have been diagnosed today [...] weeks. Please contact the Dermatology clinic at [phone] if the lesion has not fully resolved after 6 weeks. If you are calling after hours, please call the mainline at [phone] and ask for the medical administrative technician cold roll packer sheet iron. documented in this encounter Progress Notes Sakshi Meek MD - 02/12/2017 2:29 PM EDT Li, Biopsy shows BCC, recommend Mohs. Please notify patient and refer for Mohs. Sakshi Meek MD - 02/09/2017 10:15 AM EDT Images from the original note were not included. DERMATOLOGY ESTABLISHED PATIENT CLINIC NOTE Date of service: 02/09/2017 Reinier Ramirez : 1940 Provider: Sakshi Meek MD Chief Complaint Patient presents with ??? Skin Check SKIN HISTORY: MELANOMA PATHOLOGY REPORT: 1. Melanoma-right forearm-2010, negative lymph nodes. - Pt brought path report from re-excision of lesion on right forearm, but no original biopsy: Moderately atypical junctional Melanocytic proliferation residual. No evidence of Melanoma Margins are free 2. 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 BCC right clavicle s/p ED&C 4. Actinic keratosis-( -02/14/15, - 05/16/15, - 12/12/15 ) 5. 04/14/2016- left preauricular-BCC, NODULAR TYPE, transected -ED&C HPI Reinier Ramirez is a 76 y.o. year old male, established patient last seen by me on 04/28/2016. Here today for a full skin exam. Patient [place] Fleece Tier [place] a topical cream was applied to the face causing peeling. He is unsure to the name. When questioned about a bump on his left nasal ala, patient reports that it has been present for several months but asymptomatic. MEDS: Current Outpatient Prescriptions Medication Sig Dispense Refill ??? XARELTO 20 mg Tablet TAKE 1 TABLET DAILY 90 tablet 3 ??? atenolol (TENORMIN) 25 mg Tablet TAKE 1 TABLET DAILY FOR ATRIAL FIBRILLATION 90 tablet 3 ??? simvastatin (ZOCOR) 10 mg Tablet TAKE 1 TABLET NIGHTLY 90 tablet 3 ??? losartan (COZAAR) 50 mg Tablet TAKE 1 TABLET DAILY 90 tablet 3 ??? meclizine (ANTIVERT) 25 mg Tablet Take 25 mg by mouth daily. ??? aspirin 81 mg chewable tablet Take 81 mg by mouth daily. No current facility-administered medications for this visit. ADR: No Known Allergies ROS General: feeling well Skin: denies other skin complaints EXAM General: NAD, pleasant, cooperative Skin: Patient was asked to disrobe to the level of their comfort. A total body skin exam except for areas covered by underwear was performed. This includes examination of the skin of the scalp, face, ears, neck, chest, axillae, left and right upper and lower extremities, hands and feet, back, abdomen, and except the areas covered by underwear were not examined per patient request. No lymphadenopathy, including the supraclavicular, cervical, axillary, and inguinal areas. Melanoma excision site scar was examined and palpated. There was no increase in pigmentation or induration at this site. Significant skin findings: A. Left nasal ala: 0.5 cm flesh colored papule with telangiectasias Verbal consent was given today to obtain and chart today's photos. Photos taken by Kelly Donnelly Clinical Scribe. B. Right dorsal hand and forearm x 7, left dorsal hand and forearm x 4, right upper forehead x 1, right medial cheek x 1: 0.2-0.3cm scaly irregular pink papules Total: 13 C. Well-healed hypopigmented scars at sites above, no signs of recurrence ASSESSMENT/PLAN: A. BCC vs IDN Procedure: Skin biopsy by shave technique Location: left nasal ala Discussed indications for procedure and expectations including [...] reviewed. Follow-up based on pathology results. B. Actinic Keratoses Discussed premalignant potential of lesions with patient and counseled that destruction with liquid nitrogen therapy is recommended. Patient agreed to the procedure after discussing risks/benefits/alternatives of the procedure, including hypopigmentation and discomfort. Wound care reviewed. Procedure Note: Procedure: Destruction of lesions with cryotherapy. Number: 13 Location: as above Discussed procedure and expectations including risks (including risk of hypopigmentation) and benefits. Verbal consent obtained. Frozen with LN2, 15-30 second thaw time, TWICE. There were no complications; the patient tolerated the procedure well. Post-procedure expectations and wound care were reviewed. C. H/O BCC, SCC, melanoma, NER - Will continue to monitor Follow up: Return to clinic in 4 months for full skin exam, or sooner if needed. Patient scheduled upon exiting. Patient instructed to call with questions or concerns. I am documenting this encounter acting as the scribe for and in the presence of Dr. Meek: Yen Mccarthy, SAUSAGE TIER and Kelly Donnelly, Clinical Scribe I performed the above scribed service and agree with the accuracy of the documentation in this encounter. Sakshi Meek MD Inspector Conveyor Line of Dermatology, Department of Svp Digital Sales Food & CookingInspector Conveyor Linefull stack engineer (Dermatopathology) [facility] documented in this encounter Plan of Treatment Not on filedocumented as of this encounter Procedures Procedure Name Priority Date/Time Associated Diagnosis Comme nts SPECIMEN TO Routine 02/09/2017 11:07 AM Skin lesion Results for this PATHOLOGY (NON-OR) EDT procedure are in the results section. SURGICAL PATHOLOGY Routine 02/09/2017 11:07 AM Re sults for this REPORT EDT procedure are i n the results section. documented in this encounter Results Surgical Pathology Report (02/09/2017 11:07 AM EDT) Component Value Ref Test Analysis Performed At [facility] Method Time Signature Surgical [id number] ?Location: [facility] Report The signing pathologist has (i) examined the relevant preparation(s) for the [facility]IAL specimen(s) and (ii) rendered or confirmed the diagnosis(es) . [facility] . ?Surgic al Pathology DIAGNOSIS Skin, left nasal ala, shave biopsy: - Basal cell carcinoma, nodu lar and infiltrative (micronodular) type, present at the peripheral edge and base of the specimen Electronically signed by: ??Heidi SAUCEDO, Reinier Catalan Verified: ??02/11/2017 ?Dermatopathologist CLINICAL INFORMATION Specimen Submitted: A - Skin, left nasal ala, shave biopsy (1) Clinical History: 0.5 cm flesh colored papule with telangiectasias Clinical Diagnosis: BCC versus IDN SPECIMEN PROCESSING A - Labeled/Fixative: Left nasal ala, formalin. Quantity/Size: Single, 0.5 x 0.4 x 0.1 cm. Tissue Description: Shave of a stallworth, glistening skin papule. Sections/Processing: Inked and bisected. (T1) ??elvia Specimen (Source) Anatomical Collection Method Collection Time Re ceived Time Location / / Volume Laterality 02/09/2017 11:07 AM EDT Sakshi Meek MD PATHOLOGY/CYTOLOGY ORDERABLE S Performing Organization Address City/State/[place] [address] Specimen to Pathology (NON-OR) (02/09/2017 11:07 AM EDT) Specimen Anatomical Collection Method Collection Time Receive d Time (Source) Location / / Volume Laterality AP Specimen 02/09/2017 11:07 02/09/2017 1:39 AM EDT PM EDT Narrative [facility] - 02/09/2017 1:39 PM EDT Specimen requisition ordered. ??Separate Pathology report to follow Resulting Agency Comment Spec In Lab Sakshi Meek MD PATHOLOGY/CYTOLOGY ORDERABLE S Performing Organization Address City/[facility]/[place] [address] documented in this encounter Visit Diagnoses Diagnosis History of basal cell cancer Personal history of other malignant neop lasm of skin History of SCC (squamous cell carcinoma) of skin Personal history of other malignant neop lasm of skin [place] (actinic keratosis) Actinic keratosis Skin lesion Unspecified disorder of skin and subcuta neous tissue History of melanoma Personal history of malignant melanoma o f skin documented in this encounter Care Teams Licensing Services Clerk Relationship Specialty Start Date End Date Kb Nguyen MD PCP - General 12/01/16 03/29/17 [address] [place] [address] documented as of this encounter
--- OUTSIDE RECORDS SUMMARY | 2022-04-14 13:31 | XMS_ITS | Encounter Summary ---
:1940 Author Organization [facility] [place] [address] Care Team Providers Name Role Phone Aaliyah Felix APRN Primary Care Provider Encounter Details Date Type Department Care Team Description 04/27/2018 Office Visit Cardiology at [facility] Alexis Shook DOE (dyspnea on exertion); [facility] Chronic atrial fibrillation; [facility] Essential hypertension; [place], [place] Left ventricular hypertrophy [id number] CARDI[address]Y DEPT. [phone] [place], [place] [address] Social History Tobacco Use Types Packs/Day Years Used Date Never Smoker Smokeless Tobacco: Never Used Alcohol Use Standard Drinks/Week Comments No 0 (1 standard drink = 0.6 oz pure alcoho l) Sex Assigned at Date Recorded Not on file documented as of this encounter Last Filed Vital Signs Vital Sign Reading Time Taken Comments Blood Pressure 97/57 04/27/2018 11:17 AM EDT Pulse 72 04/27/2018 11:17 AM EDT Temperature - - Respiratory Rate - - Oxygen Saturation 99% 04/27/2018 11:17 AM EDT Inhaled Oxygen Concentration - - Weight 122 kg (269 lb) 04/27/2018 11:17 AM EDT Height 180.3 cm (5' 11) 04/27/2018 11:17 AM EDT Body Mass Index 37.52 04/27/2018 11:17 AM EDT documented in this encounter Patient Instructions Patient InstructionsAlexis Shook MD - 04/27/2018 11:20 AM EDT 1. Continue furosemide at current dosage 2. Lab today 3. Reduce losartan to 25 mg daily 4. Follow-up in 2-3 weeks documented in this encounter Progress Notes Alexis Shook MD - 04/27/2018 11:20 AM EDT Images from the original note were not included. [facility] [place] [address] [id number] CARDIOLOGY OUTPATIENT FOLLOW-UP NOTE Reinier Ramirez [id number] PCP: Aaliyah Felix APRN 04/27/2018 PRIMARY CARE PROVIDER: Aaliyah Felix APRN PROBLEM LIST: Patient Active Problem List Diagnosis ??? Rupture of right quadriceps tendon ??? Rupture of left quadriceps tendon ??? Primary osteoarthritis of both knees ??? Chronic pain of both knees ??? Possible ASCVD (arteriosclerotic cardiovascular disease) ?? Inferior wall motion abnormalities on echo's at [facility] 02/15/14 and 03/30/17 ?? Nuclear stress test at [facility] 10/26/16 showing normal perfusion ?? Cardia Edmund March 30, 2017 showing normal left ventricular size, ejection fraction 60%, andwall motion abnormalities with inferior hypokinesia. ?? Regadenoson sestamibi [facility] April 22, 2017 showing normal perfusion; normal wall thickening ??? MICK (obstructive sleep apnea) ??? Morbid obesity ??? Bilateral leg weakness ??? Chronic atrial fibrillation ?? Diagnosed 11/2013, without symptoms during visit with manager meat, ?? Asymptomatic ?? [id number] score = 2 (age and HTN) ??? Hypertension ??? Diverticulosis ??? Left ventricular hypertrophy -TTE 02/17/2014 shows eccentric left ventricular enlargement (moderate LV dilation with LVEDD 6.3cm, normal LVEF 55%, no concentric LVH) ??? [place] (actinic keratosis) ??? History of melanoma MEDICATIONS: Current Outpatient Prescriptions Medication Sig Dispense Refill ??? furosemide (LASIX) 40 mg Tablet Take 20 mg by mouth daily. ??? atenolol (TENORMIN) [...] visit. SUBJECTIVE: This 78-year-old man comes for an early visit. He has suspected but never proven coronary artery disease and chronic atrial fibrillation. I last saw him in early February and he was describing some gradual exertional dyspnea and had some edema on exam. I thought his symptoms were likely multifactorial and partly from deconditioning. I recommended he increase his activities. In the meantime he was seen by his PCP (about a month ago) with cough and wheezing. A chest x-ray was done and by my reading did not show any failure or pneumonia. Labs, however, showed an elevated proBNP of 1569 and he had worsened edema on exam. He was advised to start Lasix 20 mg daily. He comes today indicating that his breathing is a little better. His edema is not significantly changed. His cough has largely abated. He has, however, noted a fairly low blood pressure and feels frequently lightheaded. OBJECTIVE: Vital Signs: BP 97/57 Pulse 72 Ht 180.3 cm (5' 11) Wt 122 kg (269 lb) SpO2 99% BMI 37.52 kg/m2 Physical Exam: On examination today he appeared in no acute distress. His blood pressure was low as indicated above. His jugular venous pressures were hard to assess but did not appear to be overtly elevated. His lungs were notable for a few coarse crackles at the bases. His heart exam revealed an irregularly irregular rhythm without murmurs. His abdomen was soft and nontender. He had 1+- 2+ edema below the knees bilaterally. ASSESSMENT: This is a difficult situation. This gentleman had an elevated proBNP, increased dyspnea and cough, and was likely fluid overloaded. The Lasix has helped him a little bit but was started in the context of a creatinine of 1.66 so I am concerned about its impact on his renal function. His blood pressure has dropped a fair amount with the addition of Lasix and is feeling lightheaded. I am worried that his blood pressure may be potentially dangerously low given the potential for fall. PLAN: 1. Reduce losartan to 25 mg daily 2. Continue furosemide at current dosage for now 3. Labs today including basic metabolic profile and proBNP 4. Call patient later today or tomorrow with lab results documented in this encounter Miscellaneous Notes Addendum Note - Jennyfer Licona - 04/27/2018 12:10 PM EDT Addended by: JENNYFER LICONA on: 04/27/2018 12:10 PM Modules accepted: Orders documented in this encounter Plan of Treatment Not on filedocumented as of this encounter Procedures Procedure Name Priority Date/Time Associated Comments Diagnosis PRO-BRAIN NATRIURETIC Routine 04/27/2018 12:19 COTTON (dyspnea on Results for this PEPTIDE PM EDT exertion) procedure are i n the results section. BASIC METABOLIC PANEL Routine 04/27/2018 12:19 COTTON (dyspnea on Results for this (NON-FASTING) PM EDT exertion) procedure are in the results section. documented in this encounter Results (ABNORMAL) pro-Brain Natriuretic Peptide (04/27/2018 12:19 PM EDT) P athologist Signature ProBNP 1,671 (H) <=450 [facility] pg/mL [facility] Specimen Anatomical Collection Method Collection Time Receive d Time (Source) Location / / Volume Laterality Blood specimen 04/27/2018 12:19 8 (specimen) PM EDT 12:25 PM EDT Resulting Agency Comment Spec In Lab Alexis Shook MD CHEMISTRY ORDERABLES Performing Organization Address City/State/[place] [address] (ABNORMAL) Basic Metabolic Panel (non-fasting) (04/27/2018 12:19 PM EDT) athologist Signature Glucose Lvl 124 65 - 199 [facility] mg/dL [facility] Comment: Diabetes: >=200 mg/dL plus symp toms BUN 24 (H) 10 - 20 mg/dL [facility] Creatinine 1.56 (H) 0.80 - 1.50 mg/dL [facility] Sodium 143 135 - 145 mmol/L [facility] Potassium 4.3 3.5 - 5.0 mmol/L [facility] Comment: Please note: ??Patients with WBC >100,00 0 may have falsely elevated Potassium levels. ??For accurate Potassium quantif ication in these patients send serum separator tube (gold top) for subsequent determinations. ??Contact the Clinical Chemistry Laboratory if there are any qu estions. Chloride 106 98 - 107 mmol/L [facility] CO2 19 (L) 22 - 31 mmol/L [facility] Anion Gap 18 (H) 5 - 15 mmol/L [facility] Calcium 9.0 8.5 - 10.5 mg/dL [facility] Estimated GFR 42 (L) >=60 mL/min/1.73 m?? [facility] Comment: The eGFR was calculated using the CKD-EP I equation. As with all creatinine based estimates of kidney function, eGFR values calculated with the CKD-EPI equation are not accurate in patients wi th acute kidney failure, extremes of body mass or the acutely ill. [email or web address] eGFR 49 (L) >=60 mL/min/1.73 m?? [facility] Comment: The eGFR was calculated using the CKD-EP I equation. As with all creatinine based estimates of kidney function, eGFR values calculated with the CKD-EPI equation are not accurate in patients wi th acute kidney failure, extremes of body mass or the acutely ill. [email or web address] Specimen Anatomical Collection Method Collection Time Receive d Time (Source) Location / / Volume Laterality Blood specimen 04/27/2018 12:19 8 (specimen) PM EDT 12:25 PM EDT Resulting Agency Comment Spec In Lab Alexis Shook MD CHEMISTRY ORDERABLES Performing Organization Address City/State/ZIP [place] [address] documented in this encounter Visit Diagnoses Diagnosis COTTON (dyspnea on exertion) Other dyspnea and respiratory abnormalit y Chronic atrial fibrillation Atrial fibrillation Essential hypertension Unspecified essential hypertension Left ventricular hypertrophy Cardiomegaly documented in this encounter Care Teams Eclectic Doctor Relationship Specialty Start Date End Date Aaliyah Felix APRN PCP - General Family Medicine 03/30/17 02/08/19 [address] [place] [address] documented as of this encounter
--- OUTSIDE RECORDS SUMMARY | 2022-04-14 13:31 | XMS_ITS | Encounter Summary ---
:1940 Author Organization [facility] [place] [address] Care Team Providers Name Role Phone Matt Duncan MD Primary Care Provider Reason for Visit Reason Comments Procedure Encounter Details Date Type Department Care Team Description 04/28/2016 [facility] palmira [facility] Kelly Bridges MD [address] [place] [address] [facility] [place], [place] [address] Social History Tobacco Use Types Packs/Day Years Used Date Never Smoker Smokeless Tobacco: Never Used Alcohol Use Standard Drinks/Week Comments No 0 (1 standard drink = 0.6 oz pure alcoho l) Sex Assigned at Date Recorded Not on file documented as of this encounter Patient Instructions Patient InstructionsElena Everett LPN - 04/28/2016 1:45 PM EDT Treatment and Wound Care Instructions Your treatment today: You have had an Electrodessication and Curretage (ED&C) of your skin, which is a method to remove skin cancer. This wound will heal without stitches. Allow 3-6 weeks for the wound to heal. If bleeding occurs, hold firm pressure against the wound for 15 minutes. If bleeding continues, calls the office or go to your local emergency room. Wound Care Instructions: You will need to [...] or concerns, please call the office at [phone]. If it is after 5PM, or a holiday or weekend, please call [phone] and ask for the Wheel Presser on-call. documented in this encounter Progress Notes Sakshi Meek MD - 04/28/2016 1:45 PM EDT DERMATOLOGY ESTABLISHED PATIENT CLINIC NOTE Date of service: 04/28/2016 Reinier Ramirez : 1940 Provider: Sakshi Meek MD Chief Complaint Patient presents with ??? Procedure SKIN HISTORY: MELANOMA PATHOLOGY REPORT: 1. Melanoma-right forearm-2010, negative lymph nodes. - Pt brought path report from re-excision of lesion on right forearm, but no original biopsy: Moderately atypical junctional Melanocytic proliferation residual. No evidence of Melanoma Margins are free. 2. 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 BCC right clavicle s/p ED&C 4. Actinic keratosis-( -02/14/15, - 05/16/15, - 12/12/15 ) HPI Reinier Ramirez is a 76 y.o. year old male, established patient last seen by me on 04/14/2016. Here today for an ED&C procedure to a biopsy proven BCC on his left preauricular. He denies any questions or concerns. MEDS: Current Outpatient Prescriptions Medication Sig Dispense Refill ??? meclizine (ANTIVERT) 25 mg Tablet Take 25 mg by mouth daily. ??? simvastatin (ZOCOR) 10 mg Tablet Take 1 tablet by mouth nightly. One daily 90 tablet 3 ??? atenolol (TENORMIN) 25 mg Tablet Take 1 tablet by mouth daily. Indications: atrial fibrillation 90 tablet 3 ??? losartan (COZAAR) 50 mg Tablet Take 1 tablet by mouth daily. 90 tablet 3 ??? rivaroxaban (XARELTO) 20 mg Tablet Take 1 tablet by mouth daily. 90 tablet 3 ??? aspirin 81 mg chewable tablet Take 81 mg by mouth daily. No current facility-administered medications for this visit. ADR: No Known Allergies ROS General: feeling well Skin: denies other skin complaints EXAM General: NAD, pleasant, cooperative Skin: A focused skin exam was performed to the left preauricular area. Significant skin findings: A. Left Preauricular: 0.6 cm heme crusted papule ASSESSMENT/PLAN: A. Biopsy Proven Basal Cell Carcinoma -I re discussed the nature of a BCC -I reminded him this procedure has a higher risk or reoccurrence vs having Mohs, and larger/less cosmetic scar. -Patient elected to continue with the ED&C procedure. Procedure: Destruction of lesion. Site: Left Preauricular area. Discussed indications and expectations including risks and benefits. Verbal consent obtained. Skin prep. Local anesthesia: buffered 1% lidocaine with epinephrine. The entire lesion plus a small margin was treated by curettage and electrode siccation. Post-curettage defect size: 1.6cm. No complications. Wound dressed. Expectations (including discomfort management) and wound care reviewed. Follow up: Reminder in the system for 01/09/17 for a full skin examination, sooner if needed. Instructed to call with questions or concerns. I am documenting this encounter acting as the scribe for and in the presence of Dr. Meek: ELENA EVERETT LPN I performed the above scribed service and agree with the accuracy of the documentation in this encounter. Sakshi Meek MD Smoking Tobacco Cutter Operator of Dermatology, Department of Cash Posting RepresentativeSmoking Tobacco Cutter Operatoreducation consultant (Dermatopathology) [facility] documented in this encounter Plan of Treatment Not on filedocumented as of this encounter Visit Diagnoses Diagnosis Basal cell carcinoma Basal cell carcinoma of skin, site unspe cified documented in this encounter Care Teams Commercial Ocean Clammer Relationship Specialty Start Date End Date Matt Duncan MD PCP - General 04/28/13 11/30/16 ATUL [address] [place] [address] documented as of this encounter
--- OUTSIDE RECORDS SUMMARY | 2022-04-14 13:31 | XMS_ITS | Encounter Summary ---
:1940 Author Organization [facility] [place] [address] Care Team Providers Name Role Phone Aaliyah Felix APRN Primary Care Provider Encounter Details Date Type Department Care Team Description 04/07/2017 Telephone Cardiology at [facility] Cherelle Shields, [place] [address] Social History Tobacco Use Types Packs/Day Years Used Date Never Smoker Smokeless Tobacco: Never Used Alcohol Use Standard Drinks/Week Comments No 0 (1 standard drink = 0.6 oz pure alcoho l) Sex Assigned at Date Recorded Not on file documented as of this encounter Miscellaneous Notes Telephone Encounter - Cherelle Shields, RN - 04/07/2017 12:08 PM EDT Pt's called requesting that MD call pt at [phone] to relay results of echo and decision regarding knee surgery. Relayed message to MD. documented in this encounter Plan of Treatment Not on filedocumented as of this encounter Visit Diagnoses Not on filedocumented in this encounter Care Teams Communication Assistant Relationship Specialty Start Date End Date Aaliyah Felix APRN PCP - General Family Medicine 03/30/17 02/08/19 [place] [address] documented as of this encounter
--- OUTSIDE RECORDS SUMMARY | 2022-04-14 13:31 | XMS_ITS | Encounter Summary ---
:1940 Author Organization [facility] [place] [address] Care Team Providers Name Role Phone Matt Duncan MD Primary Care Provider Encounter Details Date Type Department Care Team Description 04/22/2016 Telephone [facility]ology [facility] Sakshi Rojo MD [address] [place] [address] [facility] [phone] [place], [place] [address] (Wo rk) Social History Tobacco Use Types Packs/Day Years Used Date Never Smoker Smokeless Tobacco: Never Used Alcohol Use Standard Drinks/Week Comments No 0 (1 standard drink = 0.6 oz pure alcoho l) Sex Assigned at Date Recorded Not on file documented as of this encounter Miscellaneous Notes Telephone Encounter - Elena Everett LPN - 04/22/2016 9:51 AM EDT Spoke with patient and . Per Dr. Meek: There is no Mohs surgeon who could do this in their short time frame. ??The options are: 1. I will ED&C it, which is a good treatment for this type of BCC, although the scar may be less cosmetic and the change of it coming back is slightly higher than Mohs surgery, but still very good option. ??2. They could delay their travel and have Mohs in [place] in the next couple of weeks. ??3. We could help them set up an appointment with a sand buffer wherever they are going in [place]. Patient verbalized understanding and reports he will have the ED&C procedure. Bushnell will call to schedule. Encouraged to call our clinic with any further questions or concerns. ELENA EVERETT LPN documented in this encounter Plan of Treatment Not on filedocumented as of this encounter Visit Diagnoses Not on filedocumented in this encounter Care Teams Box Liner Relationship Specialty Start Date End Date Matt Duncan MD PCP - General 04/28/13 11/30/16 ATUL [address] [place] [address] documented as of this encounter
--- OUTSIDE RECORDS SUMMARY | 2022-04-14 13:31 | XMS_ITS | Encounter Summary ---
:1940 Author Organization [facility] [place] [address] Care Team Providers Name Role Phone IsidroAaliyah CHRISTELLE Primary Care Provider Reason for Visit Diagnostic Test (Routine) - Closed Specialty Diagnoses / Procedures Referred By Contact Refer red To Contact Radiology Diagnoses COTTON (dyspnea on exertion) Abnormal echocardiogram Alexis Shook MD [facility] Rad Nuclear Med Procedures NM Myocardial Perfusion Scan Pharmacologic [facility] [place] [address] [place] [address] Fax: Referral ID Status Reason Start Date Expiration Date Visits V isits Requested Authorized [id number] Closed Specialty 04/07/2017 04/07/2018 1 1 Service Requested Encounter Details Date Type Department Care Team Description 04/22/2017 Hospital Encounter Nuclear Medicine at [facility] Shook on, Mallory Brooke [place] [address] CARDIOLOGY DEPT. [phone] [place], [place] [address] (Wo rk) Social History Tobacco [...] ults echocardiogram section. documented in this encounter Visit Diagnoses Not on filedocumented in this encounter Administered Medications Inactive Administered Medications - up to 3 most recent administrations Medication Order MAR Action Action Date Dose Rate Site regadenoson (LEXISCAN) injection Given 04/22/2017 11:30 AM EDT 0 .4 mg 0.4 mg 0.4 mg, Intravenous, ONCE, 1 dose, On Diane 04/22/17 at 1200, Routine technetium (Tc-99m) sestamibi injection Given 04/22/2017 11:32 A M EDT 25.8 mCi 25.8 mCi 25.8 mCi, Intravenous, ONCE PRN, 1 dose, Starting on Diane 04/22/17 at 1132, Until Diane 04/22/17 at 1132, Per Protocol, Routine documented in this encounter Care Teams Doctor Naturopathic Relationship Specialty Start Date End Date Aaliyah Felix APRN PCP - General Family Medicine 03/30/17 02/08/19 [place] [address] documented as of this encounter
--- OUTSIDE RECORDS SUMMARY | 2022-04-14 13:31 | XMS_ITS | Encounter Summary ---
:1940 Author Organization [facility] Address [facility] [place] [address] Care Team Providers Name Role Phone Aaliyah Felix APRN Primary Care Provider Reason for Visit Reason Comments Skin Check Encounter Details Date Type Department Care Team Description 02/18/2018 Office Visit Dermatology at [facility] [place] (actinic keratosis); Kelly Bridges MD History of melanoma; [address] [facility] History [place] [address] [facility] [place], [place] [address] Social History Tobacco Use Types Packs/Day Years Used Date Never Smoker Smokeless Tobacco: Never Used Alcohol Use Standard Drinks/Week Comments No 0 (1 standard drink = 0.6 oz pure alcoho l) Sex Assigned at Date Recorded Not on file documented as of this encounter Progress Notes Blanca Meek MD - 02/18/2018 10:15 AM EDT DERMATOLOGY ESTABLISHED PATIENT CLINIC NOTE Date of service: 02/18/2018 Reinier Ramirez : 1940 Provider: Blanca Meek MD Chief Complaint Patient presents with [...] Ramirez is a 77 y.o. year old male. Presents for full skin cancer screening. Complains of asymptomatic lesion on the left upper forehead first identified a couple of weeks ago. Also complains of a scaly lesion on the right dorsal wrist first identified a couple months ago. ADR: Allergies Allergen Reactions ??? Gphuiys-Xim-Vxf Reductase Inhibitors Swelling in joints MEDS: Current Outpatient Prescriptions Medication Sig Dispense [...] No current facility-administered medications for this visit. ROS General: feeling well Skin: denies other skin complaints EXAM General: NAD, pleasant, cooperative Skin: Patient was asked to disrobe to the level of their comfort. A total body skin exam except for areas covered by underwear was performed. This includes examination of the skin of the face, ears, neck, chest, axillae, left and right upper and lower extremities, hands and feet, abdomen, and except the areas covered by underwear were not examined. Significant skin findings: A. Right forearm: well healed scar s/p excision. No LAD B. Left nasal ala, right clavicle and left preauricular: healing surgical site s/p Mohs and ED&C. C. Right forearm: well healed scar s/p biopsy. D. 0.2-0.3cm scaly irregular pink papule(s) on the right forearm x 5, left forearm x 1, left jain x 2, left malar cheek x 1, nasal dorsum x 1, right cheek x 1, right jain x 1, hypertrophic AK on the right wrist x 1, ASSESSMENT/PLAN: A. History of melanoma - No cervical, supraclavicular or axillary lymphadenopathy noted. - No evidence of recurrence. - Continue to monitor. ?? B. History of BCC - s/p recent Mohs, suture removal planned for later today on ala, other sites show no evidence of recurrence. - Continue to monitor. ?? C. History of SCC in situ - No evidence of recurrence. - Continue to monitor. D. Actinic keratosis - Discussed premalignent potential of these lesions. - Discussed that a surgical procedure would likely be needed if these were to progress to skin cancer. - Shared decision to proceed with LN2 treatment at this time: ?? Procedure Note: Procedure: Destruction of lesions with cryotherapy. Number: 13 Location: as above Discussed procedure and expectations including risks (including risk of hypopigmentation) and benefits. Verbal consent obtained. Frozen with LN2, 15-30 second thaw time, TWICE. There were no complications; the patient tolerated the procedure well. Post-procedure expectations and wound care were reviewed. FOLLOW UP: March for follow up on treated lesions, before he goes to [place], or sooner as needed I am documenting this encounter acting as the scribe for and in the presence of Dr. Meek.: ALEXIS RIVERA LPN I, Paul Vences, have performed the documentation for this encounter in the presence of and acting as a scribe for BLANCA MEEK MD. I performed the above scribed service and agree with the accuracy of the documentation in this encounter. Blanca Meek MD Collection Support Specialist of Dermatology, Department of Underwriting AnalystCollection Support Specialistsupervisor warping department (Dermatopathology) [facility] documented in this encounter Plan of Treatment Not on filedocumented as of this encounter Visit Diagnoses Diagnosis AK (actinic keratosis) Actinic keratosis History of melanoma Personal history of malignant melanoma o f skin History of nonmelanoma skin cancer Personal history of other malignant neop lasm of skin documented in this encounter Care Teams Rn Telephone Triage Relationship Specialty Start Date End Date Aaliyah Felix APRN PCP - General Family Medicine 03/30/17 02/08/19 [address] [place] [address] documented as of this encounter
--- OUTSIDE RECORDS SUMMARY | 2022-04-14 13:31 | XMS_ITS | Encounter Summary ---
:1940 Author Organization [facility] [place] [address] Care Team Providers Name Role Phone KevinAaliyah soriano CHRISTELLE Primary Care Provider Encounter Details Date Type Department Care Team Description 05/17/2018 Office Visit Cardiology at [facility] Alexis Shook, (HFpEF) heart failure with p reserved ejection fraction; [facility] Chronic [place] [address] CARDIOLOGY DEPT. [phone] [place], [place] [address] Social History Tobacco Use Types Packs/Day Years Used Date Never Smoker Smokeless Tobacco: Never Used Alcohol Use Standard Drinks/Week Comments No 0 (1 standard drink = 0.6 oz pure alcoho l) Sex Assigned at Date Recorded Not on file documented as of this encounter Last Filed Vital Signs Vital Sign Reading Time Taken Comments Blood Pressure 114/70 05/17/2018 8:29 AM EDT Pulse 81 05/17/2018 8:29 AM EDT Temperature - - Respiratory Rate - - Oxygen Saturation 95% 05/17/2018 8:29 AM EDT Inhaled Oxygen Concentration - - Weight 122 kg (269 lb) 05/17/2018 8:29 AM EDT Height - - Body Mass Index 37.52 04/27/2018 11:17 AM EDT documented in this encounter Patient Instructions Patient InstructionsAlexis Shook MD - 05/17/2018 8:40 AM EDT 1. Change lasix (furosemide) to alternating 10 mg and 20 mg daily 2. OK to travel 3. Cardiology follow-up in 8 months documented in this encounter Progress Notes Alexis Shook MD - 05/17/2018 8:40 AM EDT Images from the original note were not included. [facility] [place] [address] CARDIOLOGY OUTPATIENT FOLLOW-UP NOTE Reinier La Ashley [id number] PCP: Aaliyah Felix APRN 05/17/2018 PRIMARY CARE PROVIDER: Aaliyah Felix APRN PROBLEM LIST: Patient Active Problem List Diagnosis ??? Rupture of right quadriceps tendon ??? Rupture of left quadriceps tendon ??? Primary osteoarthritis of both knees ??? Chronic pain of both knees ??? Possible ASCVD (arteriosclerotic cardiovascular disease) ?? Inferior wall motion abnormalities on echo's at [facility] 02/15/14 and 03/30/17 ?? Nuclear stress test at [facility] 10/26/16 showing normal perfusion ?? Cardia Edmund March 30, 2017 showing normal left ventricular size, ejection fraction 60%, andwall motion abnormalities with inferior hypokinesia. ?? Regadenoson sestamibi [facility] April 22, 2017 showing normal perfusion; normal wall thickening ??? MICK (obstructive sleep apnea) ??? Morbid obesity ??? Bilateral leg weakness ??? Chronic atrial fibrillation ?? Diagnosed 11/2013, without symptoms during visit with electric vehicle electrician, ?? Asymptomatic ?? [id number] score = 2 (age and HTN) ??? Hypertension ??? Diverticulosis ??? Left ventricular hypertrophy -TTE 02/17/2014 shows eccentric left ventricular enlargement (moderate LV dilation with LVEDD 6.3cm, normal LVEF 55%, no concentric LVH) ??? AK (actinic keratosis) ??? History of melanoma MEDICATIONS: Current Outpatient Medications Medication Sig Dispense Refill ??? potassium chloride (KLOR-CON) 20 mEq Packet Take 20 mEq by mouth daily. ??? losartan (COZAAR) 25 mg Tablet Take [...] follow-up visit. He has chronic atrial fibrillation, history of hypertension, and suspected coronary artery disease on the basis of some inferior wall motion abnormalities on remote echocardiograms. His last stress test was in April 2017 and showed normal pe rfusion (a nuclear pharmacologic study). In recent times he has had problems with shortness of breath and lower extremity edema. He was put on Lasix with some improvement although treatment has been complicated by a drop in his blood pressure. At his last visit I recommended that he reduce his losartan dosage. He comes today indicating that he is fairly stable. He says he feels about the same as he did 6 months ago without any major issues with edema or shortness of breath. He is not experiencing chest pain. OBJECTIVE: Vital Signs: BP 114/70 Pulse 81 Wt 122 kg (269 lb) SpO2 95% BMI 37.52 kg/m?? Physical Exam: On exam today he appeared in no acute distress. His color was good. His vital signs are documented above. His jugular venous pressures were difficult to assess and did not appear clearlyelevated. His lungs were notable for a few crackles at his left base. His heart exam revealed an irregularly irregular rhythm at a controlled rate. He had no murmurs. His abdomen was soft and nontender. He had a trace to 1+ edema below the knees bilaterally. ASSESSMENT: Although he is doing better and his blood pressure has come up into a more reasonable range absent the losartan, he continues to have some evidence of fluid overload with rales on exam and an elevated proBNP of about 1600. I recommended that he increase his Lasix slightly to alternating 10and 20 mg doses. Planning to travel south and has a integrated marketing specialist in [place] with whom he will follow-up. PLAN: 1. Increase Lasix to alternating 10 mg and 20 mg daily 2. Avoid excessive salt 3. Follow-up with integrated marketing specialist in [place] as scheduled 4. Routine cardiology follow-up with me in 8 months (upon his return from [place] documented in this encounter Plan of Treatment Not on filedocumented as of this encounter Visit Diagnoses Diagnosis (HFpEF) heart failure with preserved eje ction fraction Chronic atrial fibrillation Atrial fibrillation documented in this encounter Care Teams E Learning Coordinator Relationship Specialty Start Date End Date Aaliyah Felix APRN PCP - General Family Medicine 03/30/17 02/08/19 [address] [place] [address] documented as of this encounter
--- OUTSIDE RECORDS SUMMARY | 2022-04-14 13:31 | XMS_ITS | Encounter Summary ---
:1940 Author Organization [place] [address] Care Team Providers Name Role Phone KevinAaliyah soriano JAVA FLEX DEVELOPER Primary Care Provider Encounter Details Date Type Department Care Team Description 03/30/2017 Laboratory Appointment Lab 3L [facility] Chronic atrial fibrillation; [facility] Essential hypertension; [facility] [place] [address] Social History Tobacco Use Types Packs/Day Years Used Date Never Smoker Smokeless Tobacco: Never Used Alcohol Use Standard Drinks/Week Comments No 0 (1 standard drink = 0.6 oz pure alcoho l) Sex Assigned at Date Recorded Not on file documented as of this encounter Plan of Treatment Not on filedocumented as of this encounter Procedures Procedure Name Priority Date/Time Associated Diagnosis Comme nts BASIC METABOLIC Routine 03/30/2017 9:27 AM Chronic atrial Resu lts for this PANEL (NON-FASTING) EDT fibrillation procedure are in Essential the results hypertension section. Left ventricular hypertrophy documented in this encounter Results (ABNORMAL) Basic Metabolic Panel (non-fasting) (03/30/2017 9:27 AM EDT) P athologist Signature Glucose Lvl 134 65 - 199 [facility] mg/dL [facility] Comment: Diabetes: >=200 mg/dL plus symp toms BUN 26 (H) 10 - 20 mg/dL [facility] Creatinine 1.62 (H) 0.80 - 1.50 mg/dL [facility] Comment: Please note that the pediatric reference intervals supplied above were not validated at [facility]. Results from pediatri c patients should be interpreted in conjunction to the patient's age, height and muscle mass. Sodium 140 135 - 145 mmol/L [facility] Potassium 4.3 3.5 - 5.0 mmol/L [facility] Comment: Please note: ??Patients with WBC >100,00 0 may have falsely elevated Potassium levels. ??For accurate Potassium quantif ication in these patients send serum separator tube (gold top) for subsequent determinations. ??Contact the Clinical Chemistry Laboratory if there are any qu estions. Chloride 105 98 - 107 mmol/L [facility] CO2 21 (L) 22 - 31 mmol/L [facility] Anion Gap 14 5 - 15 mmol/L [facility] Calcium 9.0 8.5 - 10.5 mg/dL [facility] Estimated GFR 42 (L) >=60 [facility] Comment: This estimated GFR (eGFR) [...] the following links into your internet browser. [email or web address] [email or web address] Specimen Anatomical Collection Method Collection Time Receive d Time (Source) Location / / Volume Laterality Blood specimen 03/30/2017 9:27 AM 017 9:34 (specimen) EDT AM EDT Resulting Agency Comment Spec In Lab Alexis Shook MD CHEMISTRY ORDERABLES Performing Organization Address City/State/[place] [address] documented in this encounter Visit Diagnoses Diagnosis Chronic atrial fibrillation Atrial fibrillation Essential hypertension Unspecified essential hypertension Left ventricular hypertrophy Cardiomegaly documented in this encounter Care Teams Cementer Machine Joiner Relationship Specialty Start Date End Date Aaliyah Felix APRN PCP - General Family Medicine 03/30/17 02/08/19 [address] [place] [address] documented as of this encounter
--- OUTSIDE RECORDS SUMMARY | 2022-04-14 13:31 | XMS_ITS | Encounter Summary ---
:1940 Author Organization [facility] [place] [address] Care Team Providers Name Role Phone IsidroAaliyah CHRISTELLE Primary Care Provider Encounter Details Date Type Department Care Team Description 04/01/2018 [facility] [place] [address] CARDIOLOGY DEPT. [phone] [place], [place] [address] (Wo rk) Social History Tobacco Use Types Packs/Day Years Used Date Never Smoker Smokeless Tobacco: Never Used Alcohol Use Standard Drinks/Week Comments No 0 (1 standard drink = 0.6 oz pure alcoho l) Sex Assigned at Date Recorded Not on file documented as of this encounter Medications at Time of Discharge Medication Sig Dispensed Refills Start Date End Date finasteride (PROSCAR) 5 Take 5 mg by mouth 0 mg Tablet daily. atenolol (TENORMIN) 25 mg Take 1 tablet by 90 tablet 3 02/201804/18/2019 TabletIndications: mouth daily. Chronic atrial fibrillation, Essential hypertension, Left ventricular hypertrophy losartan (COZAAR) 50 mg Take 1 tablet by 90 tablet 3 201704/27/2018 TabletIndications: mouth daily. Chronic atrial fibrillation, Essential [...] Associated Diagnosis Comme nts FILM LIBRARY Routine 04/01/2018 12:00 AM Results for this STORAGE ONLY DX EDT procedure ar e in CHEST the results section. documented in this encounter Results Film Library- Storage Only DX Chest (04/01/2018 12:00 AM EDT) Specimen (Source) Anatomical Location Collection Method / Collectio n Time Received Time / Laterality Volume Narrative [facility] - 04/13/2018 12:35 PM EDT This exam is for storage only and is aut o-finalizing. Alexis Shook MD IMG FILM LIBRARY ORDERABLES Performing Organization Address City/State/ZIP Code Phon e Number [place], [place] documented in this encounter Visit Diagnoses Not on filedocumented in this encounter Care Teams Shellfish Farming Supervisor Relationship Specialty Start Date End Date Aaliyah Felix APRN PCP - General Family Medicine 03/30/17 02/08/19 [place] [address] documented as of this encounter
--- OUTSIDE RECORDS SUMMARY | 2022-04-14 13:31 | XMS_ITS | Encounter Summary ---
:1940 Author Organization [facility] [place] [address] Care Team Providers Name Role Phone IsidroAaliyah CHRISTELLE Primary Care Provider Reason for Visit Diagnostic Test (Routine) - Closed Specialty Diagnoses / Procedures Referred By Contact Refer red To Contact Radiology Diagnoses [place]OTTON (dyspnea on exertion) Abnormal echocardiogram Alexis Shook MD [facility] Rad Nuclear Med Procedures NM Myocardial Perfusion Scan Pharmacologic [facility] [place] [address] [place] [address] Fax: Referral ID Status Reason Start Date Expiration Date Visits V isits Requested Authorized [id number] Closed Specialty 04/07/2017 04/07/2018 1 1 Service Requested Encounter Details Date Type Department Care Team Description 04/22/2017 Hospital Encounter Nuclear Medicine at [facility]hin[facility] Shook on, Mallory Brooke MD [facility] [place] [address] CARDIOLOGY DEPT. [phone] [place], [place] [address] (Wo rk) Social History Tobacco [...] procedure are in MYOCARDIAL PERFUSION Abnormal the [facility] ults echocardiogram section. documented in this encounter [...] at 04/22/2017 4:21 PM Alexis Shook MD [facility] [place] ORDERABLES documented in this encounter Visit Diagnoses Not on filedocumented in this encounter Care Teams Distribution Field Technician Relationship Specialty Start Date End Date Aaliyah Felix APRN PCP - General Family Medicine 03/30/17 02/08/19 [place] [address] documented as of this encounter
--- OUTSIDE RECORDS SUMMARY | 2022-04-14 13:32 | XMS_ITS | Encounter Summary ---
:1940 Author Organization [facility] Address [address] [place] [address] Care Team Providers Name Role Phone Matt Duncan MD Primary Care Provider Reason for Visit Reason Comments Follow-up Encounter Details Date Type Department Care Team Description 05/16/2015 Office Visit Dermatology at [facility] Sakshi Meek [place] (actinic keratosis); Kelly Bridges MD SK (seborrheic keratosis); [address] [facility] History of melanoma; [place] [address] Xerosis of skin [phone] [facility] [place], [place] [address] Social History Tobacco Use Types Packs/Day Years Used Date Never Smoker Smokeless Tobacco: Never Used Alcohol Use Standard Drinks/Week Comments No 0 (1 standard drink = 0.6 oz pure alcoho l) Sex Assigned at Date Recorded Not on file documented as of this encounter Patient Instructions Patient InstructionsKelly Donnelly - 05/16/2015 10:35 AM EDT Actinic Keratoses You have been [...] weeks. Please contact the Dermatology clinic at [phone] if the lesion has not fully resolved after 6 weeks. If you are calling after hours, please call the mainline at [phone] and ask for the wrecker operator manager online. documented in this encounter Progress Notes Sakshi Meek MD - 05/16/2015 10:11 AM EDT DERMATOLOGY ESTABLISHED PATIENT CLINIC NOTE Date of service: 05/16/2015 Reinier Ramirez : 1940 Provider: Sakshi Meek MD Chief Complaint Patient presents with ??? Follow-up SKIN HISTORY: MELANOMA PATHOLOGY REPORT: 1. Melanoma-right forearm-2010, negative lymph nodes. - Pt brought path report from re-excision of lesion on right forearm, but no original biopsy: Moderately atypical junctional Melanocytic proliferation residual. No evidence of Melanoma Margins are free. 2. 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 BCC right clavicle s/p ED&C 4. Actinic heabuitun-15-59/30/15 HPI Reinier Ramirez is a 75 y.o. year old male, established patient last seen by me on 02/14/2015. Patient presents to the clinic today for a 3 month full skin check. Patient reports a itchy back since the weather has gotten colder. He reports no other new skin concerns. Patient states that he will be leaving for [place] and [place] in 2 weeks and will return in spring. ?? 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 MEDS: Current Outpatient Prescriptions Medication Sig Dispense [...] EXAM General: NAD, pleasant, cooperative Skin: A total body skin exam except for areas covered by underwear was performed. This includes examination of the skin of the scalp, face, ears, neck, chest, axillae, left and right upper and lower extremities, hands and feet, abdomen, and except the areas covered by underwear were not examined. Significant skin findings: A. Right dorsal hand and forearm x 4, left dorsal hand and forearm x 7, scattered on the face x 6: 0.2-0.3cm scaly irregular pink papules B. Back: Dry patches C. Bilateral legs: 0.4-0.6 cm pink-brown papules/plaque with waxy stuck on appearance. D. Melanoma scar palpated. No induration or repigmentation at this site. No cervical, axillary lymphadenopathy. ASSESSMENT/PLAN: A. Actinic Keratosis Discussed premalignant potential of lesions with patient and counseled that destruction with liquid nitrogen therapy is recommended. Patient agreed to the procedure after discussing risks/benefits/alternatives of the procedure, including hypopigmentation and discomfort. Wound care reviewed. Procedure Note: Procedure: Destruction of lesions with cryotherapy. Number: 17 Location: as above Discussed procedure and expectations including risks (including risk of hypopigmentation) and benefits. Verbal consent obtained. Frozen with LN2, 15-30 second thaw time, TWICE. There were no complications; the patient tolerated the procedure well. Post-procedure expectations and wound care were reviewed. B. Xerosis ?? CeraVe cream was recommended C. Seborrheic keratosis ?? Discussed benign nature of lesion and provided reassurance. No treatment necessary at this time. D. History of melanoma. No evidence of recurrence. ?? Discussed importance of sun protection, sun avoidance strategies, protective clothing, and sunscreen. I discussed warning signs for skin cancer, including the ABCE's of melanoma. Follow up: November or December when patient returns from [place] for full skin exam, patient scheduled on the way out of the clinic today, sooner if needed. Instructed to call with questions or concerns. I am documenting this encounter acting as the scribe for and in the presence of Dr. Meek: Kelly Donnelly, Clinical Scribe I performed the above scribed service and agree with the accuracy of the documentation in this encounter. Sakshi Meek MD Senior Corporate Strategy Manager of Dermatology, Department of A/C TechnicianSenior Corporate Strategy Managerwine pasteurizer (Dermatopathology) [facility] documented in this encounter Plan of Treatment Not on filedocumented as of this encounter Visit Diagnoses Diagnosis AK (actinic keratosis) Actinic keratosis SK (seborrheic keratosis) Other seborrheic keratosis History of melanoma Personal history of malignant melanoma o f skin Xerosis of skin Other specified disease of sebaceous gla nds documented in this encounter Care Teams Nurs[employer] Executive Director Relationship Specialty Start Date End Date Matt Duncan MD PCP - General 04/28/13 11/30/16 [facility] [address] [place] [address] documented as of this encounter"
--- OUTSIDE RECORDS SUMMARY | 2022-04-14 13:32 | XMS_ITS | Encounter Summary ---
:1940 Author Organization [facility] Address [address] [place] [address] Care Team Providers Name Role Phone Matt Duncan MD Primary Care Provider Reason for Visit Reason Comments Skin Check Encounter Details Date Type Department Care Team Description 12/12/2015 [facility] [place] ([facility]inic keratosis); Kelly Bridges MD History of melanoma; [address] [facility] Seborrheic keratosis; [place] [address] History of SCC (squamous cell carcinoma) of skin; [phone] [facility] History of basa l cell cancer [address] [place], [place] [address] Social History Tobacco Use Types Packs/Day Years Used Date Never Smoker Smokeless Tobacco: Never Used Alcohol Use Standard Drinks/Week Comments No 0 (1 standard drink = 0.6 oz pure alcoho l) Sex Assigned at Date Recorded Not on file documented as of this encounter Patient Instructions Patient InstructionsParkerKelly hale Verónica - 12/12/2015 9:35 AM EDT Actinic Keratoses You have been [...] weeks. Please contact the Dermatology clinic at [phone] if the lesion has not fully resolved after 6 weeks. If you are calling after hours, please call the mainline at [phone] and ask for the zigzag tunnel elastic operator optimization engineer. documented in this encounter Progress Notes Sakshi Meek MD - 12/12/2015 9:24 AM EDT DERMATOLOGY ESTABLISHED PATIENT CLINIC NOTE Date of service: 12/12/2015 Reinier Ramirez : 1940 Provider: Sakshi Meek [...] BCC right clavicle s/p ED&C 4. Actinic ycjosjlqp-32-85/30/15 HPI Reinier Ramirez is a 75 y.o. year old male, established patient to Dermatology, last seen by me on 05/16/2015. Patient presents to the clinic today for a full skin check. He reports no other new skin concerns. MEDS: Current Outpatient Prescriptions Medication Sig Dispense Refill ??? simvastatin (ZOCOR) 10 mg Tablet Take 10 mg by mouth nightly. One daily ??? atenolol (TENORMIN) 25 mg Tablet Take [...] pleasant, cooperative Skin: Patient was asked to dress to their comfort level for today's exam. The entire skin surface was examined, including the face, neck, chest, abdomen, back. The arms and legs, including the palms, soles, fingers and between the toes. No lymphadenopathy, including the supraclavicular, cervical, axillary, and inguinal areas. Melanoma excision site scar was examined and palpated. There was no increase in pigmentation or induration at this site. Significant skin findings: A. Right superior helix x 1, right catholic x 3, right cheek x 3, left cheek x 4, left ear x 1, nasal tip x 1, forehead x 2, right dorsal hand x 1, left dorsal hand x 1: 0.2-0.3cm scaly irregular pink papules Total: 17 B. Melanoma scar palpated. No induration or repigmentation at this site. No cervical, axillary lymphadenopathy. C. Bilateral legs: 0.4-0.6 cm pink-brown papules/plaque with waxy stuck on appearance. ASSESSMENT/PLAN: A. Actinic Keratosis Discussed premalignant potential [...] expectations and wound care were reviewed. B. History of melanoma. No evidence of recurrence. - Discussed importance of sun protection, sun avoidance strategies, protective clothing, and sunscreen. I discussed warning signs for skin cancer, including the ABCE's of melanoma. C. Seborrheic keratosis - Discussed benign nature of lesion and provided reassurance. No treatment necessary at this time. Follow up: Return to clinic in March 2016 for melanoma skin exam, or sooner if needed. Patient scheduled upon exiting. Patient instructed to call with questions or concerns. Note initiated by Yen Mccarthy LPN. Kelly Andrzej has performed the documentation for this encounter in the presence of and acting as a scribe for Dr. Sakshi Meek MD Claim Manager of Dermatology, Department of Mechanical Product Design EngineerClaim Managersuperintendent operating (Dermatopathology) [facility] documented in this encounter Plan of Treatment Not on filedocumented as of this encounter Visit Diagnoses Diagnosis AK (actinic keratosis) Actinic keratosis History of melanoma Personal history of malignant melanoma o f skin Seborrheic keratosis Other seborrheic keratosis History of SCC (squamous cell carcinoma) of skin Personal history of other malignant neop lasm of skin History of basal cell cancer Personal history of other malignant neop lasm of skin documented in this encounter Care Teams Cream Ripener Relationship Specialty Start Date End Date Matt Duncan MD PCP - General 04/28/13 11/30/16 [facility] [address] [place] [address] documented as of this encounter
--- OUTSIDE RECORDS SUMMARY | 2022-04-14 13:32 | XMS_ITS | Encounter Summary ---
:1940 Author Organization [facility] [place] [address] Care Team Providers Name Role Phone Matt Duncan MD Primary Care Provider Reason for Visit Reason Comments Skin Check Encounter Details Date Type Department Care Team Description 04/28/2013 Follow-Up Dermatology at Abhinav Mata MD [place] (actinic keratosis) (Primary Dx); [facility] History of melanoma; [address] [place] [address] [facility] [phone] [address] [place] [address] (Wo rk) Social History Tobacco Use Types Packs/Day Years Used Date Never Smoker Sex Assigned at Date Recorded Not on file documented as of this encounter Progress Notes Toro Blackburn MD - 05/21/2013 9:25 AM EST I directly supervised Dr. Rossi during this office visit. Dr. Rossi presented the history and physical exam to me. I then saw and examined this patient with Dr. Rossi. We reviewed the history andpertinent details and I confirmed the physical findings. I agree with the details of the history and physical exam as documented in Dr. Rossi's note. TORO BLACKBURN MD Staff Physician Huong Rossi MD - 04/28/2013 12:56 PM EDT DERMATOLOGY - ESTABLISHED PATIENT FOLLOW-UP Reinier Ramirez Date of service: 04/28/2013 : 1940 Dermatology Resident Note: Huong Rossi MD Chief Problem: Chief Complaint Patient presents with ??? Skin Check Mr. Reinier Ramirez is a 73 y.o. male. This is an established patient, last seen by me on 01/20/2013. HPI: Mr. Ramirez presents for a 3 month melanoma skin check. He has no new areas of concern. Getting readyto head to [place] and the [facility] for the winter - leaves in about 1 month. Doing well overall. Thinks actinic keratoses treated at last visit have resolved. No residual scaly spots that he has noticed. Tries to be good about protective clothing. Denies: Fever/chills Unexplained weight loss Syncope Shortness of breath Chest pain Stomach pain Blood in stools Lymphadenopathy Other systemic complaints Skin History: - BCC right clavicle s/p ED&C - Pt brought path report from re-excision of lesion on right forearm, but no original biopsy: Moderately atypical junctional Melanocytic proliferation residual. No evidence of Melanoma Margins are free. 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 Medical History: Patient Active Problem List Diagnosis Code ??? History of melanoma V10.82 Medications: aspirin 81 mg EC tablet Allergies: No Known Allergies Family History: No family history of melanoma or non-melanoma skin cancer No family history of atopy, psoriasis or other skin disease Social History: Lives in [place] goes to [place] in [place]; , never a smoker Review of Systems: - General: Feels well. - Skin: As per HPI; no other skin concerns. Examination: - Constitutional: Patient was alert, well-appearing and in no noticeable distress. The entire skin surface was examined, including the face, neck, chest, abdomen, back. The arms and legs, including the palms, soles, fingers and between the toes. No lymphadenopathy, including the supraclavicular, cervical, and axillary areas. Melanoma excision site scar was examined and palpated. There was no increase in pigmentation or induration at this site. Specific skin findings: 1. 0.2-0.3cm scaly irregular pink papule(s)dorsum of hands, forearms,bilateral ears. Right cheek,forehead. 2. Melanoma scar palpated, no evidence of recurrence Diagnosis/Assessment/Treatment Plan: 1. Actinic keratoses - Discussed at length treatment options for actinic keratoses including cryotherapy versus chemical treatment such as 5-FU or PDT. Discussed pros and cons of each including cryotherapy's potential for hypopigmentation and 5-FU's one month treatment course and potential for inflammation. Patient will use Efudex 2 times daily for 3-4 weeks to arms, and hands. Will freeze thickest lesionstoday. 5-fluorouracil prescribed 0.5% cream. Reviewed pamphlet and photographs which detail expectations and typical reaction to treatment. Redness, crusting, swelling and tenderness of treated skin expected to develop during treatment, and is a sign that the medication is working. Warned not to get in eyes. Discussed using medication as tolerated and stopping use for a day or two if inflammation becomes too intense or patient experiences discomfort. For any severe discomfort or side effects, patient wasencouraged to call for further advice and possible evaluation. Procedure Note: Procedure: Destruction of lesion(s) with cryotherapy. Number: 9 Location: as above Discussed procedure and expectations including risks (including risk of hypopigmentation) and benefits. Verbal consent obtained. Frozen with LN2, 15-30 second thaw time, TWICE. There were no complications; the patient tolerated the procedure well. Post-procedure expectations and wound care were reviewed. 2. History of melanoma, NMSC: no evidence of recurrence. Since melanoma in 08/2010, will extend visitto every 6 months until 5 years out. RTC in 6 months. Instructed to call for questions/concerns. Huong Rossi MD Resident in Dermatology [facility] Patient seen and evaluated with staff spare hand carding: Toro Blackburn MD Section of Dermatology [facility] I performed the above scribed service and agree with the accuracy of the documentation in this encounter. documented in this encounter Plan of Treatment Not on filedocumented as of this encounter Visit Diagnoses Diagnosis AK (actinic keratosis) - Primary Actinic keratosis History of melanoma Personal history of malignant melanoma o f skin History of nonmelanoma skin cancer Personal history of other malignant neop lasm of skin documented in this encounter Care Teams Cutter And Paster Press Clippings Relationship Specialty Start Date End Date Matt Duncan MD PCP - General 04/28/13 11/30/16 [facility] [address] [place] [address] documented as of this encounter
--- OUTSIDE RECORDS SUMMARY | 2022-04-14 13:32 | XMS_ITS | Encounter Summary ---
:1940 Author Organization [facility] [place] [address] Care Team Providers Name Role Phone Matt Duncan MD Primary Care Provider Reason for Visit Reason Onset Date Comments Other 04/17/2016 Telephone Other 04/21/2016 Encounter Details Date Type Department Care Team Description 04/17/2016 [facility] Kelly SAUCEDO Other [address] [place] [address] [facility] [place], [place] [address] (Wo rk) Social History Tobacco Use Types Packs/Day Years Used Date Never Smoker Smokeless Tobacco: Never Used Alcohol Use Standard Drinks/Week Comments No 0 (1 standard drink = 0.6 oz pure alcoho l) Sex Assigned at Date Recorded Not on file documented as of this encounter Miscellaneous Notes Telephone Encounter - Robinson Quinones - 04/21/2016 2:20 PM EDT Patient called once more and wants another phone call - [phone] Telephone Encounter - Robinson Quinones - 04/17/2016 4:06 PM EDT Please call cell on Wednesday = [phone] documented in this encounter Plan of Treatment Not on filedocumented as of this encounter Visit Diagnoses Not on filedocumented in this encounter Care Teams Demolition Crane Operator Relationship Specialty Start Date End Date Matt Duncan MD PCP - General 04/28/13 11/30/16 [facility] [address] [place] [address] documented as of this encounter
--- OUTSIDE RECORDS SUMMARY | 2022-04-14 13:32 | XMS_ITS | Encounter Summary ---
:1940 Author Organization [facility] Address [facility] [place] [address] Care Team Providers Name Role Phone Matt Duncan MD Primary Care Provider Encounter Details Date Type Department Care Team Description 01/15/2014 Orders Only ZLEB 4A Solis Estrella MD Palpitations (Primary [facility]x) [place] [address] CARDIOLOGY DEPT [phone] [place] [address] Social History Tobacco Use Types Packs/Day Years Used Date Never Smoker Sex Assigned at Date Recorded Not on file documented as of this encounter Plan of Treatment Not on filedocumented as of this encounter Results Echocardiogram Transthoracic(Leb) (02/15/2014 12:58 PM EDT) P athologist Signature EF 55 HEARTLAB SYSTEM Anatomical Region Laterality Modality Other Specimen (Source) Anatomical Location Collection Method / Collectio n Time Received Time / Laterality Volume 02/15/2014 Narrative 02/15/2014 1:17 PM EDT Procedure: ? Transthoracic Echocardiogram Patient: ? BALAJI La ?(Age): 1940(73) Med Rec#: ?[id number] ? Sex: ?M ? [place] [place] Ht / Wt: ??180(cm)/109.5(k Pt. Loc: ? Echo Lab ? BSA: ?2.34 Study Date: ?02/15/2014 ? Pt. Type: Outpatient Tape: ? Referring: Jackson Silver Fisher Lampara Net: Jeevan Hernandez MS, [facility] Diagnosis: ??Palpitations (785.1) CPT Code(s): ??Color Doppler (59356), ?? Echo Full (03182), ??Spectral Doppler (00793), Indication(s): ??Palpitations Rhythm: SUMMARY: 1. The left ventricle is moderately dila adebayo. ??There is normal global left ventricular systolic function. ??Ej ection fraction is estimated to be 55%. ??There are left ventricular seg mental wall motion abnormalities present, as shown in the diagram below. 2. Right ventricular chamber size, wall thickness, and systolic function are within normal limits. 3. There is no hemodynamically significa nt valve disease. 4. See remainder of report for additiona l findings. FINDINGS: Left Ventricle ?The left ventricle is moderately d ilated. ?Left ventricular wall thickness is normal. ?There is no evidence of LVOT obstr uction. ?No ventricular septal defect is vi sualized. ?There is normal global left ventri cular systolic function. ??Ejection fraction is estimated to be 55%. ?There are left ventricular segment al wall motion abnormalities present, as shown in the diagram below. ?Doppler assessment is consistent w ith normal left sided filling pressure. ?The ??basal inferior, basal infero septal, mid inferolateral and mid inferior wall segments are hypokinetic. Left Atrium ?The left atrium is mildly dilated. ?No atrial septal defect is visuali zed. Right Ventricle ?Right ventricular chamber size, wa ll thickness, and systolic function are within normal limits. Right Atrium ?The right atrium is mildly dilated . Aortic Valve ?The aortic valve is trileaflet. Th e leaflets are thin with normal excursion. There is no aortic stenosis o r regurgitation present. Mitral Valve ?The mitral valve appears normal in structure and function. ?There is no evidence of mitral carlos enrique ve leaflet prolapse. ?There is trace mitral regurgitatio n present. Tricuspid Valve ?The tricuspid valve appears normal in structure and function. ?There is trace tricuspid regurgita tion present. Pulmonic Valve ?The pulmonic valve appears normal in structure and function. Pericardium ?The pericardium appears normal and there is no evidence of a pericardial effusion. Aorta ?The aortic root is normal in size. ?The ascending aorta is normal in s ize. ?There is no evidence of coarctatio n of the aorta. Pulmonary Artery ?The main pulmonary artery appears normal. Venous ?The inferior vena cava appears nor mal in size. ?There is a greater than 50% respir atory change in the inferior vena cava dimension. Misc ?See remainder of report for additi onal findings. ?Two-dimensional echo, spectral Dop pler and color Doppler performed. Wall Motion: Segment Name ?Rest ? Base-Anteroseptal ?? Normal ? Base-Anterior ? Normal ? Base-Anterolateral ??Normal ? Base-Posterolateral Normal ? Base-Inferior ? Hypokinetic ? Base-Inferoseptal ?? Hypokinetic ? Mid-Anteroseptal ?Normal ? Mid-Anterior ?Normal ? Mid-Anterolateral ?? Normal ? Mid-Posterolateral ??Hypokinetic ? Mid-Inferior ?Hypokinetic ? Mid-Inferoseptal ?Normal ? [place]-Septal ? Normal ? [place]-Anterior ? Normal ? [place]-Lateral ?Normal ? [place]-Inferior ? Normal ? [place]-Tip ?Normal ? Chambers ?Value ?Units (Range) ? IVSd MM ? 1.1 ?cm (0.3 to 1.1) ? LVIDd MM ?6.1 ?cm (3.7 to 5.6) ? PWd MM ?1 ?cm (0.6 to 1.1) ? LVIDs MM ?3.9 ?cm (2.3 to 3.9) ? LVFS MM ? 36 ? % (28 to 42) ? LV mass ? 270.5 ?gm ? LA area ? 25 ? cm2 (<21) ? RA area ? 18.4 ? cm2 (<18) ? Ao root ? 3.2 ?cm (2.1 to 3.6) ? Asc Ao ?3.5 ?cm (2 to 3.5) ? Mitral Valve ?Value ?Units (Range) ? E peak ?0.62 ? m/sec ? E/A ratio ? 0.9 ?ratio ? MVDT ?430 ?msec ? E1 ?0.05 ? m/sec ? E/E1 ?12.4 ? ratio ? S/D ratio ? 1.6 ?ratio ? Tricuspid/Pulmonic Valves ?Value ?Units (Range) ? TR peak guerrero ? 2.8 ?m/sec ? RAP ? 3 ?mmHg ? RVSP/PASP ? 34 ? mmHg ? This report has been electronically sign ed by: _ Tyson Colin M.D. ? 02/15/2014 13:16:54 [facility] Procedure Note Tyson Colin MD - 02/15/2014Format ting of this note might be different from the original. Procedure: Transthoracic Echocardiogram Patient: BALAJI CARLISLE(Age): [birth year]) Med Rec#: [id number] Sex: M [place] [facility] [place]t / Wt: 180(cm)/109.5(k Pt. Loc: Echo Lab BSA: 2.34 Study Date: 02/15/2014 Pt. Type: Outpati ent Tape: Referring: Jackson Silver Fisher [place] Net: Jeevan Hernandez MS, [facility] Diagnosis: Palpitations (785.1) CPT Code(s): Color Doppler (96321), Echo Full (53270), Spectral Doppler (86025), Indication(s): Palpitations Rhythm: SUMMARY: 1. The left ventricle is moderately dila adebayo. There is normal global left ventricular systolic function. Ejec tion fraction is estimated to be 55%. There are left ventricular segme ntal wall motion abnormalities present, as shown in the diagram below. 2. Right ventricular chamber size, wall thickness, and systolic function are within normal limits. 3. There is no hemodynamically significa nt valve disease. 4. See remainder of report for additiona l findings. FINDINGS: Left Ventricle The left ventricle is moderately dilate d. Left ventricular wall thickness is norm al. There is no evidence of LVOT obstructio n. No ventricular septal defect is visuali zed. There is normal global left ventricular systolic function. Ejection fraction is estimated to be 55%. There are left ventricular segmental wa ll motion abnormalities present, as shown in the diagram below. Doppler assessment is consistent with n ormal left sided filling pressure. The basal inferior, basal inferoseptal, mid inferolateral and mid inferior wall segments are hypokinetic. Left Atrium The left atrium is mildly dilated. No atrial septal defect is visualized. Right Ventricle Right ventricular chamber size, wall th ickness, and systolic function are within normal limits. Right Atrium The right atrium is mildly dilated. Aortic Valve The aortic valve is trileaflet. The katerina flets are thin with normal excursion. There is no aortic stenosis o r regurgitation present. Mitral Valve The mitral valve appears normal in stru cture and function. There is no evidence of mitral valve le aflet prolapse. There is trace mitral regurgitation pre sent. Tricuspid Valve The tricuspid valve appears normal in s tructure and function. There is trace tricuspid regurgitation present. Pulmonic Valve The pulmonic valve appears normal in st ructure and function. Pericardium The pericardium appears normal and ther e is no evidence of a pericardial effusion. Aorta The aortic root is normal in size. The ascending aorta is normal in size. There is no evidence of coarctation of the aorta. Pulmonary Artery The main pulmonary artery appears jackeline l. Venous The inferior vena cava appears normal i n size. There is a greater than 50% respiratory change in the inferior vena cava dimension. Misc See remainder of report for additional findings. Two-dimensional echo, spectral Doppler and color Doppler performed. Wall Motion: Segment Name Rest Base-Anteroseptal Normal Base-Anterior Normal Base-Anterolateral Normal Base-Posterolateral Normal Base-Inferior Hypokinetic Base-Inferoseptal Hypokinetic Mid-Anteroseptal Normal Mid-Anterior Normal Mid-Anterolateral Normal Mid-Posterolateral Hypokinetic Mid-Inferior Hypokinetic Mid-Inferoseptal Normal [place]-Septal Normal [place]-Anterior Normal [place]-Lateral Normal [place]-Inferior Normal [place]-Tip Normal Chambers Value Units (Range) IVSd MM 1.1 cm (0.3 to 1.1) LVIDd MM 6.1 cm (3.7 to 5.6) PWd MM 1 cm (0.6 to 1.1) LVIDs MM 3.9 cm (2.3 to 3.9) LVFS MM 36 % (28 to 42) LV mass 270.5 gm LA area 25 cm2 (<21) RA area 18.4 cm2 (<18) Ao root 3.2 cm (2.1 to 3.6) Asc Ao 3.5 cm (2 to 3.5) Mitral Valve Value Units (Range) E peak 0.62 m/sec E/A ratio 0.9 ratio MVDT 430 msec E1 0.05 m/sec E/E1 12.4 ratio S/D ratio 1.6 ratio Tricuspid/Pulmonic Valves Value Units (Range) TR peak guerrero 2.8 m/sec RAP 3 mmHg RVSP/PASP 34 mmHg This report has been electronically sign ed by: _ Tyson Colin M.D. 02/15/2014 13:16: 54 Images reviewed and interpretation verif ied [facility] Cardiac Ultrasound Laboratory Jackson Silver MD ECHO ORDERABLES documented in this encounter Visit Diagnoses Diagnosis Palpitations - Primary Palpitations documented in this encounter Care Teams Home Appliance Technician Relationship Specialty Start Date End Date Matt Duncan MD PCP - General 04/28/13 11/30/16 [address] [place] [address] documented as of this encounter
--- OUTSIDE RECORDS SUMMARY | 2022-04-14 13:32 | XMS_ITS | Encounter Summary ---
:1940 Author Organization [facility] Address [facility] [address] [facility] [place] [address] Care Team Providers Name Role Phone Daphnie Rivera CHRISTELLE Primary Care Provider Reason for Visit Reason Comments Skin Check Encounter Details Date Type Department Care Team Description 07/04/2012 Follow-Up Dermatology at [facility] Rosario S kin lesion (Primary Dx); Kelly SAUCEDO History of melanoma; [address] [facility] Actinic keratosis; [place] [address] [place] [phone] [facility] [place], [place] [address] (Wo rk) Social History Tobacco Use Types Packs/Day Years Used Date Never Smoker Sex Assigned at Date Recorded Not on file documented as of this encounter Progress Notes Marleen Ta MD - 07/05/2012 11:29 AM EST I was the supervising physician working with dermatology resident Dr. Eugenio Snyder in the dermatology clinic during this patient visit. The level of Resident supervision for this patient visit was indirect supervision with direct supervision immediately available. (definition: [facility] [place] GME Policy Statement on Graduate Medical Education, Supervision of Graduate Medical Trainees) I was immediately available to Dr. Snyder for questions and discussion regarding this visit. I have reviewed his encounter notedetails and level of service. Eugenio Snyder MD - 07/04/2012 1:23 PM EST Images from the original note were not included. DERMATOLOGY - ESTABLISHED PATIENT FOLLOW-UP Date of service: 07/04/2012 Acosta Ramirez : 1940 Dermatology Resident Note: Eugenio Snyder MD Chief Problem: Skin check Chief Complaint Patient presents with ??? Skin Check Mr. Acosta Ramirez is a 72 y.o. male. This is an established patient, last seen by me on 02/17/2012. HPI: Mr. Ramirez presents for a full skin check. He said that he just had colon surgery and colostomy for [address] Willett, He has been in a lot of pain and is currently taking percocet. No concerning skin lesions. Skin History: Pt brought path report from re-excision of lesion, but no original biopsy: Moderately atypical junctional Melanocytic proliferation residual. No evidence of Melanoma Margins are free. 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 Medications: Current Outpatient Prescriptions on File Prior to Visit Medication Sig Dispense Refill ??? aspirin 81 mg EC tablet Take 81 mg by mouth daily. Allergies: No Known Allergies Social History: Retired , lived in [facility] part of year. Review of Systems: - General: Feels well. - Skin: As per HPI; no other skin concerns. Examination: - Constitutional: Patient was alert, well-appearing and in no noticeable distress. - Skin: A full skin examination was performed. This includes the head, neck, face and scalp including behind the ears. The chest, abdomen, back, and axillae, as well as the arms, hands, palms, fingers.Legs, feet, toes and soles were also examined. Buttocks and breasts were also examined with patient consent. Genitalia were not examined. Specific skin findings: 1. 0.2-0.3cm scaly irregular pink papule(s) scattered on face and ears, forearms 2. 5 mm pink, brown papule on right clavicle 3. Medium brown evenly pigmented papule on left upper abdomen 4. Scattered stuck on waxy brown papules. 5. Well healed FTSG on right forearm, NER. bx site of HAK from previous appt well healed w/ NER. 6. No axillary, cervical, clavicular, inguinal, submandibular LAD. Photo taken with verbal consent for clinical and academic uses. Diagnosis/Assessment/Treatment Plan: 1. actinic keratoses Discussed pathophysiology of AKs and treatment options. Patient agreed to proceed w/ LN2. Will discuss carac vs PDT in future. Procedure(s): Destruction of lesion(s) with cryotherapy. Number: 14 Location: as above Discussed procedure and expectations including risks (including risk of hypopigmentation) and benefits. Verbal consent obtained. Frozen with LN2, 15-30 second thaw time, TWICE. There were no complications; the patient tolerated the procedure well. Post-procedure expectations and wound care were reviewed. 2. R/o BCC vs. ISK vs. Lichenoid keratosis Procedure: Skin biopsy. Location: Right clavicle Discussed indications for procedure and expectations including risks and benefits. Verbal consent obtained. Skin prep with alcohol. Local anesthesia with 1% xylocaine, 1/100,000 epinephrine, 0.1 mEq/mLbicarbonate. A sample of the lesion was removed by shave technique to the level of the dermis and submitted to Pathology. Hemostasis obtained (AlCl and/or electrocautery). There were no complications; the pt. tolerated the procedure well. The wound was dressed. Post-procedure expectations, wound care and activity restrictions were reviewed. Follow-up based on pathology results. 3. Hx MM No evidence of recurrence, reassured. No LAD or concerning pigmented lesions. Patient educated on ABCDEs of MM, concerning signs of skin cancer, and proper sun protection. Photo taken of one nevus on abdomen, will monitor. Continue q3mo skin checks. Pt reported he will be in [place] until november. 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 Continue q3mo skin check x 1yr from dx then q6mo x 5 years then yearly. Follow-up: RTC in 3 months. Instructed to call for questions or concerns. Eugenio Snyder MD Resident in Dermatology [facility] staff rolling mill operator: Marleen Ta MD Section of Dermatology [facility] documented in this encounter Plan of Treatment Scheduled Orders Name Type Priority Associated Diagnoses Order S chedule Skin Biopsy Dermatology Routine Skin lesion Ordered: 2011 documented as of this encounter Procedures Procedure Name Priority Date/Time Associated Diagnosis Comme nts SURGICAL PATHOLOGY Routine 07/04/2012 4:04 PM Res ults for this REPORT EST procedure are i n the results section. SPECIMEN TO Routine 07/04/2012 1:45 PM Skin lesion Results f or this PATHOLOGY (NON-OR) EST procedure are in the results section. documented in this encounter Results Surgical Pathology Report (07/04/2012 4:04 PM EST) Component Value Ref Test Analysis Performed At [facility] Range Method Time Signature Surgical CERNER Pathology ? [facility] Report ? Provider: ?? EUGENIO SNYDER ?Pt. Name: ?? ALEXEI Aguilera, ACOSTA La ? Acc #: ?[id number] ? Pt. ? Col Date: ?? 07/04/20 12 ?/Sex: ?1940,(72 years),Male ? Rec Date: ?? 07/04/2012 ?LOC: ?[facility] ? SURGICAL PATHOLOGY ? ---Pathologic Diagnosis--- ? Skin, right clavicle, shave biopsy: ?Basal cell carcinoma. ? CR-0 ? Dictated by: ??Sakshi Preston MD ? Dermatopathology Fellow ? As the attending phys ician, I attest that I examined the histologic slides, ? and confirm Dr. Sakshi Preston's diagnosis. ? 07/05/12 ? AJE ? 07/05/12 Verified by: ? Lemuel SAUCEDO, Alisa Barboza ? Dermatopatholo gist ? (Electronic Si gnature) ? The attending pathologist whose signature appears o n this report has ? reviewed all diagnostic slides and has edited the av ss and/or ? microscopic portion of the report in rendering the fi nal pathologic ? diagnosis. ? ---Microscopic Description--- ? Slides reviewed, microscopic description not recorded . ? ---Gross Description--- ? Labeled/Fixative: ? Labeled with the patient's na me and medical ? record number, forma rakesh. ? Qty/Size/Weight: ?Single shave, 1.0 cm, with a pale stallworth-white skin ? surface with a central, raised, granular, ? encrusted, stallworth-brown lesion, 0.5 x 0.4 cm in ? greatest dimension. ? Sections/Processing: ??Inked. ??Quadrisected. ??(T1) aje/PPS ? ---Clinical Information--- ? Specimen Submitted: ? A - Skin, right clavicle, shave biopsy (1) ? Clinical History/Diagnosis: ? 5-mm pink-brown papule; R/O BCC vs ISK vs lichenoid k eratosis Specimen (Source) Anatomical Collection Method Collection Time Re ceived Time Location / / Volume Laterality 07/04/2012 4:04 PM EST Eugenio Snyder MD PATHOLOGY/CYTOLOGY ORDERABLE S Performing Organization Address City/State/ZIP [place] [address] [facility] Specimen to Pathology (NON-OR) (07/04/2012 1:45 PM EST) Specimen Anatomical Collection Method Collection Time Receive d Time (Source) Location / / Volume Laterality AP Specimen 07/04/2012 1:45 PM 2 1:45 EST PM EST Narrative CERNER MILLENNIUM - 07/04/2012 1:[address] Specimen requisition ordered. ??Separate Pathology report to follow Marleen Ta MD PATHOLOGY/CYTOLOGY ORDERABLE S Performing Organization Address City/[facility]/ZIP [place] [address] [facility] documented in this encounter Visit Diagnoses Diagnosis Skin lesion - Primary Unspecified disorder of skin and subcuta neous tissue History of melanoma Personal history of malignant melanoma o f skin Actinic keratosis Nevus Benign neoplasm of skin, site unspecifie d documented in this encounter Care Teams Apprentice Painter Neckties Relationship Specialty Start Date End Date Daphnie Rivera APRN PCP - General 07/04/12 04/27/13 documented as of this encounter
--- OUTSIDE RECORDS SUMMARY | 2022-04-14 13:32 | XMS_ITS | Encounter Summary ---
:1940 Author Organization [facility] [place] [address] Care Team Providers Name Role Phone Unknown Primary Care Provider Unavailable Encounter Details Date Type Department Care Team Description 03/18/2012 Hospital Encounter Radiology Library at Alexis Shook [facility] [place] [facility] [place] [address] CARDIOLOGY DEPT. [phone] [place], [place] [address] (Wo rk) Social History Tobacco Use Types Packs/Day Years Used Date Never Smoker Sex Assigned at Date Recorded Not on file documented as of this encounter Plan of Treatment Not on filedocumented as of this encounter Procedures Procedure Name Priority Date/Time Associated Diagnosis Comme nts FILM LIBRARY Routine 03/18/2012 12:00 AM Results for this STORAGE ONLY DX EDT procedure ar e in ABDOMEN the results section. documented in this encounter Results Film Library- Storage Only DX Abdomen (03/18/2012 12:00 AM EDT) Specimen (Source) Anatomical Location Collection Method / Collectio n Time Received Time / Laterality Volume Narrative RAD - 04/13/2018 12:32 PM EDT This exam is for storage only and is aut o-finalizing. Alexis Shook MD G FILM LIBRARY ORDERABLES Performing Organization Address City/State/ZIP Code Phon e Number [place], [place] documented in this encounter Visit Diagnoses Not on filedocumented in this encounter Care Teams Labor Trainer Relationship Specialty Start Date End Date Unknown PCP - General 02/17/12 07/03/12 None documented as of this encounter
--- OUTSIDE RECORDS SUMMARY | 2022-04-14 13:32 | XMS_ITS | Encounter Summary ---
:1940 Author Organization [facility] Address [facility] [place] [address] Care Team Providers Name Role Phone Unknown Primary Care Provider Unavailable Reason for Visit Reason Comments Skin Lesion Encounter Details Date Type Department Care Team Description 02/17/2012 Office Visit Dermatology Eugenio Snyder, Neoplasm of [facility] unspecified nature of Drive [facility] bone, soft tissue, [place] [address] skin (Primary Dx) [phone]-DERMATOLOGY [place] [address] Social History Tobacco Use Types Packs/Day Years Used Date Never Smoker Sex Assigned at Date Recorded Not on file documented as of this encounter Progress Notes Haris Meredith III, MD - 02/18/2012 9:51 AM EDT I directly supervised Dr. Snyder during this office visit. Dr. Snyder presented the history and physical exam to me. I then saw and examined this patient with Dr. Snyder. We reviewed the history and pertinent details and I confirmed the physical findings. I agree with the details of the history and physical exam as documented in Dr. Eugenio Snyder's note. Eugenio Snyder MD - 02/17/2012 11:36 AM EDT DERMATOLOGY - NEW PATIENT NOTE Date of service: 02/17/2012 Acosta Ramirez MRN: <[id number]> : 1940 Dermatology Resident Note: Eugenio Snyder MD Chief Problem: Chief Complaint Patient presents with ??? Skin Lesion Mr. Acosta Ramirez is a 71 y.o. male. This is a new patient to me. Seen in consultation at the request of Self specifically for the evaluation and management of the above problem. HPI:Patient here for evaluation of a dark raised spot on his right forearm present for 3-4 days justbelow the scar. Patient reports it looks like the area that was removed and found to be melanoma. Nosymptoms but he is worried about it. Past Skin History: Pt brought path report from re-excision of lesion, but no original biopsy: Moderately atypical junctional Melanocytic proliferation residual. No evidence of Melanoma Margins are free. 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 Medications: No current outpatient prescriptions on file prior to encounter. Allergies: No Known Allergies Family History: Non contributory Social/Occupational History: Retired , lived in [facility] part of year. Review of Systems: General: Feels well Skin: As per HPI; no other skin concerns Examination: Constitutional: Patient was alert, well-appearing and in no noticeable distress. Skin: An abbreviated skin exam was performed. This includes: focused exam of the right forearm Specific skin findings: 1. 0.9 cm crust on erythematous base, noted on right forearm proximal to large well healed skin graft Diagnosis/Assessment/Treatment Plan: 1. Traumatic lesion r/o malignancy - H/o melanoma -likely benign lesion, but unable to tell for certain, patient very worried w/ hx of melanoma. Pt agreed to proceed w/ shave biopsy. -patient will have original bx sent to us and will f/u here for full skin check in March as he had one in December in [place]. Procedure: Skin biopsy. , shave Location: Right forearm Discussed indications for procedure and expectations including [...] restrictions were reviewed. Follow-up based on pathology results RTC in Early March for full skin check . Instructed to call for questions, concerns. Note initiated by ROSALIA OVIEDO LPN Reviewed and signed by Eugenio Snyder MD Resident in Dermatology [facility] Patient seen and evaluated with staff rigger: Imani Meredith MD Section of Dermatology [facility] documented in this encounter Plan of Treatment Not on filedocumented as of this encounter Procedures Procedure Name Priority Date/Time Associated Diagnosis Comme nts SURGICAL PATHOLOGY Routine 02/17/2012 3:53 PM Res ults for this REPORT EDT procedure are i n the results section. SPECIMEN TO Routine 02/17/2012 11:37 AM Neoplasm of Results for this PATHOLOGY (NON-OR) EDT unspecified nature pro cedure are in of bone, soft the results tissue, and skin section. documented in this encounter Results SURGICAL PATHOLOGY REPORT (02/17/2012 3:53 PM EDT) Component Value Ref Test Analysis Performed At [facility] Range Method Time Signature Surgical CERNER Pathology ? [facility] Report ? Provider: ?? EUGENIO SNYDER ?Pt. Name: ?? ALEXEI Aguilera, ACOSTA La ? Acc #: ?[id number] ? Pt. ? Col Date: ?? 02/17/2012 ?/Sex: ?1940,(71 years),Male ? Rec Date: ?? 02/17/2012 ?LOC: ?4M ? SURGICAL PATHOLOGY ? ---Pathologic Diagnosis--- ? Skin, right forearm, shave biopsy: ? Hyperplastic actinic keratosis with dermal fibro sis, see comment. ? CR-0 ? Dictated by: ??Sakshi Preston MD ? Dermatopathology Fellow ? As the attending phys ician, I attest that I examined the histologic slides, ? and confirm Dr. Sakshi Preston's diagnosis. ? 02/18/12 ? AJE ? 02/18/12 Verified by: ? Abhilash SAUCEDO, Orlando Vega ? Dermatopatholo gist ? (Electronic Si gnature) ? The attending pathologist whose signature appears o n this report has ? reviewed all diagnostic slides and has edited the av ss and/or ? microscopic portion of the report in rendering the fi nal pathologic ? diagnosis. ? ---Comment--- ? The dermal changes may represent prior treatment effe ct. ? ---Microscopic Description--- ? Slides reviewed, microscopic description not recorded . ? ---Gross Description--- ? Labeled/Fixative: ? Labeled with the patient's na me, formalin. ? Qty/Size/Weight: ?Single shave, 1.4 x 1.0 x 0. 1 cm. ? Tissue Description: ?? Crusted skin shave. ? Sections/Processing: ??The specimen is quadrisected. ??(T1) aje/SNS ? ---Clinical Information--- ? Specimen Submitted: ? A - Skin, right forearm, shave biopsy (1) ? Clinical History/Diagnosis: ? 0.9-cm crust on erythematous base noted on righ t forearm / trauma R/O ? malignancy. ??HX of melanoma. Specimen (Source) Anatomical Collection Method Collection Time Re ceived Time Location / / Volume Laterality 02/17/2012 3:53 PM EDT Eugenio Snyder MD PATHOLOGY/CYTOLOGY ORDERABLE S Performing Organization Address City/[facility]/[place] [address] CERNER MILLENNIUM Specimen to Pathology (NON-OR) (02/17/2012 11:37 AM EDT) Specimen Anatomical Collection Method Collection Time Receive d Time (Source) Location / / Volume Laterality AP Specimen 02/17/2012 11:37 02/17/2012 AM EDT 12:39 PM EDT Narrative CERNER MILLENNIUM - 02/17/2012 12:39 PM EDT Specimen requisition ordered. ??Separate Pathology report to follow Haris Meredith III, MD PATHOLOGY/CYTOLOGY ORDERABLE S Performing Organization Address City/[facility]/[place] [address] CERNER MILLENNIUM documented in this encounter Visit Diagnoses Diagnosis Neoplasm of unspecified nature of bone, soft tissue, and skin - Primary documented in this encounter Care Teams Lastex Operator Relationship Specialty Start Date End Date Unknown PCP - General 02/17/12 07/03/12 None documented as of this encounter
--- OUTSIDE RECORDS SUMMARY | 2022-04-14 13:32 | XMS_ITS | Encounter Summary ---
:1940 [place] [address] Care Team Providers Name Role Phone Matt Duncan MD Primary Care Provider Reason for Visit Reason Onset Date Comments Medication Refill 03/21/2015 Encounter Details Date Type Department Care Team Description 03/21/2015 Refill Cardiology at [facility] Alexis Shook MD Medication Refill [facility] [place] [address] CARDIOLOGY DEPT. [phone] [place], [place] [address] (Wo rk) Social History Tobacco [...] Cardiomegaly documented in this encounter Care Teams Sales Administrator Relationship Specialty Start Date End Date Matt Duncan MD PCP - General 04/28/13 11/30/16 [address] [place] [address] documented as of this encounter
--- OUTSIDE RECORDS SUMMARY | 2022-04-14 13:32 | XMS_ITS | Encounter Summary ---
:1940 Author Organization [facility] Address [facility] [place] [address] Care Team Providers Name Role Phone Matt Duncan MD Primary Care Provider Reason for Visit Reason Comments Skin Check Encounter Details Date Type Department Care Team Description 04/14/2016 Office Visit Dermatology at [facility] oplasm of uncertain behavior of skin; Kelly TMD [place] (actinic keratosis); [address] [facility] [place] of [place] [address] [facility]-DER[facility]GY [place], [place] [address] Social History Tobacco Use Types Packs/Day Years Used Date Never Smoker Smokeless Tobacco: Never Used Alcohol Use Standard Drinks/Week Comments No 0 (1 standard drink = 0.6 oz pure alcoho l) Sex Assigned at Date Recorded Not on file documented as of this encounter Patient Instructions Patient InstructionsElena Everett LPN - 04/14/2016 10:00 AM EDT Treatment and Wound Care Instructions [...] or concerns, please call the office at [phone]. If it is after 5PM, or a holiday or weekend, please call [phone] and ask for the Bilingual Medical Assistant on-call. documented in this encounter Progress Notes Sakshi Meek MD - 04/16/2016 3:32 PM EDT Biopsy shows BCC, recommend Mohs Sakshi Meek MD - 04/14/2016 10:00 AM EDT Images from the original note were not included. DERMATOLOGY ESTABLISHED PATIENT CLINIC NOTE Date of service: 04/14/2016 Reinier Ramirez : 1940 Provider: Sakshi Meek [...] 12/12/15 ) HPI Reinier Ramirez is a 75 y.o. year old male, established patient last seen by me on 12/12/2015. Here today for a 3 month full skin examination. He denies any significant changes in his health since his last visit. He denies any new skin concerns today. MEDS: Current Outpatient Prescriptions Medication Sig Dispense [...] were not examined. Significant skin findings: A. Left Preauricular: 0.6 cm eroted pink papule B. 0.2-0.3cm scaly irregular pink papules scattered on the face and bilateral forearms x 16 C. Melanoma scar palpated. No induration or repigmentation at this site. No cervical, axillary lymphadenopathy. Verbal consent for this photo was obtained from this patient: Photos taken by ELENA EVERETT LPN ASSESSMENT/PLAN: A. Basal Cell Carcinoma vs Squamous Cell Carcinoma Procedure: Skin biopsy by shave technique Location: Left Preauricular Discussed indications for procedure and expectations including [...] Follow-up based on pathology results. B. Actinic Keratosis Procedure Note: Procedure: Destruction of lesion(s) with cryotherapy. Number: 16 Location: as above Discussed procedure and expectations including risks (including risk of hypopigmentation) and benefits. Verbal consent obtained. Frozen with LN2, 15-30 second thaw time, TWICE. There were no complications; the patient tolerated the procedure well. Post-procedure expectations and wound care were reviewed. -Patient declined an after visit summary regarding liquid nitrogen treatment today. C. History of melanoma. No evidence of recurrence. Follow up: December 2016 for a full skin examination, sooner if needed. Patent sees a Bilingual Medical Assistant in [place], who he will follow up with in 3 months. Instructed to call with questions or concerns. I am documenting this encounter acting as the scribe for and in the presence of Dr. Meek: ELENA EVERETT LPN I performed the above scribed service and agree with the accuracy of the documentation in this encounter. Sakshi Meek MD Practice Advisor of Dermatology, Department of Spa ManagerPractice Advisorfoxing painter (Dermatopathology) [facility] documented in this encounter Plan of Treatment Not on filedocumented as of this encounter Procedures Procedure Name Priority Date/Time Associated Diagnosis Comme nts SPECIMEN TO Routine 04/14/2016 10:51 AM Neoplasm of Results for this PATHOLOGY (NON-OR) EDT uncertain behavior pro cedure are in of skin the results section. SURGICAL PATHOLOGY Routine 04/14/2016 10:51 AM Re sults for this REPORT EDT procedure are i n the results section. documented in this encounter Results Surgical Pathology Report (04/14/2016 10:51 AM EDT) Component Value Ref Test Analysis Performed At Patholo gist Range Method Time Signature Surgical [id number] ?Location: [facility] Report The signing pathologist has (i) examined the relevant preparation(s) for the [facility] specimen(s) and (ii) rendered or confirmed the diagnosis(es) . HOSPITAL LABORATORY . ?Surgic al Pathology DIAGNOSIS Skin, left preauricular, shave biopsy: - BASAL CELL CARCINOMA, NODULAR TYPE, transected Electronically signed by: ??Felipe Gordillo MD Verified: ??04/15/2016 ?Dermatopathologist, Bone & Soft Tissue Pathologist CLINICAL INFORMATION Specimen Submitted: A - Skin, left preauricular, shave bx (1) Clinical History: 0.6 cm eroded pink papule Clinical Diagnosis: Basal cell carcinoma versus squamous cell carcinoma SPECIMEN PROCESSING A - Labeled/Fixative: Left preauricular, formalin. Quantity/Size: Single, 0.8 x 0.5 x 0.1 cm. Tissue Description: Shave of centrally ulcerated, pink-stallworth s kin. Sections/Processing: Inked and trisected. (T1) ??ejr Specimen (Source) Anatomical Collection Method Collection Time Re ceived Time Location / / Volume Laterality 04/14/2016 10:51 AM EDT Sakshi Meek MD PATHOLOGY/CYTOLOGY ORDERABLE S Performing Organization Address City/State/[place] [address] Specimen to Pathology (NON-OR) (04/14/2016 10:51 AM EDT) Specimen Anatomical Collection Method Collection Time Receive d Time (Source) Location / / Volume Laterality AP Specimen 04/14/2016 10:51 04/14/2016 AM EDT 12:39 PM EDT Narrative [facility] - 04/14/2016 12:39 PM EDT Specimen requisition ordered. ??Separate Pathology report to follow Resulting Agency Comment Spec In Lab Sakshi Meek MD PATHOLOGY/CYTOLOGY ORDERABLE S Performing Organization Address City/State/ZIP Code Phon e Number [place] [phone] documented in this encounter Visit Diagnoses Diagnosis Neoplasm of uncertain behavior of skin [place] (actinic keratosis) Actinic keratosis History of melanoma Personal history of malignant melanoma o f skin documented in this encounter Care Teams Hazard Mitigation Officer Relationship Specialty Start Date End Date Matt Duncan MD PCP - General 04/28/13 11/30/16 [address] [place] [address] documented as of this encounter
--- OUTSIDE RECORDS SUMMARY | 2022-04-14 13:32 | XMS_ITS | Encounter Summary ---
:1940 Author Organization [facility] [place] [address] Care Team Providers Name Role Phone Unknown Primary Care Provider Unavailable Encounter Details Date Type Department Care Team Description 03/19/2012 Hospital Encounter Radiology Library at Alexis Shook [facility] [place] [address] CARDIOLOGY DEPT. [phone] [place], [place] [address] (Wo rk) Social History Tobacco Use Types Packs/Day Years Used Date Never Smoker Sex Assigned at Date Recorded Not on file documented as of this encounter Plan of Treatment Not on filedocumented as of this encounter Procedures Procedure Name Priority Date/Time Associated Diagnosis Comme nts FILM LIBRARY Routine 03/19/2012 12:00 AM Results for this STORAGE ONLY DX EDT procedure ar e in CHEST the results section. documented in this encounter Results Film Library- Storage Only DX Chest (03/19/2012 12:00 AM EDT) Specimen (Source) Anatomical Location Collection Method / Collectio n Time Received Time / Laterality Volume Narrative RAD - 04/13/2018 12:34 PM EDT This exam is for storage only and is aut o-finalizing. Alexis Shook MD G FILM LIBRARY ORDERABLES Performing Organization Address City/State/ZIP Code Phon e Number RAD [place], [place] documented in this encounter Visit Diagnoses Not on filedocumented in this encounter Care Teams Booking Clerk Relationship Specialty Start Date End Date Unknown PCP - General 02/17/12 07/03/12 None documented as of this encounter
--- OUTSIDE RECORDS SUMMARY | 2022-04-14 13:32 | XMS_ITS | Encounter Summary ---
:1940 Author Organization [facility] Address [facility] [place] [address] Care Team Providers Name Role Phone Matt Duncan MD Primary Care Provider Reason for Referral Consultation (Routine) - Closed by system - Referral Specialty Diagnoses / Procedures Referred By Contact Refer red To Contact Sleep Center Diagnoses Atrial fibrillation Solis Estrella MD [facility] Sleep Medicine [facility] [address] [place] [address] [place] [address] Referral ID Status Reason Start Expiration Visits Visits Date Date Requested Authorized [id number] Closed by Consult 02/15/2014 08/14/2014 1 1 system - Only Referral Encounter Details Date Type Department Care Team Description 02/15/2014 Office Visit Cardiology at [facility] Jackson Silver MD [facility] [place] [address] SVT (supraventricular tachycardia) (Prim shirley Dx); [facility] Solis Estrella MD [facility] [place] [address] Heart palpitations; Drive Elevated cholesterol; [place], [place] Atrial fibrilla tion; [id number] Left ventricular hypertrophy ; [phone] Persistent atri al fibrillation Social History Tobacco Use Types Packs/Day Years Used Date Never Smoker Smokeless Tobacco: Never Used Alcohol Use Standard Drinks/Week Comments No 0 (1 standard drink = 0.6 oz pure alcoho l) Sex Assigned at Date Recorded Not on file documented as of this encounter Last Filed Vital Signs Vital Sign Reading Time Taken Comments Blood Pressure 146/82 02/15/2014 12:53 left arm, large cuff PM EDT Pulse 52 02/15/2014 12:53 regular PM EDT Temperature - - Respiratory Rate - - Oxygen Saturation 96% 02/15/2014 12:53 RA PM EDT Inhaled Oxygen - - Concentration Weight 108.6 kg (239 lb 8 02/15/2014 12:53 oz) PM EDT Height 180.3 cm (5' 11) 02/15/2014 12:53 PM EDT Body Mass Index 33.4 02/15/2014 12:53 PM EDT documented in this encounter Progress Notes Jackson Silver MD - 02/19/2014 11:16 AM EDT STAFF ADDENDUM: I have reviewed the available records, interviewed and examined the patient. I have discussed the patient's medical history, differential diagnosis, and plan of therapy with Dr Estrella and have reviewed their note dated 02/15/2014 and I agree with their note and plan of therapy. Solis Estrella - 02/17/2014 6:26 PM EDT Cardiology Outpatient Consultation Referring: Self No address on file PCP: MATT DUNCAN MD History of Present Illness: This 73 year old male with past medical history of paroxysmal atrial fibrillation, hypertension, left ventricular dilation (without dysfunction or concentric LVH). presents for evaluation and treatmentof his previously diagnosed atrial fibrillation. 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 He is accompanied by his significant other. The patient and the significant other made this appointment to establish cardiovascular care in the area, since the patient splits him time between [place] and [place]. The patient describes being diagnosed with an irregular heart beat by a pull over machine operator in Spring 2013. He was diagnosed with atrial fibrillation and referred to a quality control analyst (Dr. Villarreal). He had evaluation including transthoracic echo, Holter monitor and exercise nuclear stress test. The echo showed moderate LVH, mild LV dilation (LVEDD 5.7cm), normal LVEF 55%, and no significant structural heart disease (but mild MR, evidence of elevated filling presures, moderate LA enlargement). The Holter interpretation is not available to me, but the tracings reveal paroxysmal rapid atrial fibrillation. The stress test was a bike nuclear stress test (hit 89% of MPHR) with normal nuclear perfusion imaging, noischemia or LV dysfunction. The patient was placed on rivaroxaban, atenolol and losartan. Both before and after evaluation, the patient was asymptomatic from a cardiovascular perspective, with no palpitations, racing HR, angina, LH/syncope, orthopnea, or PND. He denies lower extremity edema. He is mostly limited by his knee problems, but can walk 1 flight of stairs slowly without chest pain or dyspnea. He was recently placed on penicillin for a tooth infection. He is scheduled for upcoming tooth infection. Review of Symptoms: Gen: no chills, no weight changes, no night sweats. (+) Per his girlfriend, he has snoring and apneaepisodes ENT: no oral bleeding, no epistaxis CV: no chest pain, no angina, no LH/syncope, no orthopnea, no PND Pulm: no SOB, no cough, no wheezing Abd: no diarrhea, no hematochezia/melena Ext: no swelling, no pain Neuro: no headaches, no weakness, no numbness, no tingling Skin: no rashes Psych: no confusion, no depression, no anxiety Heme: no easy bleeding, no new lumps : no hematuria, no dysuria Endocrine: no polydipsia/polyuria, no heat/cold intolerance Past Medical History: -Atrial fibrillation, paroxysmal, asymptomatic, elevated stroke risk on rivaroxaban -LV dilation/eccentric hypertrophy -Hypertension -Diverticulosis/Diverticulitis several years ago, with need for temporary colostomy several years ago -Knee disorder with need for bilateral quadriceps tendon surgery decades ago, and significant knee pain with limited mobility Medications: Outpatient Prescriptions Marked as Taking for the 02/15/14 encounter (Office Visit) with Jackson Silver MD Medication Sig Dispense Refill ??? atenolol (TENORMIN) 25 mg tablet Take 25 mg by mouth daily. Indications: atrial fibrillation ??? losartan (COZAAR) 50 mg tablet Take 50 mg by mouth daily. ??? penicillin v potassium (VEETID) 500 mg tablet Take 500 mg by mouth 3 times daily. ??? rivaroxaban (XARELTO) 20 mg Tab Take 1 tablet by mouth daily. ??? [DISCONTINUED] ATENOLOL ORAL Take 25 mg by mouth daily. Allergies: Allergies as of 02/15/2014 ??? (No Known Allergies) Social History: History Social History ??? Marital Status: Single Spouse Name: N/A Number of Children: N/A ??? 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 Not on file. Social History Main Topics ??? Smoking status: Never Smoker ??? Smokeless tobacco: Never Used ??? Alcohol Use: Not on file ??? Drug Use: Not on file ??? Sexually Active: Not on file Other Topics Concern ??? Not on file Social History Narrative ??? No narrative on file Family History: Medical history of mother and father is unknown. The patient's siblings did not have significant cardiovascular Physical Exam: BP 146/82 Pulse 52 Ht 180.3 cm (5' 11) Wt 108.636 kg (239 lb 8 oz) BMI 33.42 kg/m2 SpO2 96% General: In no acute distress, nondiaphoretic, nontachypneic, able to lie flat without dyspnea Head: normocephalic, atraumatic ENT: clear oropharynx, moist mucous membranes, midline trachea, supple neck, no carotid bruits CV: JVP ~7 cm, S1S2 regularly regular, no murmurs/rubs/gallops, no RV heave Lungs: Clear to auscultation bilaterally, no wheezes/rales/rhonchi, Abdomen: soft, NT/ND Ext: 1+ pitting edema with varicose veins. no clubbing, cyanosis. Femoral pulses 2+, no bruits/thrills, pedal pulses 2+. Back: no spinal TTP Diagnostics: Recent Results (from the past 72 hour(s)) ECHOCARDIOGRAM TRANSTHORACIC(LEB) Component Value Range EF 55 BASIC METABOLIC PANEL (NON-FASTING) Component Value Range Glucose Lvl 113 60 - 199 mg/dL BUN 20 10 - 20 mg/dL Creatinine 1.34 0.80 - 1.50 mg/dL Sodium 138 135 - 145 mmol/L Potassium 4.0 3.5 - 5.0 mmol/L Chloride 106 98 - 107 mmol/L CO2 24 22 - 31 mmol/L Anion Gap 8 5 - 15 mmol/L Calcium 9.1 8.5 - 10.5 mg/dL Estimated GFR 52 (*) >=60 PROTHROMBIN TIME Component Value Range PT 19.1 (*) 12.5 - 15.5 sec INR 1.5 (*) 0.9 - 1.1 HEMOGRAM Component Value Range WBC 5.6 4.0 - 10.0 x10(3)/mcL RBC 4.08 (*) 4.63 - 6.08 x10(6)/mcL Hemoglobin 13.2 (*) 13.7 - 17.5 gm/dL Hematocrit 38.8 (*) 40.0 - 51.0 % MCV 95.1 (*) 79.0 - 92.0 fL MCH 32.4 (*) 25.6 - 32.2 pg MCHC 34.0 32.0 - 36.5 gm/dL Platelets 197 145 - 370 x10(3)/mcL RDWSD 46.8 (*) 35.0 - 46.0 fL RDWCV 13.5 10.9 - 14.4 % MPV 10.2 9.0 - 12.0 fL LIPID PANEL (FASTING) Component Value Range Chol, Total 190 <=199 mg/dL Triglycerides 123 <=149 mg/dL HDL 37 (*) >=40 mg/dL LDL Cholesterol 128 (*) <=99 mg/dL Chol/HDL Ratio 5.1 EKG 12-LEAD Component Value Range Ventricular rate 54 Atrial Rate 54 P-R Interval 180 QRS Duration 90 Q-T Interval 422 QTC Calculated (Bezet) 400 Calculated P Pollok 32 Calculated R Pollok -26 Calculated T Pollok -4 INTERPRETATION Value: Sinus bradycardia Nonspecific ST and T wave abnormality Abnormal ECG No previous ECGs available Confirmed by MD JENNIFER, AMY ([id number]) on 02/15/2014 10:15:26 PM Echo today: images reviewed by me. The described inferior/posterior wall motion abnormalities are somewhat subtle. LV dilation is noted. RAP estimated normal 1. The left ventricle is moderately dilated. There is normal global left ventricular systolic function. Ejection fraction is estimated to be 55%. There are left ventricular segmental wall motion abnormalities present, as shown in the diagram below. 2. Right ventricular chamber size, wall thickness, and systolic function are within normal limits. 3. There is no hemodynamically significant valve disease. 4. See remainder of report for additional findings. EKG: tracing reviewed Plan: Reinier Ramirez is a 73 y.o. male with the following past medical history recently diagnosed paroxysmal atrial fibrillation on rivaroxaban, obesity, hypertension, left ventricular dilation (without dysfunction or concentric LVH), and other PMHx of diverticulosis, and limited mobility from prior knee surgery. He presents for evaluation of his cardiovascular issues. His atrial fibrillation is asymptomatic and rate controlled. He has elevated stroke risk ([id number] score of 2), and is on rivaroxaban without issues. He is currently in sinus rhythm. His treatment thus far has been highly appropriate. The patient asks what to do regarding his upcoming tooth extract ion. If the dentist feels uncomfortable operating on rivaroxaban, the medication can be held 3 days prior to procedure, and 1 day post procedure. He has evidence of worsening left ventricular dilation without LV dysfunction (then mild, now moderate). No overt CHF on exam or elevated LAP on echo, lower extremity is from varicose veins. I suspect the LV dilation is multifactorial, given he has symptoms of undiagnosed sleep apnea (snoring/apnea spells), obesity, and uncontrolled hypertension. He has no alcohol use. He is on appropriate cardioprotective medications with a beta-елена and an ARB, per his [place] quality control analyst. If it worsens to LV dysfunction, his beta-елена could reasonably be switched to a CHF-specific one (carvedilol or metoprolol succinate). Given his MICK symptoms and uncontrolled hypertension, I have referred him to the sleep center for evaluation and possible treatment. The patient is agreeable to this. I have also counseled the patient on weight loss. There is a small area of inferior/posterior wall motion abnormality noted on his echo. He has no symptoms of recent TN, angina or myocarditis/viral syndrome. Recent echo and nuclear perfusion scan in October 2013 were negative. Our echo may be a false positive, but direct comparison of images is not available. On the small chance that our echo is a true positive (for small inferior/posterior TN, most likely), I have started the patient on high dose statin (atorvastatin 40mg a day), and aspirin (81mg aday). His LDL is also high to begin with, 190mg/dL. The patient is agreeable to this. He will get repeat cholesterol in 3 months, at a local lab. I contacted the patient's [place] quality control analyst office for further records of his care. I will see the patient again in 3 months. I saw the patient with the attending, Dr. Silver. This plan was formulated in conjunction with him. Copies of this note will be sent to the patient's PCP, dentist, and [place] quality control analyst. Solis Estrella MD [employer] Pager [phone] Daytime documented in this encounter Plan of Treatment Scheduled Referrals Name Type Priority Associated Diagnoses Order S chedule Referral to Sleep Outpatient Referral Routine Atrial fibrillat ion Ordered: [facility] Center 02/15/2014 documented as of this encounter Procedures Procedure Name Priority Date/Time Associated Comments Diagnosis EKG 12-LEAD Routine 02/15/2014 1:38 PM Heart palpita tions Results for this EDT SVT procedure are i n (supraventricular the result s tachycardia) section. HEMOGRAM STAT 02/15/2014 1:29 PM Heart palpita tions Results for this EDT SVT procedure are i n (supraventricular the result s tachycardia) section. PROTHROMBIN TIME STAT 02/15/2014 1:29 PM Heart palpit ations Results for this EDT SVT procedure are i n (supraventricular the result s tachycardia) section. LIPID PANEL (REFLEX Routine 02/15/2014 1:29 PM Re sults for this DIRECT LDL) EDT procedure are i n the results section. BASIC METABOLIC PANEL Routine 02/15/2014 1:29 PM Heart p alpitations Results for this (NON-FASTING) EDT SVT procedure are in (supraventricular the result s tachycardia) section. documented in this encounter Results EKG 12 Lead (02/15/2014 1:38 PM EDT) Component Value Ref Range Test Analysis Performed Pathologis t Method Time At Signature Ventricular rate 54 BPM MUSE SYSTEM Atrial Rate 54 BPM MUSE SYSTEM P-R Interval 180 ms MUSE SYSTEM QRS Duration 90 ms MUSE SYSTEM Q-T Interval 422 ms MUSE SYSTEM QTC Calculated 400 ms MUSE SYSTEM (Bezet) Calculated P Pollok 32 degrees MUSE SYSTEM Calculated R Pollok -26 degrees MUSE SYSTEM Calculated T Pollok -4 degrees MUSE SYSTEM INTERPRETATION Sinus bradycardia MUSE SY STEM Nonspecific ST and T wave abnormality Abnormal ECG No previous ECGs available Confirmed by MD JENNIFER, AMY ([id number]) on 02/15/2014 10:15:26 PM Specimen Anatomical Collection Method Collection Time Receive d Time (Source) Location / / Volume Laterality 02/15/2014 1:38 PM 4 EDT 10:15 PM EDT Jackson Silver MD ECG ORDERABLES Performing Organization Address City/State/ZIP Code Phon e Number MUSE SYSTEM (ABNORMAL) Lipid panel (fasting) (02/15/2014 1:29 PM EDT) P athologist Signature Chol, Total 190 <=199 mg/dL CERNER MILLENNIUM Comment: Recommendations of the NCEP Adult Treatm ent Panel for the following risk cutoff thresholds for the [place] popul[place] n: Desirable: <200 mg/dL Borderline High: 200-239 mg/dL High: > or = 240 mg/dL Triglycerides 123 <=149 mg/dL CERNER MILLENN IUM Comment: Reference Range: Normal triglycerides: ??<150 mg/dL Borderline high: ??150-199 mg/dL High: ??200-499 mg/dL Very high: ??>vb=399 mg/dL DANIEL 2001; [phone] HDL 37 (L) >=40 mg/dL CERNER MILLENNIUM Comment: Reference range: ??Low HDL: ?? < 40 mg/dL ??Normal: ?40-60 mg/dL ??Desirable: > 60 mg/dL DANIEL 2001; [phone] LDL Cholesterol 128 (H) <=99 mg/dL CERNER UNIQUE NIUM Comment: Reference range: ?? Optimal: ?<100 mg/dL ?? Near Optimal/Above Optimal: ?? 100-1 29 mg/dL ?? Borderline high: ?130-159 mg/dL ?? High: ? 160-189 mg/dL ?? Very high: ?>jj=560 mg/dL DANIEL 2001: [phone]):[phone] Chol/HDL Ratio 5.1 ratio JANNETTE MADRIGAL UM Comment: A Cholesterol to HDL ratio below 4:1 is desirable. ??Studies suggest that increased CAD risk occurs at ratios abov e 5 for females and above 6 for men. ? [place] [employer] Association ??(htt p://www.americanheart.org) ? Alisa Int Med, 1994; 121:641 ? AM J Med, 1998; 105(1A):48S Specimen Anatomical Collection Method Collection Time Receive d Time (Source) Location / / Volume Laterality Blood specimen 02/15/2014 1:29 PM 014 1:44 (specimen) EDT PM EDT Resulting Agency Comment Spec In Lab Jackson Silver MD CHEMISTRY ORDERABLES Performing Organization Address City/State/[place] [address] JANNETTE BACHENNIUM (ABNORMAL) Hemogram (02/15/2014 1:29 PM EDT) P athologist Signature WBC 5.6 4.0 - 10.0 CERNER x10(3)/mcL MILLENNIUM RBC 4.08 (L) 4.63 - CERNER 6.08 MILLENNIUM x10(6)/mcL Hemoglobin 13.2 (L) 13.7 - CERNER 17.5 gm/dL MILLENNIUM Hematocrit 38.8 (L) 40.0 - CERNER 51.0 % MILLENNIUM MCV 95.1 (H) 79.0 - CERNER 92.0 fL MILLENNIUM MCH 32.4 (H) 25.6 - CERNER 32.2 pg MILLENNIUM MCHC 34.0 32.0 - CERNER 36.5 gm/dL MILLENNIUM Platelets 197 145 - 370 CERNER x10(3)/mcL MILLENNIUM RDWSD 46.8 (H) 35.0 - CERNER 46.0 fL MILLENNIUM RDWCV 13.5 10.9 - CERNER 14.4 % MILLENNIUM MPV 10.2 9.0 - 12.0 [facility] f[facility] MILLENNIUM Specimen Anatomical Collection Method Collection Time Receive d Time (Source) Location / / Volume Laterality Blood specimen 02/15/2014 1:29 PM 014 1:33 (specimen) EDT PM EDT Resulting Agency Comment Spec In Lab Jackson Silver MD HEMATOLOGY ORDERABLES Performing Organization Address [facility]/ZIP [facility] Phon e Number [address] CERNER MILLENNIUM (ABNORMAL) Prothrombin Time (02/15/2014 1:29 PM EDT) athologist Signature PT 19.1 (H) 12.5 - 15.5 CERNER sec MILLENNIUM Comment: [facility] Transfusion Committee Guidelines: I NR less than 2.0, PTT less than OR equal to 43.5 seconds, or Fibrinogen gre ater than or equal to 100 mg/dl indicate adequate procoagulant activity for hemostasis in patients without underlying bleeding disorders. INR 1.5 (H) 0.9 - 1.1 [facility] Specimen Anatomical Collection Method Collection Time Receive d Time (Source) Location / / Volume Laterality Blood specimen 02/15/2014 1:29 PM 014 1:33 (specimen) EDT PM EDT Resulting Agency Comment Spec In Lab Jackson Silver MD HEMATOLOGY ORDERABLES Performing Organization Address City/[facility] Phon e Number [address] [facility] MILLENNIUM (ABNORMAL) Basic Metabolic Panel (non-fasting) (02/15/2014 1:29 PM EDT) athologist Signature Glucose Lvl 113 60 - 199 CERNER mg/dL [facility] Comment: Diabetes: >=200 mg/dL plus symp toms BUN 20 10 - 20 mg/dL CERNER MILLENNIU M Creatinine 1.34 0.80 - 1.50 mg/dL CERNER MILL ENNIUM Comment: Please note that the pediatric reference intervals supplied above were not validated at [facility]. Results from pediatri c patients should be interpreted in conjunction to the patient's age, height and muscle mass. Sodium 138 135 - 145 mmol/L CERNER UNIQUE NIUM Potassium 4.0 3.5 - 5.0 mmol/L CERNER UNIQUE NIUM Comment: Please note: ??Patients with WBC >100,00 0 may have falsely elevated Potassium levels. ??For accurate Potassium quantif ication in these patients send serum separator tube (gold top) for subsequent determinations. ??Contact the Clinical Chemistry Laboratory if there are any qu estions. Chloride 106 98 - 107 mmol/L CERNER MILLENN IUM CO2 24 22 - 31 mmol/L CERNER MILLENNI UM Anion Gap 8 5 - 15 mmol/L CERNER MILLENNIU M Calcium 9.1 8.5 - 10.5 mg/dL CERNER UNIQUE NIUM Estimated GFR 52 (L) >=60 CERNER MILLENNIU M Comment: This estimated GFR (eGFR) value was [...] the following links into your internet browser. [email or web address] [email or web address] Specimen Anatomical Collection Method Collection Time Receive d Time (Source) Location / / Volume Laterality Blood specimen 02/15/2014 1:29 PM 014 1:33 (specimen) EDT PM EDT Resulting Agency Comment Spec In Lab Jackson Silver MD CHEMISTRY ORDERABLES Performing Organization Address City/State/[place] [address] JANNETTE ARGUELLOIUM documented in this encounter Visit Diagnoses Diagnosis SVT (supraventricular tachycardia) - Tierney llanes Other specified cardiac dysrhythmias Heart palpitations Palpitations Elevated cholesterol Pure hypercholesterolemia Atrial fibrillation Left ventricular hypertrophy Cardiomegaly Persistent atrial fibrillation Atrial fibrillation documented in this encounter Care Teams Neon Tube Pumper Relationship Specialty Start Date End Date Matt Duncan MD PCP - General 04/28/13 11/30/16 ATUL [address] [place] [address] documented as of this encounter
--- OUTSIDE RECORDS SUMMARY | 2022-04-14 13:32 | XMS_ITS | Encounter Summary ---
:1940 Author Organization [facility] [place] [address] Care Team Providers Name Role Phone Matt Duncan MD Primary Care Provider Encounter Details Date Type Department Care Team Description 12/03/2015 Office Visit Cardiology at [facility] Alexis Shook, Chronic atrial fibrillation; [facility] Essential hypertension, hypertension wit h unspecified goal; Drive [facility] [place] [address] CARDI[address]Y DEPT. [phone] [place], [place] [address] Social History Tobacco Use Types Packs/Day Years Used Date Never Smoker Smokeless Tobacco: Never Used Alcohol Use Standard Drinks/Week Comments No 0 (1 standard drink = 0.6 oz pure alcoho l) Sex Assigned at Date Recorded Not on file documented as of this encounter Last Filed Vital Signs Vital Sign Reading Time Taken Comments Blood Pressure 130/78 12/03/2015 10:38 AM EDT Pulse 64 12/03/2015 10:38 AM EDT Temperature - - Respiratory Rate - - Oxygen Saturation 97% 12/03/2015 10:38 AM EDT Inhaled Oxygen Concentration - - Weight 111.4 kg (245 lb 8 oz) 12/03/2015 10:38 AM EDT Height 180.3 cm (5' 11) 12/03/2015 10:38 AM EDT Body Mass Index 34.24 12/03/2015 10:38 AM EDT documented in this encounter Progress Notes Alexis Shook MD - 12/03/2015 11:24 AM EDT Images from the original note were not included. Formerly [facility] [place] [address] CARDIOLOGY OUTPATIENT FOLLOW-UP NOTE Reinier Ramirez [id number] PCP: MATT DUNCAN MD 12/03/2015 PRIMARY CARE PROVIDER: MATT DUNCAN MD PROBLEM LIST: Patient Active Problem List Diagnosis ??? MICK (obstructive sleep apnea) ??? Morbid obesity ??? Bilateral leg weakness ??? Chronic atrial fibrillation ?? Diagnosed 11/2013, without symptoms during visit with vascular neurologist, ?? Asymptomatic ?? [id number] score = 2 (age and HTN) ??? [...] facility-administered medications for this visit. SUBJECTIVE: This 75-year-old man comes for a brief follow-up appointment regarding chronic atrial fibrillation. He had a recently good winter although did undergo some cataract surgery. He remains stable from the perspective of his heart. He has no awareness of his heart rhythm. He is on Xarelto and having no bleeding problems. He has no awareness of his heart rhythm. OBJECTIVE: Vital Signs: Visit Vitals ??? BP 130/78 (BP Location (NBP): Left arm, Patient Position: Sitting) ??? Pulse 64 ??? Ht 180.3 cm (5' 11) ??? Wt (!) 111.4 kg (245 lb 8 oz) ??? SpO2 97% ??? BMI 34.24 kg/m2 Physical Exam: On examination he appeared in no acute distress. His neck veins were flat. His lungs were clear. His heart exam revealed an irregularly irregular rhythm at a controlled rate. He had no murmurs, rubs, or gallops. His extremities were notable for trace of edema bilaterally. Twelve-lead EKG: This revealed atrial fibrillation with an occasional premature ventricular or aberrantly conducted beat. It was otherwise unremarkable. DIAGNOSES: 1. Chronic atrial fibrillation IMPRESSIONS: Overall he seems stable. He has no awareness of his heart rhythm and is tolerating anticoagulation for thromboembolism protection. PLAN: 1. Continue current medications 2. Cardiology follow-up in one year documented in this encounter Miscellaneous Notes Addendum Note - Teresa Rosario RN - 12/30/2015 2:45 PM EDT Addended by: TERESA ROSARIO on: 12/30/2015 02:45 PM Modules accepted: Orders documented in this encounter Plan of Treatment Not on filedocumented as of this encounter Procedures Procedure Name Priority Date/Time Associated Diagnosis Comme nts EKG 12-LEAD Routine 12/03/2015 11:00 AM Chronic atrial Result s for this EDT fibrillation procedure are i n the results section. documented in this encounter Results EKG 12 Lead (12/03/2015 11:00 AM EDT) Component Value Ref Range Test Analysis Performed Pathologis t Method Time At Signature Ventricular rate 74 BPM MUSE SYSTEM Atrial Rate 104 BPM MUSE SYSTEM QRS Duration 96 ms MUSE SYSTEM Q-T Interval 396 ms MUSE SYSTEM QTC Calculated 439 ms MUSE SYSTEM (Bezet) Calculated R [place] -26 degrees MUSE SYSTEM Calculated T [place] 21 degrees MUSE SYSTEM INTERPRETATION Atrial fibrillation with pre mature ventricular or aberrantly conducted complexes MUSE SYSTEM When compared with ECG of 03-MAY-2014 13:46, Atrial fibrillation has replaced Sinus rhythm QT has lengthened Confirmed by MD PABLO, CHINO ([id number]) on 12/03/2015 1:39:41 PM Specimen Anatomical Collection Method Collection Time Receive d Time (Source) Location / / Volume Laterality 12/03/2015 11:00 12/03/2015 1:39 AM EDT PM EDT Alexis Shook MD ECG ORDERABLES Performing Organization Address City/State/ZIP Code Phon e Number MUSE SYSTEM documented in this encounter Visit Diagnoses Diagnosis Chronic atrial fibrillation Atrial fibrillation Essential hypertension, hypertension wit h unspecified goal Left ventricular hypertrophy Cardiomegaly documented in this encounter Care Teams Family Medicine Resident Relationship Specialty Start Date End Date Matt Duncan MD PCP - General 04/28/13 11/30/16 [facility] [address] [place] [address] documented as of this encounter
--- OUTSIDE RECORDS SUMMARY | 2022-04-14 13:32 | XMS_ITS | Encounter Summary ---
:1940 Author Organization [facility] [place] [address] Care Team Providers Name Role Phone Matt Duncan MD Primary Care Provider Reason for Visit Reason Comments Skin Check Encounter Details Date Type Department Care Team Description 02/01/2014 Follow-Up Dermatology at [facility], History of melanoma (Primary Dx); Kelly SAUCEDO History of squamous cell carcinoma; [address] [facility] [place] (actinic keratosis); [place] [address] [address] [address] Kelly angioma; [phone] [facility] Benign nevus; -DERMATOLGY [place] (seborrheic keratosis) [place], [place] [address] (Wo rk) Social History Tobacco Use Types Packs/Day Years Used Date Never Smoker Sex Assigned at Date Recorded Not on file documented as of this encounter Progress Notes Sakshi Meek MD - 02/01/2014 10:57 AM EDT DERMATOLOGY - ESTABLISHED PATIENT FOLLOW-UP Reinier Ramirez Date of service: 02/01/2014 : 1940 Provider: Sakshi Meek MD Chief Problem: Chief Complaint Patient presents with ??? Skin Check Mr. Reinier Ramirez is a 73 y.o. male. This is an established patient, new to me. Last seen by Dr. Rossi on 04/28/2013 HPI: Mr. Ramirez presents for a melanoma full skin check. He has no new areas of concern. Patient states doing well overall. Tries to be good about protective clothing while out doors in [facility]. He spends song in [place] and [place]. Sees a order processing clerk regularly in [place] in the winter Skin History: - BCC right clavicle s/p ED&C - Pt brought path report from re-excision of lesion on right forearm, but no original biopsy: Moderately atypical junctional Melanocytic proliferation residual. No evidence of Melanoma Margins are free. 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 Medical History: Patient Active Problem List Diagnosis Code ??? History of melanoma V10.82 Medications: aspirin 81 mg EC tablet Allergies: No Known Allergies Family History: No family history of melanoma or non-melanoma skin cancer No family history of atopy, psoriasis or other skin disease Social History: Lives in [place] goes to [place] in song; , never a smoker Review of Systems: - General: Feels well. - Skin: As per HPI; no other skin concerns. MELANOMA SPECIFIC ROS General: feeling well Constitutional: Denies unintentional weight loss, weakness, fever Respiratory: Denies cough, chest pain, shortness of breath Hepatic/GI: Denies abdominal pain, jaundice, vomiting Neurologic: Denies headache, visual disturbances, seizures, numbness, balance problems Musculosketetal: Denies bone pain (e.g. rib, spine, hip) Lymphatics: swollen glands or lumps Skin: denies new or changing skin lesions other than those (if any) noted in HPI Examination: - Constitutional: Patient was alert, well-appearing [...] findings: 1. 0.2-0.3cm scaly irregular pink papule(s) ?? Right cheek x 4 ?? Right elbow x 1 ?? Right dorsal hand x 3 ?? Left forearm x 1 ?? Left helix x 2 ?? Left cheek x 3 ?? Bridge of nose x 2 2. Melanoma scar palpated, no evidence of recurrence 3. Multiple 0.2-0.4cm bright red, well-demarcated papules located on trunk 4. Multiple 0.4-1 cm, brown-black papules/plaques with waxy stuck on appearance scatted 5. Multiple, 0.3-0.5cm, medium-brown, evenly-pigmented macules and papules. All with regular pigmentpattern on dermoscopy. No pigmented lesions suspicious for melanoma. Diagnosis/Assessment/Treatment Plan: 1. Actinic keratoses - Procedure Note: Procedure: Destruction of lesion(s) with [...] no evidence of recurrence. Since melanoma in 08/2010. 3. Kelly Angioma(s) Patient reassured. Benign in nature 4. seborrheic keratosis - Etiology discussed with patient - Patient reassured lesions are benign in nature 5. Benign appearing nevi with even pigmentation and well defined margins are noted. -Discussed importance of sun protection, sun avoidance strategies, protective clothing, and sunscreen. RTC in 1 year. Quill Winder in [place] will do full skin exam in 6 months-patient spends song there. Instructed to call for questions/concerns. Note initiated by: Yen Mccarthy LPN Routed to physician for review and changes: Sakshi Meek MD Utility Agent of Dermatology, [employer] Messenger[employer] Agentscreen vent binder (Dermatopathology) [facility] documented in this encounter Plan of Treatment Not on filedocumented as of this encounter Visit Diagnoses Diagnosis History of melanoma - Primary Personal history of malignant melanoma o f skin History of squamous cell carcinoma Personal history of malignant neoplasm o f other site [place] (actinic keratosis) Actinic keratosis Kelly angioma Nevus, non-neoplastic Benign nevus Benign neoplasm of skin, site unspecifie d [place] (seborrheic keratosis) Other seborrheic keratosis documented in this encounter Care Teams Manager Corporate Responsibility Relationship Specialty Start Date End Date Matt Duncan MD PCP - General 04/28/13 11/30/16 [facility] [address] [place] [address] documented as of this encounter
--- OUTSIDE RECORDS SUMMARY | 2022-04-14 13:32 | XMS_ITS | Encounter Summary ---
:1940 Author Organization [facility] [place] [address] Care Team Providers Name Role Phone Matt Duncan MD Primary Care Provider Encounter Details Date Type Department Care Team Description 03/24/2016 Office Visit Cardiology [place] [facility] Alexis Shook, BPV (benign positional verti go), unspecified laterality; [facility] [place] [address] CARDIOLOGY DEPT. [phone] [place], [place] [address] Social History Tobacco Use Types Packs/Day Years Used Date Never Smoker Smokeless Tobacco: Never Used Alcohol Use Standard Drinks/Week Comments No 0 (1 standard drink = 0.6 oz pure alcoho l) Sex Assigned at Date Recorded Not on file documented as of this encounter Last Filed Vital Signs Vital Sign Reading Time Taken Comments Blood Pressure 117/75 03/24/2016 8:15 AM EDT avg of 3 Pulse 70 03/24/2016 8:15 AM EDT Temperature - - Respiratory Rate - - Oxygen Saturation 99% 03/24/2016 8:15 AM EDT Inhaled Oxygen Concentration - - Weight 114.9 kg (253 lb 3.2 oz) 03/24/2016 8:15 AM EDT Height 180.3 cm (5' 11) 03/24/2016 8:15 AM EDT Body Mass Index 35.31 03/24/2016 8:15 AM EDT documented in this encounter Progress Notes Alexis Shook MD - 03/24/2016 8:30 AM EDT Images from the original note were not included. [facility] [place] [address] [place] [address] CARDIOLOGY OUTPATIENT FOLLOW-UP NOTE Reinier Ramirez [id number] PCP: MATT DUNCAN MD 03/24/2016 PRIMARY CARE PROVIDER: MATT DUNCAN MD PROBLEM LIST: Patient Active Problem List Diagnosis ??? MICK (obstructive sleep apnea) ??? Morbid obesity ??? Bilateral leg weakness ??? Chronic atrial fibrillation ?? Diagnosed 11/2013, without symptoms during visit with clinical nursing manager, ?? Asymptomatic ?? [id number] score = 2 (age and HTN) ??? [...] visit. SUBJECTIVE: This 75-year-old man comes for follow-up visit. He has chronic atrial fibrillation and is anticoagulated. In recent times he has had episodes of dizziness. On further questioning it sounds as though he develops a sense of spinning or vertigo. Episodes are prominent when he rolls over in bed and sometimes when he first gets up in the morning. He has been seen by his primary care physician who tried him on some meclizine. This has helped although he still has some mild symptoms. He has notpassed out or fallen to the ground. He has no known her problems although does swim fairly frequently and wonders if he might have developed an infection. Regarding his atrial fibrillation, he remain stable in this regard, having no awareness of his rhythm and tolerating the Xarelto. OBJECTIVE: Vital Signs: BP 117/75 Comment: avg of 3 Pulse 70 Ht 180.3 cm (5' 11) Wt (!) 114.9 kg (253 lb 3.2 oz) SpO2 99% BMI 35.31 kg/m2 Physical Exam: On examination today he appeared in no acute distress. His vital signs are summarizedabove. He had no JVD. Lungs were clear. Heart exam revealed an irregularly irregular rhythm at a controlled rate. He had no murmurs, rubs, or gallops. His abdomen was soft and nontender. He had a traceof lower extremity edema. DIAGNOSES: 1. Chronic atrial fibrillation 2. Probable benign positional vertigo IMPRESSIONS: He is doing well in terms of his atrial fibrillation. He is tolerating the Xarelto and reporting no bleeding problems. Regarding the vertigo, this is likely benign positional vertigo. I recommended follow-up with his PCP and consideration for formal referral to ENT where perhaps he might get some longer-term relief with an Catarino maneuver. PLAN: 1. Continue current medications 2. Follow-up with PCP regarding BPV 3. Consider formal ENT referral 4. Cardiology follow-up in one year documented in this encounter Plan of Treatment Not on filedocumented as of this encounter Visit Diagnoses Diagnosis BPV (benign positional vertigo), unspeci fied laterality Chronic atrial fibrillation Atrial fibrillation documented in this encounter Care Teams Clinic Office Manager Relationship Specialty Start Date End Date Matt Duncan MD PCP - General 04/28/13 11/30/16 [facility] [address] [place] [address] documented as of this encounter
--- OUTSIDE RECORDS SUMMARY | 2022-04-14 13:32 | XMS_ITS | Encounter Summary ---
:1940 Author Organization [facility] [place] [address] Care Team Providers Name Role Phone Matt Duncan MD Primary Care Provider Encounter Details Date Type Department Care Team Description 02/19/2015 Follow-Up Cardiology at [facility] Alexis Shook, Chronic atrial fibrillation; [facility] [place] [address] CARDIOLOGY DEPT. [place] [id number] (Wo rk) Social History Tobacco Use Types Packs/Day Years Used Date Never Smoker Smokeless Tobacco: Never Used Alcohol Use Standard Drinks/Week Comments No 0 (1 standard drink = 0.6 oz pure alcoho l) Sex Assigned at Date Recorded Not on file documented as of this encounter Last Filed Vital Signs Vital Sign Reading Time Taken Comments Blood Pressure 130/62 02/19/2015 10:36 AM EDT Pulse 55 02/19/2015 10:36 AM EDT Temperature - - Respiratory Rate - - Oxygen Saturation 97% 02/19/2015 10:36 AM EDT Inhaled Oxygen Concentration - - Weight 112.9 kg (249 lb) 02/19/2015 10:36 AM EDT Height 180.3 cm (5' 11) 02/19/2015 10:36 AM EDT Body Mass Index 34.73 02/19/2015 10:36 AM EDT documented in this encounter Progress Notes Alexis Shook MD - 02/19/2015 11:41 AM EDT Images from the original note were not included. [place] [address] CARDIOLOGY OUTPATIENT FOLLOW-UP NOTE Reinier La Ashley [id number] PCP: MATT DUNCAN MD (General) 02/19/2015 PRIMARY CARE PROVIDER: MATT DUNCAN MD (General) PROBLEM LIST: Patient Active Problem List Diagnosis ??? MICK (obstructive sleep apnea) ??? Morbid obesity ??? Bilateral leg weakness ??? Chronic atrial fibrillation ?? Diagnosed 11/2013, without symptoms during visit with market editor, ?? Asymptomatic ?? [id number] score = 2 (age and HTN) ??? [...] No current facility-administered medications for this visit. VITAL SIGNS: BP 130/62 mmHg Pulse 55 Ht 180.3 cm (5' 11) Wt 112.946 kg (249 lb) BMI 34.74 kg/m2 SpO2 97% SUBJECTIVE: This 74-year-old man was diagnosed with atrial fibrillation in November 2013 when he presented to his market editor without symptoms and was noted to have an irregular rhythm. His evaluation was notable only for some eccentric LVH with moderate LV dilatation on an echocardiogram in February 2014. His ejection fraction was normal. He was anticoagulated with 1 of the newer agents. He has a [id number] of 2. He has no history of stroke or TIA. His other medical problems include hypertension, obstructive sleep apnea, diverticulosis, melanoma a couple of years ago removed from his right arm, and obesity. He says that he is doing reasonably well. His biggest issue relates to leg weakness which resulted from quadriceps problems on both legs. He has a difficult time walking. He is able to swim on a daily basis while in [place] and while in [place] only about twice per week. He describes no breathing problems. He is free of chest pain. He denies orthopnea, PND, palpitations, or edema. OBJECTIVE: On examination he appeared in no acute distress. His vital signs included a blood pressure of 130/62 and a pulse of 55. He had no JVD. His lungs were clear. His heart exam revealed an irregularly irregular rhythm without murmurs, rubs, or gallops. His abdomen was soft and nontender. He had 1+ edema below the knees bilaterally. ASSESSMENT: In summary, this is a 74-year-old man with chronic atrial fibrillation. He has an elevated chads 2 vascular score PLAN: 1. Continue current medications 2. We spent a good deal of time talking about ways by which he might lose some weight 3. Stay as active as possible; consider dedicated physical therapy 4. Cardiology follow-up in 1 year documented in this encounter Plan of Treatment Not on filedocumented as of this encounter Visit Diagnoses Diagnosis Chronic atrial fibrillation Atrial fibrillation Obesity Obesity, unspecified documented in this encounter Care Teams Vehicle Technician Relationship Specialty Start Date End Date Matt Duncan MD PCP - General 04/28/13 11/30/16 [facility] [address] [place] [address] documented as of this encounter
--- OUTSIDE RECORDS SUMMARY | 2022-04-14 13:32 | XMS_ITS | Encounter Summary ---
:1940 Author Organization [facility] [place] [address] Care Team Providers Name Role Phone Matt Duncan MD Primary Care Provider Encounter Details Date Type Department Care Team Description 04/21/2016 Telephone Dermatology at [facility] Sakshi Meek MD [address] [facility] [place] [address] [facility] [phone] [place], [place] [address] (Wo rk) Social History Tobacco Use Types Packs/Day Years Used Date Never Smoker Smokeless Tobacco: Never Used Alcohol Use Standard Drinks/Week Comments No 0 (1 standard drink = 0.6 oz pure alcoho l) Sex Assigned at Date Recorded Not on file documented as of this encounter Miscellaneous Notes Telephone Encounter - Elena Everett LPN - 04/21/2016 2:23 PM EDT Spoke with patient. I advised him I have not heard back from Dr. Meek with a plan on regarding hisMohs before he leaves for [place]. I asked him if he sees a Air Brake Rigger when he spends his winter's there, he reports he sees Dr. Jett in [place], [place]. I advised patient I can ask Dr. Meek what she thinks about getting the Mohs procedure there. Patient verbalized understanding and is happy with this plan. I called Dr. Jett's Dermatology office and spoke with Michelle. She reports they do not do Mohs at their office, but Dr. Jett can see him for a consult to assess the pathology, and refer himto their Mohs surgeon, Dr. Plaza. She reports we may fax the patient's office note and pathology for a referral, they will call to schedule a consult and refer him to Mohs from there. Dr. Meek notified. Will wait for her and the patient's response before sending the referral. ELENA EVERETT LPN documented in this encounter Plan of Treatment Not on filedocumented as of this encounter Visit Diagnoses Not on filedocumented in this encounter Care Teams Compliance Project Manager Relationship Specialty Start Date End Date Matt Duncan MD PCP - General 04/28/13 11/30/16 [facility] [address] [place] [address] documented as of this encounter
--- OUTSIDE RECORDS SUMMARY | 2022-04-14 13:32 | XMS_ITS | Encounter Summary ---
:1940 Author Organization [facility] [place] [address] Care Team Providers Name Role Phone Daphnie Rivera Mini BOURGEOIS Primary Care Provider Reason for Visit Reason Comments Basal Cell Carcinoma ED&C Right clavicle Encounter Details Date Type Department Care Team Description 07/22/2012 Follow-Up Dermatology at [facility] B hardeep cell carcinoma Kelly SAUCEDO (Primary Dx) [address] [place] [address] [facility] INA-DERMATOLOGY [place], [place] [address] (Wo rk) Social History Tobacco Use Types Packs/Day Years Used Date Never Smoker Sex Assigned at Date Recorded Not on file documented as of this encounter Progress Notes Haris Meredith III, MD - 07/23/2012 11:15 AM EST I was the supervising physician working with dermatology resident Dr. Eugenio Snyder in the dermatology clinic during this patient visit. The level of Resident supervision for this patient visit was indirect supervision with direct supervision immediately available. (definition: [facility] GME Policy Statement on Graduate Medical Education, Supervision of Graduate Medical Trainees) I was immediately available to Dr. Snyder for questions and discussion regarding this visit. I have reviewed his encounter notedetails and level of service. Eugenio Snyder MD - 07/22/2012 3:17 PM EST DERMATOLOGY - ESTABLISHED PATIENT FOLLOW-UP Date of service: 07/22/2012 Reinier Ramirez : 1940 Dermatology Resident Note: Eugenio Snyder MD Chief Problem: ED&C right clavicle No chief complaint on file. Mr. Reinier Ramirez is a 72 y.o. male. This is an established patient, last seen by me on 07/04/2012. HPI: Mr. Ramirez presents for ED&C for a biopsy proven Basal Cell Carcinoma on right clavicle. He has no other skin concerns. He will be away for the winter months enjoying his home in [facility]. He sees his other outreach analyst while he is in [place]. Skin History: Acc #: [id number] Pt. Col Date: 07/04/2012 /Sex: 1940,(72 years),Male Rec Date: 07/04/2012 LOC: HDM ---Pathologic Diagnosis--- Skin, right clavicle, shave biopsy: Basal cell carcinoma. Pt brought path report from re-excision of lesion on right forearm, but no original biopsy: Moderately atypical junctional Melanocytic proliferation residual. No evidence of Melanoma Margins are free. 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 Medications: Current Outpatient Prescriptions on File Prior to Visit Medication Sig Dispense Refill ??? hydroCODone-acetaminophen (VICODIN) 5-500 mg per tablet Take 1 tablet by mouth every 6 hours as needed. ??? aspirin 81 mg EC tablet Take 81 mg by mouth daily. Allergies: No Known Allergies Social History: Retired , lived in [facility] part of year. Review of Systems: - General: Feels well. - Skin: As per HPI; no other skin concerns. Examination: - Constitutional: Patient was alert, well-appearing and in no noticeable distress. - Focused exam of right clavicle Specific skin findings: 1. .8 cm x .5 cm pink papule with crust on right clavicle c/w healing biopsy site Diagnosis/Assessment/Treatment Plan: 1. Basal Cell Carcinoma- Procedure only visit for ED & C Procedure: Destruction of lesion. Site: right clavicle. Discussed indications and expectations including risks and benefits. Verbal consent obtained. Skin prep. Local anesthesia: buffered 1% lidocaine with epinephrine. The entire lesion plus a small 2mm margin was treated by curettage and electrodesiccation 3. Post-curettage defect size: .9 cm x .9 cm. No complications. Wound dressed. Expectations (including discomfort management) and wound care reviewed. Follow-up: 6- 8 months for a full skin exam will see his [place] outreach analyst in the interim. Instructed to call for questions or concerns. Eugenio Snyder MD Resident in Dermatology [facility] staff outreach analyst: Haris Meredith MD Section of Dermatology [facility] documented in this encounter Plan of Treatment Not on filedocumented as of this encounter Visit Diagnoses Diagnosis Basal cell carcinoma - Primary Basal cell carcinoma of skin, site unspe cified documented in this encounter Care Teams Cylinder Press Operator Relationship Specialty Start Date End Date Daphnie Rivera APRN PCP - General 07/04/12 04/27/13 documented as of this encounter
--- OUTSIDE RECORDS SUMMARY | 2022-04-14 13:32 | XMS_ITS | Encounter Summary ---
:1940 [place] [address] Care Team Providers Name Role Phone Daphnie Rivera CHRISTELLE Primary Care Provider Reason for Visit Reason Comments Follow-up melanoma Encounter Details Date Type Department Care Team Description 01/20/2013 Follow-Up Dermatology at [facility] Abhinav Rossi MD AK (actinic keratosis) (Primary Dx); [facility] Personal history of malignan t melanoma of skin [address] [place] [address] [facility] [phone] RD-DERMATOLOGY [place], [place] [address] (Wo rk) Social History Tobacco Use Types Packs/Day Years Used Date Never Smoker Sex Assigned at Date Recorded Not on file documented as of this encounter Progress Notes Sotero Roberts MD - 01/20/2013 1:39 PM EDT I was the supervising physician working with dermatology resident Dr. Hunog Rossi in the dermatology clinic during this patient visit. The level of Resident supervision for this patient visit was indirect supervision with direct supervision immediately available. (definition: [facility] Policy Statement on Graduate Medical Education, Supervision of Graduate Medical Trainees) I was immediately available to Dr. Rossi for questions and discussion regarding this visit. I have reviewed her encounter note details and level of service. Huong Rossi MD - 01/20/2013 1:00 PM EDT DERMATOLOGY - ESTABLISHED PATIENT FOLLOW-UP Reinier Ramirez Date of service: 01/20/2013 : 1940 Dermatology Resident Note: Huong Rossi MD Chief Problem: Chief Complaint Patient presents with ??? Follow-up melanoma Mr. Reinier Ramirez is a 72 y.o. male. This is an established patient, last seen by Eugenio Snyder MD on 07-22-2012. New pt to me. HPI: Mr. Ramirez presents for 3 follow-up of melanoma on the right forearm s/p WLE, SNLB, and skin graft. Pt has no concerning lesions today. Has noticed a few new rough spots on bilateral forearms, cheeks, and ears. Tries to be good about wearing a hat - not always great about sunscreen. Denies: Fever/chills Unexplained weight loss Syncope Shortness [...] Melanoma-right forearm-2010, negative lymph nodes. Medical History: Denies any health problems. Medications: aspirin 81 mg EC tablet; DISCONTD: hydroCODone-acetaminophen (VICODIN) 5-500 mg per tablet Allergies: No Known Allergies Family History: No family history of melanoma or non-melanoma skin cancer No family history of atopy, psoriasis or other skin disease Social History: Accompanied by his today, never a smoker Review of Systems: - [...] with patient consent. Genitalia were not examined. No lymphadenopathy, including the supraclavicular, cervical, axillary, and inguinal areas. Melanoma excision site scar was examined and palpated. There was no increase in pigmentation or induration at this site. Specific skin findings: 1. Scar right forearm, no increased pigment or nodules 2. 0.2-0.3cm scaly irregular pink papules- -right dorsal hand x 1 - right forearm x 7. -left dorsal hand x 2. -left forearm x 5. -left cheek x 2. -right cheek x 1 -right superior helix x 1 -left superior helix x 2 3. Hypopigmented round scar right clavicle Diagnosis/Assessment/Treatment Plan: 1. History of melanoma - No concerning pigmented lesions on today's exam. 2. Actinic Keratoses: Discussed premalignant potential of lesions with patient and counseled that destruction with liquid nitrogen therapy is recommended. Patient agreed to the procedure after discussing risks/benefits/alternatives of the procedure, including hypopigmentation and discomfort. Wound care reviewed. Procedure: Destruction of lesion(s) with cryotherapy. Number: 22 Location: as above Discussed procedure and expectations including risks (including risk of hypopigmentation) and benefits. Verbal consent obtained. Frozen with LN2, 15-30 second thaw time, TWICE. There were no complications; the patient tolerated the procedure well. Post-procedure expectations and wound care were reviewed. Discussed importance of sun protection, sun avoidance strategies, protective clothing, and sunscreen. 3. History of BCC: no evidence of recurrence. Continue sun protection. RTC in 3 months f/u AK's, melanoma. Instructed to call for questions/concerns. Huong Rossi MD Resident in Dermatology [facility] Staff psychodramatist: Alli Roberts MD Section of Dermatology [facility] I performed the above scribed service and agree with the accuracy of the documentation in this encounter. documented in this encounter Plan of Treatment Not on filedocumented as of this encounter Visit Diagnoses Diagnosis AK (actinic keratosis) - Primary Actinic keratosis Personal history of malignant melanoma o f skin documented in this encounter Care Teams Fish Salter Relationship Specialty Start Date End Date Daphnie Rivera, FONDANT COOKER PCP - General 07/04/12 04/27/13 documented as of this encounter
--- OUTSIDE RECORDS SUMMARY | 2022-04-14 13:32 | XMS_ITS | Encounter Summary ---
:1940 [place] [address] Care Team Providers Name Role Phone Matt Duncan MD Primary Care Provider Encounter Details Date Type Department Care Team Description 02/15/2014 Hospital Encounter Non-Invasive Cardiology [place] [address] Social History Tobacco Use Types Packs/Day Years Used Date Never Smoker Smokeless Tobacco: Never Used Sex Assigned at Date Recorded Not on file documented as of this encounter Medications at Time of Discharge Medication Sig Dispensed Refills Start Date End Date atenolol (TENORMIN) 25 Take 25 mg by mouth 0 05/03/2014 mg tabletIndications: daily. Indications: atrial fibrillation atrial fibrillation aspirin 81 mg chewable Take 81 mg by mouth 0 04/12/2017 tablet daily. losartan (COZAAR) 50 mg Take 50 mg by mouth 0 05/03/2014 tablet daily. atorvastatin (LIPITOR) Take 1 tablet by mouth 90 tablet 3 0 02/15/2014 05/03/2014 40 mg tablet daily. rivaroxaban (XARELTO) Take 1 tablet by mouth 0 05/03/2014 20 mg Tab daily. documented as of this encounter Plan of Treatment Not on filedocumented as of this encounter Procedures Procedure Name Priority Date/Time Associated Diagnosis Comme nts ECHOCARDIOGRAM Routine 02/15/2014 12:58 Palpitations Results f or this TRANSTHORACIC(LEB) PM EDT procedure are in the results section. documented in this encounter Results Echocardiogram Transthoracic(Leb) (02/15/2014 12:58 PM EDT) athologist Signature EF 55 HEARTLAB SYSTEM Anatomical Region Laterality Modality Other Specimen (Source) Anatomical Location Collection Method / Collectio n Time Received Time / Laterality Volume 02/15/2014 Narrative 02/15/2014 1:17 PM EDT Procedure: ? Transthoracic Echocardiogram Patient: ? BALAJI La ?(Age): 1940(73) Med Rec#: ?[id number] ? Sex: ?M ? Site Loc: ?[facility] ? Ht / Wt: ??180(cm)/109.5(k Pt. Loc: ? Echo Lab ? BSA: ?2.34 Study Date: ?02/15/2014 ? Pt. Type: Outpatient Tape: ? Referring: Jackson Silver Shading Painter: Jeevan Hernandez MS, [facility] Diagnosis: ??Palpitations (785.1) CPT Code(s): ??Color Doppler (36244), ?? Echo Full (76767), ??Spectral Doppler (87010), Indication(s): ??Palpitations Rhythm: SUMMARY: 1. The left [...] ? Mid-Inferior ?Hypokinetic ? Mid-Inferoseptal ?Normal ? [place]-Septal ? Normal ? [place]-Anterior ? Normal ? [place]-Lateral ?Normal ? [place]-Inferior ? Normal ? [place]-Tip ?Normal ? [place] ?Value ?Units (Range) ? [...] ? 02/15/2014 13:16:54 Images reviewed and interpretation jonathan guajardo [facility] Cardiac Ultrasound Laboratory Procedure Note Tyson Colin MD - 02/15/2014Format ting of this note might be different from the original. Procedure: Transthoracic Echocardiogram Patient: BALAJI CARLISLE(Age): [birth year]) Med Rec#: [id number] Sex: M Site Loc: [facility] Ht / Wt: 180(cm)/109.5(k Pt. Loc: Echo Lab BSA: 2.34 Study Date: 02/15/2014 Pt. Type: Outpati ent Tape: Referring: Jackson Silver Shading Painter: Jeevan Hernandez MS, [facility] Diagnosis: Palpitations (785.1) CPT Code(s): Color Doppler (19459), Echo Full (13798), Spectral Doppler (10995), Indication(s): Palpitations Rhythm: SUMMARY: 1. The left [...] Normal Mid-Posterolateral Hypokinetic Mid-Inferior Hypokinetic Mid-Inferoseptal Normal [place]-Septal Normal [place]-Anterior Normal [place]-Lateral Normal [place]-Inferior Normal [place]-Tip Normal Chambers Value Units (Range) IVSd MM [...] 02/15/2014 13:16: 54 Images reviewed and interpretation jonathan guajardo [facility] Cardiac Ultrasound [facility] Jackson Silver MD ECHO ORDERABLES documented in this encounter Visit Diagnoses Diagnosis Palpitations documented in this encounter Care Teams Optical Brightener Maker Helper Relationship Specialty Start Date End Date Matt Duncan MD PCP - General 04/28/13 11/30/16 [facility] [address] [place] [address] documented as of this encounter
--- OUTSIDE RECORDS SUMMARY | 2022-04-14 13:32 | XMS_ITS | Encounter Summary ---
:1940 Author Organization [facility] [place] [address] Care Team Providers Name Role Phone Matt Duncan MD Primary Care Provider Encounter Details Date Type Department Care Team Description 02/21/2016 Telephone Cardiology at [facility] Mary Ann Bailey, [place] [address] Social History Tobacco Use Types Packs/Day Years Used Date Never Smoker Smokeless Tobacco: Never Used Alcohol Use Standard Drinks/Week Comments No 0 (1 standard drink = 0.6 oz pure alcoho l) Sex Assigned at Date Recorded Not on file documented as of this encounter Miscellaneous Notes Telephone Encounter - Alexis Shook MD - 02/21/2016 3:43 PM EDT I returned a call to the patient. He tells me that following some food on Wednesday night he noted that when getting up that night he felt somewhat dizzy, queasy, and felt the room spinning. It lasted about 20 seconds and resolved. At no point did he actually feel lightheaded or like he might pass out. He had similar but less intense feelings last night. He has a long history of ear problems related to swimming, diving, and multiple infections. He is feeling fine during the day. Although he started a new bottle of Xarelto, he says the pills looked identical. On the basis of his description, it sounds as though he is having vertigo. It does not sound like itwas orthostatic hypotension. He has an appointment set up with his PCP on Wednesday of next week. Since he is getting gradually better, I think it reasonable for him to wait until then. On the basis ofhis description of the symptoms, it sounds like an inner ear issue and not a cardiac or cardiovascular issue. Telephone Encounter - Mary Ann Bailey RN - 02/21/2016 9:40 AM EDT For the last 2 days he has been dizzy when he gets up, has to stand for at least 20 seconds before he can walk. No other complaints, has not been ill, no change in medications, fells he is hydrated. They do not have a BP cuff, and have no idea what BP or HR is. Denies bowel changes, or black stools. The only thing that has changed is he is currently not using his CPAP as he needed to get a new mask, which he just got. Called his PCP's office, got an appointment for 02/25, and was told to call his Fur Dry Cleaner for advice today. documented in this encounter Plan of Treatment Not on filedocumented as of this encounter Visit Diagnoses Not on filedocumented in this encounter Care Teams Inspector Final Assembly Electrical Relationship Specialty Start Date End Date Matt Duncan MD PCP - General 04/28/13 11/30/16 [facility] [address] [place] [address] documented as of this encounter
--- OUTSIDE RECORDS SUMMARY | 2022-04-14 13:32 | XMS_ITS | Encounter Summary ---
:1940 Author Organization [facility] Address [facility] [place] [address] Care Team Providers Name Role Phone Matt Duncan MD Primary Care Provider Reason for Referral Consultation (Routine) - Closed by system - Referral Specialty Diagnoses / Procedures Referred By Contact Refer red To Contact Sleep Medicine / Sleep Diagnoses Snoring Solis Estrella MD [facility] [address] [place], [place] CARDIOLOGY DEPT [phone] [place] [address] Referral ID Status Reason Start Expiration Visits Visits Date Date Requested Authorized [id number] Closed by Consult 10/30/2014 1 1 system - Only 4 Referral Reason for Visit Reason Comments Atrial Fibrillation Encounter Details Date Type Department Care Team Description 05/03/2014 Follow-Up Cardiology at [facility] [place] Solis Estrella MD Atrial fibrillation; [facility] [place] [address] CARDIOLOGY DEPT [phone] [place], [place] [address] (Wo rk) Social History Tobacco Use Types Packs/Day Years Used Date Never Smoker Smokeless Tobacco: Never Used Alcohol Use Standard Drinks/Week Comments No 0 (1 standard drink = 0.6 oz pure alcoho l) Sex Assigned at Date Recorded Not on file documented as of this encounter Last Filed Vital Signs Vital Sign Reading Time Taken Comments Blood Pressure 122/60 05/03/2014 1:45 PM EDT Pulse 56 05/03/2014 1:45 PM occ. skipped EDT beats,radial Temperature - - Respiratory Rate - - Oxygen Saturation 95% 05/03/2014 1:45 PM EDT Inhaled Oxygen - - Concentration Weight 109.3 kg (241 lb) 05/03/2014 1:45 PM EDT Height 180.3 cm (5' 11) 05/03/2014 1:45 PM EDT Body Mass Index 33.61 05/03/2014 1:45 PM EDT documented in this encounter Progress Notes Lane Varela MD - 05/04/2014 2:55 PM EDT I was the supervising physician during this visit. I did not personally see the patient. For the purposes of billing, care was provided by the freelance programmer/app developer. Lane Varela M.D. Staff Application Security Engineer pager [phone] Fitzsydnie Solis - 05/03/2014 12:53 PM EDT Cardiology Established Patient Visit PCP: MATT DUNCAN MD CC: Follow up of atrial fibrillation, eccentric LVH, hypertension Patient Active Problem List Diagnosis ??? PAF (paroxysmal atrial fibrillation) Overview Note: -diagnosed 11/2013, placed on rivaroxaban for stroke risk -asymptomatic ??? Hypertension ??? Snoring ??? Diverticulosis ??? Left ventricular hypertrophy Overview Note: -TTE 02/17/2014 shows eccentric left ventricular enlargement (moderate LV dilation with LVEDD 6.3cm, normal LVEF 55%, no concentric LVH) ??? AK (actinic keratosis) ??? History of melanoma HPI: Reinier Ramirez is a 74 y.o. 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 He previously had workup of LV dilation and atrial fibrillation with negativeexercise nuclear stress test in October 2013. He is accompanied by his girlfriend. He reports his functional capacity is unchanged, limited by chronic knee arthritis, without dyspnea or angina. He denies orthopnea or PND. He continues to snore. His legs are not swollen, but he has gained a 10 lbs, due to poor diet (cookies, donuts, etc.) and decreased exercise (he swims daily in [place] and gardens in the summer. He had a tooth extracted. He stopped his rivaroxaban 2 days prior, and resumed it the evening after the procedure. He had persistent bleeding for 8 days after (while still taking rivaroxaban). He saw his oral surgeon again, and it sounds like manual hemostasis took care of the bleeding. He remains on rivaroxaban. He received some paperwork from our sleep clinic, but a formal consultation has not been set up. ROS: : (-) hematuria (-) hematochezia/melena (-) epistaxis, see above for oral bleeding (+) 10 lb weight gain due to diet and exercise (-) syncope/presysncope PMH: Past Medical History Diagnosis Date ??? Melanoma ??? Diverticulosis ??? Diverticulitis ??? Knee joint disorder ??? Paroxysmal atrial fibrillation ??? Hypertension Medications: Outpatient Prescriptions Marked as Taking for the 05/03/14 encounter (Follow-Up) with Solis Estrella MD Medication Sig Dispense Refill ??? aspirin 81 mg chewable tablet Take 81 mg by mouth daily. ??? [DISCONTINUED] atenolol (TENORMIN) 25 mg tablet Take 25 mg by mouth daily. Indications: atrial fibrillation ??? [DISCONTINUED] losartan (COZAAR) 50 mg tablet Take 50 mg by mouth daily. ??? [DISCONTINUED] atorvastatin (LIPITOR) 40 mg tablet Take 1 tablet by mouth daily. 90 tablet 3 ??? [DISCONTINUED] rivaroxaban (XARELTO) 20 mg Tab Take 1 tablet by mouth daily. Allergies as of 05/03/2014 ??? (No Known Allergies) Social History: History Social History ??? Marital Status: Single Spouse Name: N/A Number of Children: N/A ??? 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 Smoking status: Never Smoker ??? Smokeless tobacco: Never Used ??? Alcohol Use: No ??? Drug Use: No ??? Sexually Active: Other Topics Concern ??? 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 Lives with his long-time girlfriend. Splits his time between [place], [place] and [place]. Family History: No family history on file. Exam: Vitals: There were no vitals filed for this visit. General: In no acute distress, nondiaphoretic, nontachypneic Head: normocephalic, atraumatic ENT: clear oropharynx, moist mucous membranes CV: JVP 7 cm, S1S2 regularly regular, no murmurs/rubs/gallops, no RV heave, PMI nondisplaced Lungs: Clear to auscultation bilaterally, no wheezes/rales/rhonchi, Abdomen: soft, NT/ND Ext: no clubbing, cyanosis or edema. Pedal pulses 2+. Labs: No results found for this or any previous visit (from the past 24 hour(s)). Recent Labs Basename 02/15/14 1329 HDL 37* LDLCHOL 128* LDLDIRECT -- TRIG 123 Recent Labs Basename 02/15/14 1329 PT 19.1* INR 1.5* PTT -- EKG: sinus bradycardia, 56 bpm, left axis deviation, no signs of ischemia or infarction. Echo 02/15/14 1. The left ventricle is moderately dilated. [...] See remainder of report for additional findings. 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 He previously had workup of LV dilation and atrial fibrillation with negative exercise nuclear stress test in October 2013. Other than a nuisance bleeding episode, he is doing clinically well. For his atrial fibrillation, heremains in sinus rhythm on a low dose of atenolol. We talked on the elevated bleeding risks of rivaroxaban, and the black box warnings including warning on periprocedural anticoagulation. He understands to notify physicians prior to any planned procedures. He has an upcoming cataract procedure, and can again hold rivaroxaban 3 days prior, and 1 day after the procedure. He has LV dilation, with subtle inferior/posterior WMAs, maybe false positive given his recent negative nuclear scan. Based on prior discussion with the patient, we elected for conservative management of this, since he is asymptomatic. In case this represents asymptomatic CAD (given his multiple risk factors), e is on aspirin 81mg, and high dose statin for this. 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 Treatment will be beneficial for his hypertension, atrial fibrillation, and forprevention of future CHF. He is leaving for the [facility] in a week, so I provided him a paper referral,so he can set up a sleep study in [place], [place]. He will be seen in the cardiology clinic again in 10-12 months (next summer), with repeat EKG and repeat echo. I saw this patient without the assistance of the attending. No medication changes were made. Written prescriptions were provided. Solis Estrella MD [employer] Pager [phone] Daytime documented in this encounter Plan of Treatment Scheduled Referrals Name Type Priority Associated Diagnoses Order S chedule Referral to Sleep Outpatient Referral Routine Snoring Ord ered: [facility] Center 05/03/2014 documented as of this encounter Procedures Procedure Name Priority Date/Time Associated Diagnosis Comme nts EKG 12-LEAD Routine 05/03/2014 1:46 PM Atrial fibrillation Re sults for this EDT procedure are i n the results section . documented in this encounter Results EKG 12 Lead (05/03/2014 1:46 PM EDT) Component Value Ref Range Test Analysis Performed Pathologis t Method Time At Signature Ventricular rate 55 BPM MUSE SYSTEM Atrial Rate 55 BPM MUSE SYSTEM P-R Interval 190 ms MUSE SYSTEM QRS Duration 96 ms MUSE SYSTEM Q-T Interval 406 ms MUSE SYSTEM QTC Calculated 388 ms MUSE SYSTEM (Bezet) Calculated P [place] 47 degrees MUSE SYSTEM Calculated R [place] -38 degrees MUSE SYSTEM Calculated T [place] 2 degrees MUSE SYSTEM INTERPRETATION Sinus bradycardia MUSE SY STEM Left axis deviation Possible Inferior infarct (cited on or before 03-MAY-2014) When compared with ECG of 15-FEB-2014 13:38, No significant change was found Confirmed by MD Bouchra, Alexis ([id number]) on 05/03/2014 2:17:2 6 PM Specimen Anatomical Collection Method Collection Time Receive d Time (Source) Location / / Volume Laterality 05/03/2014 1:46 PM 4 2:[address] Varela MD ECG ORDERABLES Performing Organization Address City/State/ZIP Code Phon e Number MUSE SYSTEM documented in this encounter Visit Diagnoses Diagnosis Atrial fibrillation Snoring Other dyspnea and respiratory abnormalit y documented in this encounter Care Teams Wall Covering Contractor Relationship Specialty Start Date End Date Matt Duncan MD PCP - General 04/28/13 11/30/16 [address] [place] [address] documented as of this encounter
--- OUTSIDE RECORDS SUMMARY | 2022-04-14 13:32 | XMS_ITS | Encounter Summary ---
:1940 [place] [address] Care Team Providers Name Role Phone Matt Duncan MD Primary Care Provider Reason for Visit Reason Onset Date Comments Medication Refill 05/03/2014 Encounter Details Date Type Department Care Team Description 05/03/2014 Refill Cardiology at [facility] [place] Solis Estrella MD Medication Refill [facility] [place] [phone] CARDIOLOGY DEPT [phone] [place], [place] [address] (Wo rk) Social History Tobacco [...] on filedocumented in this encounter Care Teams Grounds Maintenance Worker Relationship Specialty Start Date End Date Matt Duncan MD PCP - General 04/28/13 11/30/16 [address] [place] [address] documented as of this encounter
== END 2022-04-13 13:23 | disposition home or self-care (01) ==
LOC: NCHCN 13:22
PROVIDERS: PCP Family Medicine; Visit Provider Family Medicine
DX: R73.03 Prediabetes (principal); I50.32 Chronic diastolic (congestive) heart failure; N18.30 Chronic kidney disease, stage 3 unspecified
CPT/HCPCS: 80048; 83036; 83880

== ENCOUNTER 2023-04-21 14:16 | Outpatient (REF) | payer MEDICARE, OTHER, SELFPAY ==
[2023-04-21 20:06] LABS: Anion Gap 12.1 mmol/L (3-11); BUN 14 mg/dL (7-18); CO2 22.9 mmol/L (21.0-32.0); Calcium 8.7 mg/dL (8.5-10.1); Chloride 106 mmol/L (98-107); Glucose 124 mg/dL (74-106); Potassium 3.8 mmol/L (3.5-5.1); Sodium 141 mmol/L (136-145)
[2023-04-21 20:46] LABS: CREATININE 1.4 mg/dL (0.70-1.30); Estimated GFR 50.18 (mL/min/1.73m2)
[2023-04-21 20:49] LABS: Folate > 20.0 ng/mL (8.6-20.0); Vitamin B12 > 2000 pg/mL (193-986)
[2023-04-21 21:25] LABS: NT-proBNP 1879 pg/mL (<300)
== END 2023-04-21 14:17 | disposition home or self-care (01) ==
LOC: NCHCN 14:16
PROVIDERS: PCP Family Medicine; Visit Provider Family Medicine
DX: I50.32 Chronic diastolic (congestive) heart failure (principal); N18.30 Chronic kidney disease, stage 3 unspecified
CPT/HCPCS: 80048; 82607; 82746; 83880

== ENCOUNTER 2023-05-19 21:27 | Outpatient (REF) | payer MEDICARE, OTHER, SELFPAY ==
[2023-05-19 17:00] LABS: Anion Gap 11.2 mmol/L (3-11); BUN 18 mg/dL (7-18); CO2 24.8 mmol/L (21.0-32.0); CREATININE 1.6 mg/dL (0.70-1.30); Calcium 9.3 mg/dL (8.5-10.1); Chloride 103 mmol/L (98-107); Estimated GFR 42.75 (mL/min/1.73m2); Glucose 118 mg/dL (74-106); NT-proBNP 1120 pg/mL (<300); Potassium 4.3 mmol/L (3.5-5.1); Sodium 139 mmol/L (136-145)
== END 2023-05-19 21:28 | disposition home or self-care (01) ==
LOC: NCHCN 21:27
PROVIDERS: PCP Family Medicine; Visit Provider Family Medicine
DX: I50.32 Chronic diastolic (congestive) heart failure (principal)
CPT/HCPCS: 80048; 83880

== ENCOUNTER → 2024-03-27 13:55 | Outpatient (BNVA) | payer MEDICARE, OTHER, SELFPAY | PROVIDERS: PCP Family Medicine; Referring Provider Family Medicine; Visit Provider Podiatrist | DX: L60.3 Nail dystrophy (principal); B35.1 Tinea unguium; D53.1 Other megaloblastic anemias, not elsewhere classified; N18.30 Chronic kidney disease, stage 3 unspecified; Z79.01 Long term (current) use of anticoagulants; R73.03 Prediabetes | CPT/HCPCS: 11721; 99203 ==

== ENCOUNTER 2024-04-28 19:27 | Outpatient (REF) | payer MEDICARE, OTHER, SELFPAY ==
[2024-04-28 15:38] LABS: HGB 14.2 g/dL (13.5-17.5); MCH 35.3 pg (27.0-33.0); MPV 10.1 fL (8.0-11.0); Platelet Count 202 10^3/uL (130-400); RBC 4.02 10^6/uL (4.36-5.78); RDW 13.7 % (11.8-14.1); RDW-SD 54.1 fL; WBC 9.25 10^3/uL (4.4-10.8)
[2024-04-28 15:43] LABS: MCV 107 fL (80-95)
[2024-04-28 16:08] LABS: ALT 19 U/L (16-63); AST 18 U/L (15-37); Albumin 3.6 g/dL (3.4-5.0); Alkaline Phosphatase 81 U/L (46-116); Anion Gap 10.5 mmol/L (3-11); BUN 15 mg/dL (7-18); Bilirubin, Total 1.07 mg/dL (0.2-1.0); CO2 24.5 mmol/L (21.0-32.0); CREATININE 1.5 mg/dL (0.70-1.30); Calcium 9.1 mg/dL (8.5-10.1); Chloride 109 mmol/L (98-107); Estimated GFR 45.91 (mL/min/1.73m2); Glucose 96 mg/dL (74-106); NT-proBNP 1339 pg/mL (<300); Potassium 4.8 mmol/L (3.5-5.1); Sodium 144 mmol/L (136-145); Total Protein 6.9 g/dL (6.4-8.2)
[2024-04-28 16:35] LABS: Hemoglobin A1C 5.6 % (<5.7)
[2024-04-30 07:07] LABS: Vitamin B12 > 2000 pg/mL (193-986)
[2024-05-01 12:21] LABS: Folate >24.0 ng/mL (See Note)
== END 2024-04-28 19:28 | disposition home or self-care (01) ==
LOC: NCHCN 19:27
PROVIDERS: PCP Family Medicine; Visit Provider Family Medicine
DX: R73.03 Prediabetes (principal); I50.32 Chronic diastolic (congestive) heart failure
CPT/HCPCS: 80053; 85027; 82607; 82746; 83036; 83880

== ENCOUNTER → 2024-12-25 12:53 | Outpatient (BNVA) | payer MEDICARE, OTHER, SELFPAY | PROVIDERS: PCP Family Medicine; Referring Provider Family Medicine; Visit Provider Podiatrist | DX: L60.3 Nail dystrophy (principal); B35.1 Tinea unguium; D53.1 Other megaloblastic anemias, not elsewhere classified; N18.30 Chronic kidney disease, stage 3 unspecified; Z79.01 Long term (current) use of anticoagulants; R09.89 Other specified symptoms and signs involving the circulatory and respiratory systems; R60.0 Localized edema; R20.8 Other disturbances of skin sensation; L60.2 Onychogryphosis; L60.8 Other nail disorders; L85.8 Other specified epidermal thickening; R23.8 Other skin changes | CPT/HCPCS: 11721 ==

== ENCOUNTER 2024-12-27 10:52 | Outpatient (REF) | payer MEDICARE, OTHER, SELFPAY ==
[2024-12-27 16:25] LABS: Microalb ug/mg Crea 7.8 ug/mg Cr
== END 2024-12-27 10:53 | disposition home or self-care (01) ==
LOC: NCHCN 10:52
PROVIDERS: PCP Family Medicine; Visit Provider Family Medicine
DX: I10 Essential (primary) hypertension (principal)
CPT/HCPCS: 82043; 82570

== ENCOUNTER 2025-03-28 15:32 | Outpatient (REF) | payer MEDICARE, SELFPAY ==
[2025-03-28 16:05] LABS: HCT 40.9 % (40.0-50.0); HGB 13.6 g/dL (13.5-17.5); MCH 34.3 pg (27.0-33.0); MCHC 33.3 % (32.0-36.0); MCV 103 fL (80-95); MPV 10.3 fL (8.0-11.0); Platelet Count 180 10^3/uL (130-400); RBC 3.97 10^6/uL (4.36-5.78); RDW 13.9 % (11.8-14.1); RDW-SD 52.9 fL; WBC 6.53 10^3/uL (4.4-10.8)
[2025-03-28 16:24] LABS: ALT 18 U/L (16-63); AST 15 U/L (15-37); Albumin 3.5 g/dL (3.4-5.0); Alkaline Phosphatase 71 U/L (46-116); Anion Gap 12.4 mmol/L (3-11); BUN 19 mg/dL (7-18); Bilirubin, Total 1.0 mg/dL (0.2-1.0); CO2 20.6 mmol/L (21.0-32.0); Calcium 8.6 mg/dL (8.5-10.1); Chloride 104 mmol/L (98-107); Estimated GFR 45.91 (mL/min/1.73m2); Glucose 116 mg/dL (74-106); Potassium 4.5 mmol/L (3.5-5.1); Sodium 137 mmol/L (136-145); TSH (W/Ref FT4) 1.27 uIU/mL (0.36-3.74); Total Protein 6.5 g/dL (6.4-8.2)
[2025-03-28 17:07] LABS: Hemoglobin A1C 5.7 % (<5.7)
== END 2025-03-28 15:33 | disposition home or self-care (01) ==
LOC: NCHCN 15:32
PROVIDERS: PCP Family Medicine; Visit Provider Family Medicine
DX: R73.03 Prediabetes (principal); I48.0 Paroxysmal atrial fibrillation
CPT/HCPCS: 80053; 85027; 83036; 84443

== ENCOUNTER → 2025-04-09 11:13 | Outpatient (BNVA) | payer MEDICARE, OTHER, SELFPAY | PROVIDERS: PCP Family Medicine; Referring Provider Family Medicine; Visit Provider Podiatrist | DX: L60.3 Nail dystrophy (principal); B35.1 Tinea unguium; N18.30 Chronic kidney disease, stage 3 unspecified; D53.1 Other megaloblastic anemias, not elsewhere classified; R09.89 Other specified symptoms and signs involving the circulatory and respiratory systems; L60.0 Ingrowing nail; R20.8 Other disturbances of skin sensation; I83.93 Asymptomatic varicose veins of bilateral lower extremities; L65.9 Nonscarring hair loss, unspecified; L60.2 Onychogryphosis; L60.8 Other nail disorders; R23.4 Changes in skin texture | CPT/HCPCS: 11721 ==